=== PATIENT | female | born 1975 | race Caucasian/White ===

== ENCOUNTER 2016-08-06 19:16 | Emergency (ER) | payer MEDICARE ==
[~2016-08-06] VITALS: Ht 165.1 cm; Wt 99.8 kg
[~2016-08-06 19:16] MED LIST: ABILIFY15 MG PO; ABILIFY5 MG PO; ALPHA LIPOIC100 MG PO; ALPHA LIPOIC300 MG PO; ARMOUR THYROID120 MG PO; ARMOUR THYROID90 MG PO; ATARAX25 MG PO; ATIVAN1 MG PO; BENTYL10 MG PO; BENTYL20 MG PO; BONIVA150 MG PO; BUSPIRONE10 MG PO; CALCIUM600 M2 PO; CALCIUM600 MG PO; CARAFATE1 G1 PO; CEFTIN PO; CEFTIN500 M1 PO; CEPHALEXIN500 M1 PO; CIPRO500 MG PO; CIPROFLOXACIN500 MG PO; CLARITIN10 MG PO; CLEOCIN150 MG PO; COLACE100 MG PO; COMBIVENT1 ARO IH; COREG6.25 MG PO; CYCLOBENZAPRINE5 M3 PO; Carafate1 GM PO; DELTASONE20 MG PO; DEXILANT60 MG PO; DICYCLOMINE20 MG PO; DOMPERIDONE1 POW; DOXEPIN100 MG PO; DOXYCYCLINE100 MG PO; DULCOLAX5 MG PO; DULE1ARO INH; DULER200 INH; E MYCIN PO; EES200 MG/5 M PO; ELMIRON100 MG PO; FETZIMA 80 MG PO; FETZIMA120 M1 PO; FLOMAX0.4 MG PO; FLOVENT 220 M220 MCG INH; FLUTICASON0.05 MG/AC NAS; FORADIL AERO0.012 MG IH; FORADIL AEROLIZER; Flovent 220 M220 MCG INH; HYDROCODONE BIT1 T11 PO; HYTONE 2.5% LOT.2 OZ PO; KLONOPIN1 M1 PO; KLONOPIN1 MG PO; KLONOPIN2 MG PO; LATU40TA1 PO; LATU80TA PO; LATUDA PO; LEVSIN0.125 M1 SL; LISINOPRIL5 MG PO; LOMOTIL 0.025 M1 TA1 PO; LORATADINE10 M1 PO; MACROBID100 M1 PO; MACRODANTIN100 MG PO; MEDROL DOSEPAK4 MG PO; MIRALAX17 GM/PACK PO; MULTIPLE VITAMI1 CAP PO; MULTIVITAMIN FO1 CAP PO; NAPROSYN500 MG PO; NEXIUM40 MG PO; NORCO 325 MG-51 TAB PO; OMNICEF300 MG PO; PEPCID40 MG PO; PERIDEX 480 ML480 ML PO; PHENERGAN12.5 MG RC; PHENERGAN25 M3 PO; PHENERGAN25 MG R; PREDNICOT20 MG PO; PREDNISONE10 MG PO; PREVACID30 MG PO; PRILOSEC20 MG PO; PRISTIQ50 MG PO; PROAIR HFA8.5 GM INH; PROTONIX40 MG PO; PYRIDIUM100 MG PO; PYRIDIUM200 M1 PO; PYRIDIUM200 MG PO; Phenergan25 MG PO; QUESTRAN LIGHT4 GM PO; REGLAN5 MG PO; ROBITUSSIN DM 105 ML PO; SEREVENT DISKU50 MCG INH; SEREVENT21 MCG/ACT IH; SINGULAIR10 MG PO; SPIRIVA18 MCG PO; SUDAFED60 MG PO; SYNTHROID,LEV100 MCG PO; SYNTHROID0.1 MG PO; Synthroid,Lev150 MCG PO; TESSALON PERLE200 MG PO; TOPAMAX50 MG PO; TUMS500 MG PO; TYLENOL W/CODEI1 TA2 PO; TYLENOL325 M1 PO; ULTRAM50 MG PO; VENTOLIN 02.5 MG/3 M INH; VENTOLIN H0.09 MG/AC IH; VENTOLIN0.09 MG/AC IH; VIBERZI100 MG PO; VIBRAMYCIN100 MG PO; VIIBRYD PO; VIIBRYD40 PO; VISTARIL50 MG PO; VITAMIN D PO; VITAMIN D400 I1 PO; VITAMIN D400 IU PO; VITAMIN D5000 I2 PO; VIVACTIL10 MG PO; XIFAXAN550 MG PO; ZANTAC 300300 MG PO; ZITHROMAX Z PA250 MG PO; ZITHROMAX250 MG PO; ZOFRAN ODT4 MG PO; ZOFRAN ODT4 MG SL; ZYRTEC10 MG PO; Zofran4 MG PO; [UNRECOGNIZED DRUG - OTHER]; [UNRECOGNIZED DRUG - OTHER] PO; [UNRECOGNIZED DRUG - OTHER] PO; [UNRECOGNIZED DRUG - OTHER] PO; [UNRECOGNIZED DRUG - REMARK]; [UNRECOGNIZED DRUG - REMARK]
[2016-08-06 20:02] LABS: BASO % 0.4 % (0.0-1.0); EOS # 0.1 10*3/uL (0.0-0.4); EOS % 1.5 % (1.0-4.0); HEMATOCRIT 41.4 % (37.0-47.0); LYMPH # 2.2 10*3/uL (1.3-4.4); LYMPH % 26.9 % (27.0-41.0); MEAN CORPUSCULAR HGB 26.7 pg (27.0-31.0); MEAN CORPUSCULAR HGB CONC 31.4 g/dl (33.0-37.0); MEAN PLATELET VOLUME 9.7 fl (9.6-12.3); MONO # 0.7 10*3/uL (0.1-1.0); MONO % 9.1 % (3.0-9.0); NEUT # 5.1 10*3/uL (2.3-7.9); NEUT % 61.9 % (47.0-73.0); PLATELET COUNT AUTOMATED 261 10*3/uL (130-400); RED BLOOD COUNT 4.87 10*6/uL (4.10-5.10); RED CELL DISTRI WIDTH 15.4 % (0-14.5); WHITE BLOOD COUNT 8.2 10*3/uL (4.8-10.8)
[2016-08-06 20:27] LABS: ALBUMIN 3.6 gm/dl (3.1-4.5); ALKALINE PHOSPHATASE 134 U/L (45-117); BILIRUBIN, DIRECT < 0.1 mg/dL (0.0-0.2); BILIRUBIN, TOTAL 0.2 mg/dl (0.2-1.0); BUN 6 mg/dl (7-24); CARBON DIOXIDE 24 mmol/L (21-32); CHLORIDE 108 mmol/L (98-107); EST GLOM FILT AFRICAN AMERICAN > 60 ml/min; GLUCOSE 91 mg/dL (65-99); SGOT/AST 17 IU/L (3-35); SGPT/ALT 24 U/L (12-78); SODIUM 142 mmol/L (136-145); TOTAL PROTEIN 7.6 gm/dL (6.4-8.2)
[2016-08-06 20:44] LABS: BILIRUBIN NEGATIVE (NEGATIVE); BLOOD NEGATIVE (NEGATIVE); CLARITY SL CLOUDY (CLEAR); COLOR YELLOW (YELLOW); GLUCOSE NEGATIVE (NEGATIVE); KETONE NEGATIVE (NEGATIVE); LEUKO ESTERASE 2+ (NEGATIVE); NITRITE NEGATIVE (NEGATIVE); PROTEIN NEGATIVE (NEGATIVE)
[2016-08-06 20:56] LABS: URINE REFLEX COMMENT YES (NO)
[2016-08-06 21:29] VITALS: BP 155/81
[2016-08-06] MEDS ORDERED: PHENERGAN25 M3 PO (21:56)
== END 2016-08-06 21:56 | disposition home or self-care (01) ==
LOC: ED 19:16
PROVIDERS: Emergency Medicine
DX: R10.84 Generalized abdominal pain (principal); R11.2 Nausea with vomiting, unspecified; J45.909 Unspecified asthma, uncomplicated; Z90.710 Acquired absence of both cervix and uterus; Z88.2 Allergy status to sulfonamides; Z88.1 Allergy status to other antibiotic agents; Z88.8 Allergy status to other drugs, medicaments and biological substances; Z88.0 Allergy status to penicillin

== ENCOUNTER 2016-08-18 09:27 | Emergency (ER) | payer MEDICARE ==
[2016-08-18 09:38] VITALS: BP 150/88
[2016-08-18] MEDS ORDERED: HYCODAN,HYDROME10 ML PO (11:00)
== END 2016-08-18 10:36 | disposition home or self-care (01) ==
LOC: ED 09:27
DX: J00 Acute nasopharyngitis [common cold] (principal); Z88.0 Allergy status to penicillin; Z88.1 Allergy status to other antibiotic agents; Z88.8 Allergy status to other drugs, medicaments and biological substances; Z79.899 Other long term (current) drug therapy

== ENCOUNTER 2016-11-01 18:42 | Emergency (ER) | payer MEDICARE ==
[~2016-11-01] VITALS: Ht 165.1 cm; Wt 97.5 kg
[~2016-11-01 18:42] MED LIST changes: +HYCODAN,HYDROME10 ML PO
[2016-11-01] MEDS ORDERED: HYDROXYZINE PAM25 M1 PO (19:06)
[2016-11-01] MEDS ORDERED: BREO ELLIPTA 11 EACH IH (19:06)
[2016-11-01 19:56] LABS: BASO # 0.1 10*3/uL (0.0-0.1); BASO % 0.3 % (0.0-1.0); EOS % 0.2 % (1.0-4.0); HEMATOCRIT 41.3 % (37.0-47.0); HEMOGLOBIN 13.2 g/dl (12.0-16.0); LYMPH # 1.5 10*3/uL (1.3-4.4); LYMPH % 9.4 % (27.0-41.0); MEAN CELL VOLUME 83.4 fl (81.0-99.0); MEAN CORPUSCULAR HGB 26.7 pg (27.0-31.0); MEAN PLATELET VOLUME 9.7 fl (9.6-12.3); MONO # 0.8 10*3/uL (0.1-1.0); MONO % 5.2 % (3.0-9.0); NEUT # 13.6 10*3/uL (2.3-7.9); NEUT % 84.7 % (47.0-73.0); PLATELET COUNT AUTOMATED 271 10*3/uL (130-400); RED BLOOD COUNT 4.95 10*6/uL (4.10-5.10); RED CELL DISTRI WIDTH 15.3 % (0-14.5); WHITE BLOOD COUNT 16.1 10*3/uL (4.8-10.8)
[2016-11-01 20:02] LABS: BILIRUBIN NEGATIVE (NEGATIVE); BLOOD NEGATIVE (NEGATIVE); CLARITY SL CLOUDY (CLEAR); COLOR YELLOW (YELLOW); GLUCOSE NEGATIVE (NEGATIVE); KETONE NEGATIVE (NEGATIVE); LEUKO ESTERASE 2+ (NEGATIVE); NITRITE NEGATIVE (NEGATIVE); PROTEIN NEGATIVE (NEGATIVE); UROBILINOGEN 0.2 E.U./dl (0.2-1.0)
[2016-11-01 20:10] LABS: BACTERIA 3+; RBC 0-2 rbc/hpf (0-2); URINE REFLEX COMMENT YES (NO); WBC 21-30 wbc/hpf (0-5)
[2016-11-01 20:11] LABS: ALBUMIN 3.6 gm/dl (3.1-4.5); ALKALINE PHOSPHATASE 119 U/L (45-117); BILIRUBIN, TOTAL 0.3 mg/dl (0.2-1.0); BUN 13 mg/dl (7-24); CARBON DIOXIDE 22 mmol/L (21-32); CHLORIDE 109 mmol/L (98-107); EST GLOM FILT AFRICAN AMERICAN > 60 ml/min; GLUCOSE 88 mg/dL (65-99); POTASSIUM 3.9 mmol/L (3.5-5.1); SGOT/AST 16 IU/L (3-35); SGPT/ALT 26 U/L (12-78); SODIUM 140 mmol/L (136-145); TOTAL PROTEIN 7.7 gm/dL (6.4-8.2)
[2016-11-01 20:45] VITALS: BP 130/82
[2016-11-01] MEDS ORDERED: ZOFRAN ODT4 MG SL (20:55)
[2016-11-01] MEDS ORDERED: MACRODANTIN100 M1 PO (20:55)
== END 2016-11-01 22:03 | disposition home or self-care (01) ==
LOC: ED 18:42
PROVIDERS: Nurse Practitioner Family
DX: A08.4 Viral intestinal infection, unspecified (principal); N30.00 Acute cystitis without hematuria; Z88.0 Allergy status to penicillin; Z88.1 Allergy status to other antibiotic agents; Z88.2 Allergy status to sulfonamides; Z79.899 Other long term (current) drug therapy

== ENCOUNTER 2016-11-06 17:34 | Emergency (ER) | payer MEDICARE ==
[~2016-11-06] VITALS: Wt 95.3 kg
[~2016-11-06 17:34] MED LIST changes: -AMINOPHYLLIN200 MG PO
[2016-11-06 17:48] VITALS: BP 146/100
[2016-11-06 18:33] LABS: BILIRUBIN NEGATIVE (NEGATIVE); BLOOD NEGATIVE (NEGATIVE); CLARITY SL CLOUDY (CLEAR); COLOR YELLOW (YELLOW); GLUCOSE NEGATIVE (NEGATIVE); KETONE NEGATIVE (NEGATIVE); LEUKO ESTERASE 1+ (NEGATIVE); NITRITE NEGATIVE (NEGATIVE); PH 5.5 (5.0-9.0); PROTEIN NEGATIVE (NEGATIVE); SPECIFIC GRAVITY 1.025 (1.005-1.030)
[2016-11-06 18:49] LABS: BACTERIA 4+; EPITHELIAL CELLS 30-35; WBC 51-100 wbc/hpf (0-5)
[2016-11-06 19:47] LABS: BASO % 0.4 % (0.0-1.0); EOS # 0.1 10*3/uL (0.0-0.4); HEMOGLOBIN 13.2 g/dl (12.0-16.0); LYMPH # 2.4 10*3/uL (1.3-4.4); LYMPH % 24.1 % (27.0-41.0); MEAN CELL VOLUME 84.7 fl (81.0-99.0); MEAN CORPUSCULAR HGB 26.6 pg (27.0-31.0); MEAN CORPUSCULAR HGB CONC 31.4 g/dl (33.0-37.0); MEAN PLATELET VOLUME 9.8 fl (9.6-12.3); MONO # 0.9 10*3/uL (0.1-1.0); MONO % 8.8 % (3.0-9.0); NEUT # 6.4 10*3/uL (2.3-7.9); NEUT % 65.4 % (47.0-73.0); PLATELET COUNT AUTOMATED 289 10*3/uL (130-400); RED BLOOD COUNT 4.96 10*6/uL (4.10-5.10); RED CELL DISTRI WIDTH 15.3 % (0-14.5); WHITE BLOOD COUNT 9.8 10*3/uL (4.8-10.8)
[2016-11-06 20:03] LABS: ALBUMIN 3.7 gm/dl (3.1-4.5); ALKALINE PHOSPHATASE 125 U/L (45-117); BILIRUBIN, TOTAL 0.2 mg/dl (0.2-1.0); BUN 12 mg/dl (7-24); CARBON DIOXIDE 23 mmol/L (21-32); CHLORIDE 108 mmol/L (98-107); EST GLOM FILT AFRICAN AMERICAN > 60 ml/min; GLUCOSE 97 mg/dL (65-99); POTASSIUM 4.7 mmol/L (3.5-5.1); SGOT/AST 14 IU/L (3-35); SGPT/ALT 19 U/L (12-78); SODIUM 138 mmol/L (136-145); TOTAL PROTEIN 7.8 gm/dL (6.4-8.2)
[2016-11-06] MEDS ORDERED: AMINOPHYLLIN200 MG PO (20:54)
== END 2016-11-06 21:04 | disposition home or self-care (01) ==
LOC: ED 17:34
PROVIDERS: Physician Assistant
DX: N30.00 Acute cystitis without hematuria (principal); R19.7 Diarrhea, unspecified; Z88.0 Allergy status to penicillin; Z88.1 Allergy status to other antibiotic agents; Z88.2 Allergy status to sulfonamides; Z79.899 Other long term (current) drug therapy

== ENCOUNTER → 2016-11-06 | Outpatient (CLI) | payer MEDICARE ==
[~2016-11-06] MED LIST changes: +AMINOPHYLLIN200 MG PO; +BREO ELLIPTA 11 EACH IH; +HYDROXYZINE PAM25 M1 PO; +MACRODANTIN100 M1 PO
== END | disposition home or self-care (01) ==
LOC: US 08:51
DX: K76.0 Fatty (change of) liver, not elsewhere classified (principal); R10.84 Generalized abdominal pain

== ENCOUNTER → 2016-11-06 | Outpatient (CLI) | payer MEDICARE | END | disposition home or self-care (01) | LOC: LAB 21:08 | DX: A04.7 Enterocolitis due to Clostridium difficile (principal) ==

== ENCOUNTER → 2016-11-12 | Outpatient (CLI) | payer MEDICARE ==
[~2016-11-12] MED LIST changes: +AMINOPHYLLIN200 MG PO
[2016-11-12 16:30] LABS: BASO # 0.1 10*3/uL (0.0-0.1); BASO % 0.5 % (0.0-1.0); EOS # 0.1 10*3/uL (0.0-0.4); EOS % 0.5 % (1.0-4.0); HEMATOCRIT 41.1 % (37.0-47.0); LYMPH # 2.8 10*3/uL (1.3-4.4); MEAN CORPUSCULAR HGB 26.3 pg (27.0-31.0); MEAN CORPUSCULAR HGB CONC 31.6 g/dl (33.0-37.0); MONO # 0.9 10*3/uL (0.1-1.0); MONO % 9.6 % (3.0-9.0); NEUT # 5.4 10*3/uL (2.3-7.9); NEUT % 59.1 % (47.0-73.0); PLATELET COUNT AUTOMATED 286 10*3/uL (130-400); RED BLOOD COUNT 4.95 10*6/uL (4.10-5.10); RED CELL DISTRI WIDTH 15.4 % (0-14.5); WHITE BLOOD COUNT 9.2 10*3/uL (4.8-10.8)
[2016-11-12 17:07] LABS: FREE T4 1.22 ng/dl (0.76-1.46)
[2016-11-12 17:12] LABS: THYROID STIM HORMONE (HS) 2.04 uIU/ml (0.358-4.75)
== END | disposition home or self-care (01) ==
LOC: LAB 15:54
PROVIDERS: Nurse Practitioner Family
DX: D72.819 Decreased white blood cell count, unspecified (principal); E03.9 Hypothyroidism, unspecified

== ENCOUNTER 2016-11-17 20:34 | Emergency (ER) | payer MEDICARE ==
[~2016-11-17] VITALS: Ht 165.1 cm; Wt 96.2 kg
[2016-11-17 21:09] VITALS: BP 144/82
[2016-11-17 21:12] LABS: BILIRUBIN NEGATIVE (NEGATIVE); BLOOD TRACE-INTACT (NEGATIVE); CLARITY SL CLOUDY (CLEAR); COLOR YELLOW (YELLOW); GLUCOSE NEGATIVE (NEGATIVE); KETONE NEGATIVE (NEGATIVE); LEUKO ESTERASE 2+ (NEGATIVE); NITRITE NEGATIVE (NEGATIVE); PH 5.5 (5.0-9.0); PROTEIN NEGATIVE (NEGATIVE); SPECIFIC GRAVITY 1.025 (1.005-1.030)
[2016-11-17 21:33] LABS: BACTERIA 1+; EPITHELIAL CELLS 20-25; URINE REFLEX COMMENT YES (NO); WBC TNTC wbc/hpf (0-5)
[2016-11-17] MEDS ORDERED: MACROBID100 M1 PO (22:10)
[2016-11-17] MEDS ORDERED: LOMOTIL 0.025 M1 TA1 PO (22:10)
== END 2016-11-17 22:15 | disposition home or self-care (01) ==
LOC: ED 20:34
PROVIDERS: Emergency Medicine Emergency Medical Services
DX: K58.9 Irritable bowel syndrome, unspecified (principal); N39.0 Urinary tract infection, site not specified; F17.200 Nicotine dependence, unspecified, uncomplicated; Z79.899 Other long term (current) drug therapy; Z88.0 Allergy status to penicillin; Z88.1 Allergy status to other antibiotic agents; Z88.2 Allergy status to sulfonamides

== ENCOUNTER 2016-12-05 23:02 | Emergency (ER) | payer MEDICARE ==
[~2016-12-05] VITALS: Ht 165.1 cm; Wt 97.1 kg
[2016-12-05 23:08] VITALS: BP 126/82
[2016-12-06] MEDS ORDERED: NAPROSYN500 MG PO (00:25)
== END 2016-12-06 00:42 | disposition home or self-care (01) ==
LOC: ED 23:02
DX: S09.90XA Unspecified injury of head, initial encounter (principal); K58.9 Irritable bowel syndrome, unspecified; J45.909 Unspecified asthma, uncomplicated; Z90.710 Acquired absence of both cervix and uterus; Z98.890 Other specified postprocedural states; Z79.899 Other long term (current) drug therapy; Z88.0 Allergy status to penicillin; Z88.2 Allergy status to sulfonamides; Z88.1 Allergy status to other antibiotic agents; W20.8XXA Other cause of strike by thrown, projected or falling object, initial encounter; Y93.89 Activity, other specified; Y92.89 Other specified places as the place of occurrence of the external cause; Y99.9 Unspecified external cause status

== ENCOUNTER 2017-01-26 17:27 | Emergency (ER) | payer MEDICARE ==
[~2017-01-26] VITALS: Ht 160 cm; Wt 77.1 kg
[2017-01-26 17:31] VITALS: BP 120/80
[2017-01-26 18:09] LABS: BASO % 0.3 % (0.0-1.0); EOS # 0.1 10*3/uL (0.0-0.4); EOS % 1.1 % (1.0-4.0); HEMATOCRIT 38.1 % (37.0-47.0); HEMOGLOBIN 11.9 g/dl (12.0-16.0); LYMPH # 2.8 10*3/uL (1.3-4.4); LYMPH % 31.3 % (27.0-41.0); MEAN CELL VOLUME 83.7 fl (81.0-99.0); MEAN CORPUSCULAR HGB 26.2 pg (27.0-31.0); MEAN CORPUSCULAR HGB CONC 31.2 g/dl (33.0-37.0); MEAN PLATELET VOLUME 9.4 fl (9.6-12.3); MONO % 10.7 % (3.0-9.0); NEUT # 5.1 10*3/uL (2.3-7.9); NEUT % 56.4 % (47.0-73.0); PLATELET COUNT AUTOMATED 239 10*3/uL (130-400); RED BLOOD COUNT 4.55 10*6/uL (4.10-5.10); RED CELL DISTRI WIDTH 15.9 % (0-14.5)
[2017-01-26 18:35] LABS: ALBUMIN 3.4 gm/dl (3.1-4.5); ALKALINE PHOSPHATASE 124 U/L (45-117); BILIRUBIN, TOTAL 0.2 mg/dl (0.2-1.0); BUN 15 mg/dl (7-24); CARBON DIOXIDE 22 mmol/L (21-32); CHLORIDE 110 mmol/L (98-107); EST GLOM FILT AFRICAN AMERICAN > 60 ml/min; GLUCOSE 90 mg/dL (65-99); POTASSIUM 4.3 mmol/L (3.5-5.1); SGOT/AST 15 IU/L (3-35); SGPT/ALT 24 U/L (12-78); SODIUM 143 mmol/L (136-145)
[2017-01-26 18:36] LABS: TROPONIN I < 0.015 ng/ml (<0.045)
== END 2017-01-26 18:54 | disposition home or self-care (01) ==
LOC: ED 17:27
PROVIDERS: Emergency Medicine
DX: R07.9 Chest pain, unspecified (principal); K21.0 Gastro-esophageal reflux disease with esophagitis; J45.909 Unspecified asthma, uncomplicated; K58.9 Irritable bowel syndrome, unspecified; Z88.0 Allergy status to penicillin; Z88.1 Allergy status to other antibiotic agents; Z88.2 Allergy status to sulfonamides; Z79.899 Other long term (current) drug therapy

== ENCOUNTER 2017-03-01 18:04 | Emergency (ER) | payer MEDICARE ==
[~2017-03-01] VITALS: Ht 165.1 cm; Wt 97.5 kg
[2017-03-01 19:02] VITALS: BP 65/54
[2017-03-01] MEDS ORDERED: Motrin,Rufen800 MG PO (20:30)
== END 2017-03-01 20:32 | disposition home or self-care (01) ==
LOC: ED 18:04
DX: S80.851A Superficial foreign body, right lower leg, initial encounter (principal); K58.9 Irritable bowel syndrome, unspecified; J45.909 Unspecified asthma, uncomplicated; Z79.899 Other long term (current) drug therapy; Z90.710 Acquired absence of both cervix and uterus; Z88.0 Allergy status to penicillin; Z88.2 Allergy status to sulfonamides; Z88.1 Allergy status to other antibiotic agents; Z88.8 Allergy status to other drugs, medicaments and biological substances; X58.XXXA Exposure to other specified factors, initial encounter; Y93.89 Activity, other specified; Y92.89 Other specified places as the place of occurrence of the external cause; Y99.9 Unspecified external cause status

== ENCOUNTER 2017-03-16 19:04 | Emergency (ER) | payer MEDICARE ==
[~2017-03-16] VITALS: Ht 165.1 cm; Wt 97.5 kg
[~2017-03-16 19:04] MED LIST changes: +Motrin,Rufen800 MG PO
[2017-03-16 19:09] VITALS: BP 120/70
== END 2017-03-16 21:35 | disposition home or self-care (01) ==
LOC: ED 19:04
DX: R51 Headache (principal); J02.9 Acute pharyngitis, unspecified; R11.2 Nausea with vomiting, unspecified; Z88.0 Allergy status to penicillin; Z88.2 Allergy status to sulfonamides; Z88.1 Allergy status to other antibiotic agents; Z88.8 Allergy status to other drugs, medicaments and biological substances; Z79.899 Other long term (current) drug therapy

== ENCOUNTER 2017-06-04 01:34 | Emergency (ER) | payer MEDICARE ==
[~2017-06-04] VITALS: Ht 165.1 cm; Wt 95.3 kg
[2017-06-04 01:36] VITALS: BP 116/74
[2017-06-04 01:48] LABS: BILIRUBIN NEGATIVE (NEGATIVE); BLOOD NEGATIVE (NEGATIVE); CLARITY SL CLOUDY (CLEAR); COLOR YELLOW (YELLOW); GLUCOSE NEGATIVE (NEGATIVE); KETONE TRACE (NEGATIVE); LEUKO ESTERASE 2+ (NEGATIVE); NITRITE NEGATIVE (NEGATIVE); PH 6.5 (5.0-9.0); SPECIFIC GRAVITY 1.025 (1.005-1.030)
[2017-06-04 01:55] LABS: EPITHELIAL CELLS 35-40; WBC 31-40 wbc/hpf (0-5)
[2017-06-04 01:56] LABS: BACTERIA TRACE
[2017-06-04 02:19] LABS: BASO % 0.4 % (0.0-1.0); EOS # 0.1 10*3/uL (0.0-0.4); EOS % 1.5 % (1.0-4.0); HEMATOCRIT 42.4 % (37.0-47.0); HEMOGLOBIN 13.8 g/dl (12.0-16.0); LYMPH # 2.9 10*3/uL (1.3-4.4); LYMPH % 33.8 % (27.0-41.0); MEAN CELL VOLUME 88.3 fl (81.0-99.0); MEAN CORPUSCULAR HGB 28.8 pg (27.0-31.0); MEAN CORPUSCULAR HGB CONC 32.5 g/dl (33.0-37.0); MEAN PLATELET VOLUME 10.2 fl (9.6-12.3); MONO # 0.8 10*3/uL (0.1-1.0); NEUT # 4.6 10*3/uL (2.3-7.9); NEUT % 54.9 % (47.0-73.0); PLATELET COUNT AUTOMATED 218 10*3/uL (130-400); WHITE BLOOD COUNT 8.4 10*3/uL (4.8-10.8)
[2017-06-04 02:44] LABS: ALBUMIN 3.9 gm/dl (3.1-4.5); ALKALINE PHOSPHATASE 119 U/L (45-117); BUN 10 mg/dl (7-24); CHLORIDE 108 mmol/L (98-107); LIPASE 97 U/L (73-393); POTASSIUM 3.9 mmol/L (3.5-5.1); SGOT/AST 27 IU/L (3-35); SGPT/ALT 26 U/L (12-78); SODIUM 141 mmol/L (136-145); TOTAL PROTEIN 7.6 gm/dL (6.4-8.2)
[2017-06-04] MEDS ORDERED: MACROBID100 M1 PO (03:26)
[2017-06-04] MEDS ORDERED: ZOFRAN ODT4 MG SL (03:26)
== END 2017-06-04 04:10 | disposition home or self-care (01) ==
LOC: ED 01:34
PROVIDERS: Emergency Medicine Emergency Medical Services
DX: N39.0 Urinary tract infection, site not specified (principal); Z88.0 Allergy status to penicillin; Z88.2 Allergy status to sulfonamides

== ENCOUNTER 2017-06-13 15:21 | Inpatient (IN) | payer MEDICARE ==
[~2017-06-13] VITALS: Ht 165.1 cm; Wt 90.0 kg
--- NOTE | ~2017-06-13 | CON ---
[place], [place] REPORT OF CONSULTATION NAME: VERONICA ELIAS [facility] [id number] UNIT #: [id number] ROOM: 501 DOCTOR: BARBRA JARAMILLOOPHELIANIK BIRTHDATE: [birth year] DOS: 06/14/2017 HISTORY OF PRESENT ILLNESS: A 42-year-old patient who presented with nausea, vomiting for 1 month duration and she had to be admitted for definitive assessment, she had wolff cultures, genital, urine and blood cultures, the only positivity came back gram-positive cocci Streptococcus species sensitive to penicillin and vancomycin. CBC: White blood cell was 11 initially H and H of 15 and 46. Differential within normal limit. Comprehensive metabolic panel: BUN and creatinine within normal limits. Electrolytes were balanced. Bilirubin 0.4, alkaline phosphatase 128. Urinalysis, inactive urine. Troponin was normal. 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 Troponin was negative. Comprehensive metabolic panel was negative. Trichomonas was addressed, no growth was noticed. PAST MEDICAL HISTORY: Associated with gastroesophageal reflux, bipolar, depression, anxiety, migraines cephalalgia, hypothyroidism, and interstitial cystitis has been recorded. PAST SURGICAL HISTORY: Esophagectomy, partial gastric surgery, hysterectomy. SOCIAL HISTORY: Nonsmoker, nonalcohol consumer. ALLERGIES: CIPROFLOXACIN, SULFA, PENICILLIN, METOCLOPRAMIDE. MEDICATIONS: List has been reviewed. The patient is on ibuprofen 800 mg t.i.d. On the other hand, the patient is on pantoprazole. REVIEW OF SYSTEMS: HEENT: Denies double vision, blurred vision. RESPIRATORY: Denies acute shortness of breath. CARDIOVASCULAR: Denies chest pain. DIGESTIVE SYSTEM: Nausea, vomiting, diarrhea. PHYSICAL EXAMINATION: VITAL SIGNS: Stable. HEENT Within normal limits. NECK: Supple, no thyromegaly, no cervical lymphadenopathy. CHEST: Symmetric anatomy, equal expansion. HEART: Normal sinus rhythm, no gallop, no murmur. ABDOMEN: Soft. No hepato-organomegaly, slight obesity. No rebound effect was noticed. EXTREMITIES: No cyanosis, no pedal edema. NEUROLOGIC: Appears to be alert and oriented. LABORATORY DATA: Reviewed. Records reviewed. IMPRESSION: Nausea, vomiting, ruling out dislocated gastric pouch, herniation into diaphragm, past history of esophageal and gastric repair. Details on available migraine cephalalgia, bipolar depression. [place], [place] REPORT OF CONSULTATION NAME: VERONICA ELIAS UNIT #: [id number] ROOM: [facility] DOCTOR: BARBRA JARAMILLO,CATARINO BIRTHDATE: [birth year] PLAN AND DISCUSSION: We are going to endoscopically assess EGD colon and clinical reevaluation. CATARINO BELLE MD CM:CONSTR:REPORT OF CONSULTATION 1507 06/15/17 1020 interface
--- NOTE | ~2017-06-13 | O ---
[place], [place] OPERATIVE NOTE NAME: [id number] UNIT #: [id number] ROOM: 501 DOCTOR: BARBRA JARAMILLOCATARINO BIRTHDATE: [birth year] DOS: 06/14/2017 INDICATIONS: This is a 42-year-old patient with a chief complaint of nausea, vomiting, diarrhea for the past several days. The patient was admitted. 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 There is also hiatal hernia extending to the medial left lung base containing the transverse colon. Her blood cultures were negative. Her urine culture was negative. Genital cultures are positive Gram and positive cocci. She is complaining of diarrhea also. C. diff was negative. PROCEDURE: Today's procedure part of investigation is panendoscopy and colonoscopy. PREMEDICATION: Versed and Diprivan. SCOPE: Olympus forward-viewing gastroscope Q10 video. REPORT: After putting the patient in left lateral position and application of lubricant to the scope, the scope was introduced. Thereafter, under direct visualization, I advanced through the length of esophagus. Esophagogastric junction was defined at 18 cm. This is the site of anastomosis and definitive esophagogastric junction, post partial esophagectomy. Stomach is entirely displaced and there is free reflux of bile. Enteric site was scoped. There is no obstruction. However, the anatomy of the gastric pouch is distorted and access. This is most likely secondary to gastric pull through and the new configuration of the surgery. The patient extubated, tolerated the procedure well. IMPRESSION: Bile reflux gastritis, status post partial esophagectomy and gastric pull. PLAN AND DISCUSSION: This is a configuration that she is going to be living with and antireflux, elevation of the head of the bed all time, what to expect to be done as far as her diarrhea, I am going to check with colonoscopy today. INDICATIONS: This is a 42-year-old patient who has presented with nausea, vomiting, diarrhea to Emergency Room and for few days of nausea, vomiting and diarrhea of uncontrollable status. She has been taking multiple Imodium. It has not done the job yet. PROCEDURE: Today's procedure part of investigation is colonoscopy. PREMEDICATION: Versed and Diprivan. SCOPE: Olympus forward-viewing colonoscope 10L video. REPORT: After putting the patient in left lateral position and application of lubricant to rectal pouch and digital examination, scope was introduced. [place], [place] OPERATIVE NOTE NAME: VERONICA ELIAS UNIT #: [id number] ROOM: [facility] DOCTOR: BARBRA JARAMILLO,CATARINO BIRTHDATE: [birth year] Thereafter, under direct visualization, advanced to mid transverse colon. There is barium retention throughout the colon, detailed visualization impractical. Scope was gradually withdrawn. The patient extubated, tolerated procedure well. IMPRESSION: Retained barium throughout the length of the colon. PLAN AND DISCUSSION: Her stool was foul more than usual and I wonder if there is any other concern that we have to address with. We are going to do ova and parasites and assuring that there is no other cause to diarrhea. Yersinia, Campylobacter jejuni, and all can be ruled out and supportive management otherwise. CATARINO BELLE MD CM:OPRECORD:OPERATIVE NOTE 1641 170 CATARINO BELLE MD 06/14/17 1705 interface
[2017-06-13 15:27] VITALS: BP 171/89
[2017-06-13 16:15] LABS: BASO % 0.3 % (0.0-1.0); EOS # 0.1 10*3/uL (0.0-0.4); EOS % 1.2 % (1.0-4.0); HEMATOCRIT 46.1 % (37.0-47.0); HEMOGLOBIN 15.1 g/dl (12.0-16.0); LYMPH # 2.3 10*3/uL (1.3-4.4); LYMPH % 20.1 % (27.0-41.0); MEAN CELL VOLUME 89.2 fl (81.0-99.0); MEAN CORPUSCULAR HGB 29.2 pg (27.0-31.0); MEAN CORPUSCULAR HGB CONC 32.8 g/dl (33.0-37.0); MEAN PLATELET VOLUME 10.2 fl (9.6-12.3); MONO # 0.8 10*3/uL (0.1-1.0); MONO % 7.3 % (3.0-9.0); NEUT # 8.1 10*3/uL (2.3-7.9); NEUT % 70.7 % (47.0-73.0); PLATELET COUNT AUTOMATED 270 10*3/uL (130-400); RED BLOOD COUNT 5.17 10*6/uL (4.10-5.10); RED CELL DISTRI WIDTH 14.8 % (0-14.5); WHITE BLOOD COUNT 11.4 10*3/uL (4.8-10.8)
--- NOTE | 2017-06-13 16:30 | NUR ---
PT STATES THAT MED FOR PAIN AND NAUSEA HAS BEEN EFFECTIVE. PT RESTING IN BED TALKING WITH FAMILY. WILL CONTINUE TO MONITOR.
[2017-06-13 16:33] LABS: ALBUMIN 4.2 gm/dl (3.1-4.5); ALKALINE PHOSPHATASE 128 U/L (45-117); BUN 14 mg/dl (7-24); CHLORIDE 113 mmol/L (98-107); CREATININE 0.88 mg/dL (0.55-1.02); POTASSIUM 3.8 mmol/L (3.5-5.1); SGOT/AST 21 IU/L (3-35); SGPT/ALT 32 U/L (12-78); SODIUM 138 mmol/L (136-145); TOTAL PROTEIN 8.8 gm/dL (6.4-8.2)
--- NOTE | 2017-06-13 18:20 | NUR ---
PT C/O NAUSEA AT THIS TIME. DR NOTIFIED. SEE NEW ORDERS.
--- NOTE | 2017-06-13 18:30 | NUR ---
PT MEDICATED FOR NAUSEA AT THIS TIME.
--- NOTE | 2017-06-13 18:45 | NUR ---
PT MEDICATED FOR NAUSEA AT THIS TIME.
[2017-06-13 18:56] LABS: BILIRUBIN 1+ (NEGATIVE); BLOOD TRACE-INTACT (NEGATIVE); CLARITY SL CLOUDY (CLEAR); COLOR YELLOW (YELLOW); GLUCOSE NEGATIVE (NEGATIVE); KETONE TRACE (NEGATIVE); LEUKO ESTERASE 1+ (NEGATIVE); NITRITE NEGATIVE (NEGATIVE); SPECIFIC GRAVITY >= 1.030 (1.005-1.030); UROBILINOGEN 0.2 E.U./dl (0.2-1.0)
[2017-06-13 19:05] LABS: BACTERIA 1+; EPITHELIAL CELLS 0-2; MUCOUS 1+; RBC 0-2 rbc/hpf (0-2); WBC 16-20 wbc/hpf (0-5)
--- NOTE | 2017-06-13 19:05 | NUR ---
NURSE TO NURSE REPORT GIVEN TO THIS RN.
[2017-06-13 19:45] VITALS: BP 118/79
--- NOTE | 2017-06-13 19:45 | NUR ---
Time: 1943 A 42 year old FEMALE admitted to 5E under services of BENEDICT LEÓN DO, Pt. arrived via wheel chair from ER. Chief complaint: ABDOMINAL PAIN,NAUSEA,VOMITING,AND DIARRHEA. GILL MALIN
[2017-06-13 20:00] VITALS: BP 118/79
--- NOTE | 2017-06-13 20:05 | NUR ---
Medication reconciliation updated and verified with patient and her medication list from home.
[2017-06-13] MEDS ORDERED: VRAYLAR3 MG PO (20:20)
--- NOTE | 2017-06-13 21:35 | NUR ---
Called and notified Dr. Perla regarding consult and new orders were received.
[2017-06-14] VITALS (9 sets, daily range): BP systolic 91–128; BP diastolic 53–69
[2017-06-14 05:59] LABS: CHLORIDE 112 mmol/L (98-107); POTASSIUM 3.5 mmol/L (3.5-5.1); SODIUM 139 mmol/L (136-145)
[2017-06-14 06:07] LABS: ALBUMIN 3.9 gm/dl (3.1-4.5); ALKALINE PHOSPHATASE 119 U/L (45-117); BUN 9 mg/dl (7-24); CHOLESTEROL 109 mg/dL (<200); CREATININE 0.74 mg/dL (0.55-1.02); HDL CHOLESTEROL 43 mg/dl (40-60); LDL CHOLESTEROL 40 mg/dL (9-159); PHOSPHOROUS 2.3 mg/dL (2.5-4.9); SGOT/AST 20 IU/L (3-35); SGPT/ALT 29 U/L (12-78); TOTAL PROTEIN 7.9 gm/dL (6.4-8.2); TRIGLYCERIDES 131 mg/dl (<150); VLDL CHOLESTEROL 26 mg/dL (6-40)
[2017-06-14 06:10] LABS: BASO % 0.4 % (0.0-1.0); EOS # 0.3 10*3/uL (0.0-0.4); EOS % 3.6 % (1.0-4.0); HEMATOCRIT 44.8 % (37.0-47.0); HEMOGLOBIN 14.2 g/dl (12.0-16.0); LYMPH # 2.2 10*3/uL (1.3-4.4); LYMPH % 27.7 % (27.0-41.0); MEAN CELL VOLUME 90.9 fl (81.0-99.0); MEAN CORPUSCULAR HGB 28.8 pg (27.0-31.0); MEAN CORPUSCULAR HGB CONC 31.7 g/dl (33.0-37.0); MEAN PLATELET VOLUME 10.6 fl (9.6-12.3); MONO # 0.8 10*3/uL (0.1-1.0); NEUT # 4.5 10*3/uL (2.3-7.9); PLATELET COUNT AUTOMATED 213 10*3/uL (130-400); RED BLOOD COUNT 4.93 10*6/uL (4.10-5.10); RED CELL DISTRI WIDTH 14.9 % (0-14.5); WHITE BLOOD COUNT 7.8 10*3/uL (4.8-10.8)
[2017-06-14 08:05] LABS: VITAMIN D, 25-HYDROXY 30.9 ng/mL (30-100)
--- NOTE | 2017-06-14 09:00 | NUR ---
Custom Ski Maker in to talk to patient. Patient states lives at home with . There are few steps in the home. Physician: med kumar Pharmacy: [facility] Home health services: none Patient's level of ADLs: INDEPENDENT Patient has working utilities: all working DME: none Follow-up physician's appointment after d/c: will be made by hospitalist nurse director upon discharge Does patient want to access PORTAL?: no Discharge plan discussed with patient, patient lives at home with , she is independent in adls and ambulation, drives, patient will be going back home when able and denies any home needs. XAVIER MICHEL
--- NOTE | 2017-06-14 14:43 | NUR ---
SW RECIEVED CALL FROM KASANDRA REQUESTING FOOD VOUCHERS DUE TO BEING ON [facility] AND HAVING NO MONEY TO BUY FOOD WHILE WAS IN THE HOSPITAL. SW WILL CHECK ABOUT MEAL VOUCHER AND COME SEE THEM.
--- NOTE | 2017-06-14 14:45 | NUR ---
ROMMEL SPOKE WITH [facility] THAT APPROVED 1 LUNCH BOX FOR FOR SATURDAY AND SATURDAY.
--- NOTE | 2017-06-14 14:46 | NUR ---
SW SPOKE WITH PT TO INFORM HER THAT [facility]UTR[facility] SERVICES WILL SEND UP 1 LUNCH BOX FOR HER HUSABND SATURDAY AND SATURDAY. PT SAID THANK YOU. WENT TO GET HER MOTHER AND WILL BE BACK.
--- NOTE | 2017-06-14 14:47 | NUR ---
PT OFF FLOOR FOR COLO/EGD.
--- NOTE | 2017-06-14 19:30 | NUR ---
ASSUMED CARE OF PT AT THIS TIME, RESPS EASY AND NONLABORED WITH NO S/S OF DISTRESS CALL LIGHT WITH IN REACH
[2017-06-15] VITALS: BP 138/67
[2017-06-15 06:02] LABS: BASO % 0.4 % (0.0-1.0); EOS # 0.2 10*3/uL (0.0-0.4); EOS % 3.9 % (1.0-4.0); HEMATOCRIT 38.9 % (37.0-47.0); HEMOGLOBIN 12.7 g/dl (12.0-16.0); LYMPH # 1.4 10*3/uL (1.3-4.4); LYMPH % 25.7 % (27.0-41.0); MEAN CELL VOLUME 88.6 fl (81.0-99.0); MEAN CORPUSCULAR HGB 28.9 pg (27.0-31.0); MEAN CORPUSCULAR HGB CONC 32.6 g/dl (33.0-37.0); MEAN PLATELET VOLUME 10.7 fl (9.6-12.3); MONO # 0.5 10*3/uL (0.1-1.0); MONO % 9.4 % (3.0-9.0); NEUT # 3.3 10*3/uL (2.3-7.9); NEUT % 60.2 % (47.0-73.0); PLATELET COUNT AUTOMATED 198 10*3/uL (130-400); RED BLOOD COUNT 4.39 10*6/uL (4.10-5.10); RED CELL DISTRI WIDTH 14.7 % (0-14.5); WHITE BLOOD COUNT 5.4 10*3/uL (4.8-10.8)
[2017-06-15 06:32] LABS: BUN 5 mg/dl (7-24); CHLORIDE 112 mmol/L (98-107); CREATININE 0.63 mg/dL (0.55-1.02); POTASSIUM 3.5 mmol/L (3.5-5.1); SODIUM 141 mmol/L (136-145)
[2017-06-15 08:00] VITALS: BP 144/80
--- NOTE | 2017-06-15 08:01 | NUR ---
Shift chart check completed.
[2017-06-15 12:00] VITALS: BP 132/92
[2017-06-15 16:00] VITALS: BP 134/73
--- NOTE | 2017-06-15 19:30 | NUR ---
ASSUMED CARE OF PT AT THIS TIME, RESPS EASY AND NONLABORED WITH NO S/S OF DISTRESS CALL LIGHT WITH IN REACH
[2017-06-15 20:00] VITALS: BP 118/74
[2017-06-16] VITALS: BP 113/70
--- NOTE | 2017-06-16 04:32 | NUR ---
PT RESTING IN BED AT THIS TIME, RESPS EASY AND NONLABORED WITH NO S/S OF DISTRESS CALL LIGHT WITH IN REACH
--- NOTE | 2017-06-16 05:05 | NUR ---
PT C/O ABDOMINAL PAIN AT THIS TIME, REQUESTED PAIN MEDICATION, TYLENOL IF AVAILABLE, ADMINSTERED TYLENOL 650MG PO PRN PER ORDERS AT THIS TIME., CALL LIGHT WITH IN REACH.
--- NOTE | 2017-06-16 05:51 | NUR ---
PT TOOK AM MEDICATIONS WITH NO DIFFICULTY AT THIS TIME, RESPS EASY AND NONLABORED WITH NO S/S OF DISTRESS. CALL LIGHT WITH IN REACH
--- NOTE | 2017-06-16 05:53 | NUR ---
CURRENTLY STOOL FOR OVA AND PARASITE, PENDING AT THIS TIME.
--- NOTE | 2017-06-16 05:55 | NUR ---
PT STATES THAT PAIN HAS SOMEWHAT DECREASED AT THIS TIME, BUT STILL HAS SOME BURNING NOTED.
[2017-06-16 05:59] LABS: BUN 7 mg/dl (7-24); CHLORIDE 111 mmol/L (98-107); CREATININE 0.72 mg/dL (0.55-1.02); SODIUM 138 mmol/L (136-145)
[2017-06-16 06:02] LABS: BASO % 0.6 % (0.0-1.0); EOS # 0.2 10*3/uL (0.0-0.4); EOS % 3.5 % (1.0-4.0); HEMATOCRIT 42.3 % (37.0-47.0); HEMOGLOBIN 14.1 g/dl (12.0-16.0); LYMPH # 1.2 10*3/uL (1.3-4.4); LYMPH % 21.8 % (27.0-41.0); MEAN CELL VOLUME 88.5 fl (81.0-99.0); MEAN CORPUSCULAR HGB 29.5 pg (27.0-31.0); MEAN CORPUSCULAR HGB CONC 33.3 g/dl (33.0-37.0); MEAN PLATELET VOLUME 10.1 fl (9.6-12.3); MONO # 0.6 10*3/uL (0.1-1.0); MONO % 10.3 % (3.0-9.0); NEUT # 3.5 10*3/uL (2.3-7.9); NEUT % 63.6 % (47.0-73.0); PLATELET COUNT AUTOMATED 221 10*3/uL (130-400); RED BLOOD COUNT 4.78 10*6/uL (4.10-5.10); RED CELL DISTRI WIDTH 14.8 % (0-14.5); WHITE BLOOD COUNT 5.4 10*3/uL (4.8-10.8)
[2017-06-16 08:00] VITALS: BP 122/74
--- NOTE | 2017-06-16 09:17 | NUR ---
NOTIFIED DR BELLE THAT STOOL CULTURE CAME BACK NEGATIVE AND STILL WAITING ON O&P
--- NOTE | 2017-06-16 10:12 | NUR ---
PATIENT MEDICATED WITH IV PHENERGAN FOR NAUSEA/VOMITING
--- NOTE | 2017-06-16 11:12 | NUR ---
PATIENT STATES MEDICATION EFFECTIVE
[2017-06-16 12:00] VITALS: BP 99/62
[2017-06-16 16:00] VITALS: BP 136/66
[2017-06-16 17:08] LABS: FATS, NEUTRAL Normal (.); FATS, TOTAL Normal (.)
--- NOTE | 2017-06-16 17:56 | NUR ---
NOTIFIED DR BELLE AND DR PEREZ OF PATIENT'S NEGATIVE STOOL CULTURES AND O&P
[2017-06-16 20:00] VITALS: BP 142/85
[2017-06-17] VITALS: BP 137/51
[2017-06-17 06:42] LABS: BASO % 0.7 % (0.0-1.0); EOS # 0.2 10*3/uL (0.0-0.4); EOS % 3.4 % (1.0-4.0); HEMATOCRIT 42.1 % (37.0-47.0); LYMPH # 1.3 10*3/uL (1.3-4.4); LYMPH % 22.3 % (27.0-41.0); MEAN CELL VOLUME 88.4 fl (81.0-99.0); MEAN CORPUSCULAR HGB 29.4 pg (27.0-31.0); MEAN CORPUSCULAR HGB CONC 33.3 g/dl (33.0-37.0); MEAN PLATELET VOLUME 10.2 fl (9.6-12.3); MONO # 0.6 10*3/uL (0.1-1.0); NEUT # 3.5 10*3/uL (2.3-7.9); NEUT % 62.4 % (47.0-73.0); PLATELET COUNT AUTOMATED 186 10*3/uL (130-400); RED BLOOD COUNT 4.76 10*6/uL (4.10-5.10); RED CELL DISTRI WIDTH 14.7 % (0-14.5); WHITE BLOOD COUNT 5.7 10*3/uL (4.8-10.8)
[2017-06-17 06:56] LABS: BUN 7 mg/dl (7-24); CHLORIDE 110 mmol/L (98-107); POTASSIUM 3.5 mmol/L (3.5-5.1); SODIUM 139 mmol/L (136-145)
[2017-06-17 06:59] LABS: CREATININE 0.75 mg/dL (0.55-1.02)
[2017-06-17 08:00] VITALS: BP 122/72
--- NOTE | 2017-06-17 09:00 | NUR ---
case management visits with patient, patient denies any home needs
[2017-06-17 12:00] VITALS: BP 122/75
[2017-06-17] MEDS ORDERED: FLAGYL500 MG PO (15:18)
--- NOTE | 2017-06-17 16:50 | NUR ---
Discharge instructions reviewed with patient/family. Patient receptive and verbalizes understanding. Follow-up care arranged. Written instructions given to patient/family. AURORA REINA
== END 2017-06-17 16:50 | disposition home or self-care (01) | DRG 872 ==
LOC: ED 15:21 → 5E 18:41 → EDHOLD 18:41 → 5E 18:54
PROVIDERS: Family Medicine; Internal Medicine; Nurse Practitioner Family; ADMIT Internal Medicine
PROC: 0DJ08ZZ Inspection of Upper Intestinal Tract, Via Natural or Artificial Opening Endoscopic (ICD-10-PCS; principal; 2017-06-14)
PROC: 0DJD8ZZ Inspection of Lower Intestinal Tract, Via Natural or Artificial Opening Endoscopic (ICD-10-PCS; 2017-06-14)
DX: A41.9 Sepsis, unspecified organism (principal); E87.8 Other disorders of electrolyte and fluid balance, not elsewhere classified; F31.30 Bipolar disorder, current episode depressed, mild or moderate severity, unspecified; I10 Essential (primary) hypertension; N30.11 Interstitial cystitis (chronic) with hematuria; K21.9 Gastro-esophageal reflux disease without esophagitis; F41.9 Anxiety disorder, unspecified; E03.9 Hypothyroidism, unspecified; G43.909 Migraine, unspecified, not intractable, without status migrainosus; K29.60 Other gastritis without bleeding; K58.0 Irritable bowel syndrome with diarrhea; D72.810 Lymphocytopenia; R74.8 Abnormal levels of other serum enzymes; E66.9 Obesity, unspecified; K44.9 Diaphragmatic hernia without obstruction or gangrene; J45.909 Unspecified asthma, uncomplicated; Z83.3 Family history of diabetes mellitus; Z68.33 Body mass index [BMI] 33.0-33.9, adult; Z88.1 Allergy status to other antibiotic agents; Z88.2 Allergy status to sulfonamides; Z88.0 Allergy status to penicillin; Z88.8 Allergy status to other drugs, medicaments and biological substances; Z87.440 Personal history of urinary (tract) infections; Z90.710 Acquired absence of both cervix and uterus; Z80.0 Family history of malignant neoplasm of digestive organs; Z79.899 Other long term (current) drug therapy

== ENCOUNTER 2017-07-11 10:20 | Emergency (ER) | payer MEDICARE ==
[~2017-07-11] VITALS: Ht 165.1 cm; Wt 95.3 kg
[~2017-07-11 10:20] MED LIST changes: +FLAGYL500 MG PO; +VRAYLAR3 MG PO
[2017-07-11 10:29] VITALS: BP 135/74
[2017-07-11 10:55] LABS: BASO % 0.6 % (0.0-1.0); EOS # 0.1 10*3/uL (0.0-0.4); EOS % 1.2 % (1.0-4.0); HEMATOCRIT 42.9 % (37.0-47.0); LYMPH # 1.7 10*3/uL (1.3-4.4); MEAN CELL VOLUME 89.2 fl (81.0-99.0); MEAN CORPUSCULAR HGB 29.1 pg (27.0-31.0); MEAN CORPUSCULAR HGB CONC 32.6 g/dl (33.0-37.0); MONO # 0.8 10*3/uL (0.1-1.0); NEUT # 4.2 10*3/uL (2.3-7.9); NEUT % 61.9 % (47.0-73.0); PLATELET COUNT AUTOMATED 237 10*3/uL (130-400); RED BLOOD COUNT 4.81 10*6/uL (4.10-5.10); RED CELL DISTRI WIDTH 14.4 % (0-14.5); WHITE BLOOD COUNT 6.8 10*3/uL (4.8-10.8)
[2017-07-11 11:10] LABS: ALBUMIN 3.8 gm/dl (3.1-4.5); ALKALINE PHOSPHATASE 125 U/L (45-117); BUN 8 mg/dl (7-24); CHLORIDE 108 mmol/L (98-107); CREATININE 0.78 mg/dL (0.55-1.02); LIPASE 114 U/L (73-393); POTASSIUM 3.7 mmol/L (3.5-5.1); SGOT/AST 17 IU/L (3-35); SGPT/ALT 30 U/L (12-78); SODIUM 142 mmol/L (136-145)
[2017-07-11 11:18] LABS: BILIRUBIN NEGATIVE (NEGATIVE); BLOOD NEGATIVE (NEGATIVE); CLARITY CLEAR (CLEAR); COLOR YELLOW (YELLOW); GLUCOSE NEGATIVE (NEGATIVE); KETONE NEGATIVE (NEGATIVE); LEUKO ESTERASE TRACE (NEGATIVE); NITRITE NEGATIVE (NEGATIVE); PH 7.5 (5.0-9.0)
[2017-07-11 11:32] LABS: BACTERIA TRACE; RBC 0-2 rbc/hpf (0-2)
== END 2017-07-11 11:43 | disposition home or self-care (01) ==
LOC: ED 10:20
PROVIDERS: Nurse Practitioner Family
DX: K29.00 Acute gastritis without bleeding (principal); R03.0 Elevated blood-pressure reading, without diagnosis of hypertension; Z88.0 Allergy status to penicillin; Z88.1 Allergy status to other antibiotic agents; Z88.2 Allergy status to sulfonamides; Z88.8 Allergy status to other drugs, medicaments and biological substances; Z79.899 Other long term (current) drug therapy

== ENCOUNTER 2017-07-22 19:09 | Emergency (ER) | payer MEDICARE ==
[~2017-07-22] VITALS: Ht 167.6 cm; Wt 108.9 kg
--- NOTE | ~2017-07-22 | EKG ---
[place], [place] ELECTROCARDIOGRAM REPORT [id number] UNIT #: [id number] ROOM: DOCTOR: CAITLIN JARAMILLO,KRISTYN BIRTHDATE: [birth year] DOS: 07/22/2017 TIME: 1917 hours. IMPRESSION: 1. Sinus rhythm, sinus tachycardia. 2. Nonspecific ST-T changes. 3. Normal QT interval. KRISTYN TUCKER MD CM:EKGRPT:ELECTROCARDIOGRAM REPORT [id number] KRISTYN TUCKER MD
[2017-07-22 19:34] LABS: BASO % 0.4 % (0.0-1.0); EOS # 0.1 10*3/uL (0.0-0.4); EOS % 1.3 % (1.0-4.0); HEMATOCRIT 41.8 % (37.0-47.0); HEMOGLOBIN 13.5 g/dl (12.0-16.0); LYMPH # 2.7 10*3/uL (1.3-4.4); MEAN CELL VOLUME 90.1 fl (81.0-99.0); MEAN CORPUSCULAR HGB 29.1 pg (27.0-31.0); MEAN CORPUSCULAR HGB CONC 32.3 g/dl (33.0-37.0); MEAN PLATELET VOLUME 10.2 fl (9.6-12.3); MONO # 1.1 10*3/uL (0.1-1.0); MONO % 10.2 % (3.0-9.0); NEUT # 6.4 10*3/uL (2.3-7.9); NEUT % 61.8 % (47.0-73.0); PLATELET COUNT AUTOMATED 223 10*3/uL (130-400); RED BLOOD COUNT 4.64 10*6/uL (4.10-5.10); RED CELL DISTRI WIDTH 14.1 % (0-14.5); WHITE BLOOD COUNT 10.4 10*3/uL (4.8-10.8)
[2017-07-22 19:44] LABS: ACT PARTIAL THROMBO TIME 25.1 SECONDS (20.8-31.5)
[2017-07-22 19:50] LABS: ALBUMIN 3.7 gm/dl (3.1-4.5); ALKALINE PHOSPHATASE 130 U/L (45-117); BUN 11 mg/dl (7-24); CHLORIDE 110 mmol/L (98-107); POTASSIUM 3.9 mmol/L (3.5-5.1); SGOT/AST 15 IU/L (3-35); SGPT/ALT 30 U/L (12-78); SODIUM 141 mmol/L (136-145); TOTAL PROTEIN 7.8 gm/dL (6.4-8.2)
[2017-07-22 19:52] LABS: TROPONIN I < 0.015 ng/ml (<0.045)
[2017-07-22 22:21] VITALS: BP 124/83
== END 2017-07-22 22:54 | disposition home or self-care (01) ==
LOC: ED 19:09
PROVIDERS: Student in an Organized Health Care Education/Training Program
DX: R07.89 Other chest pain (principal); F41.9 Anxiety disorder, unspecified; F32.9 Major depressive disorder, single episode, unspecified; I10 Essential (primary) hypertension; K21.9 Gastro-esophageal reflux disease without esophagitis; E78.00 Pure hypercholesterolemia, unspecified; E03.9 Hypothyroidism, unspecified; K58.9 Irritable bowel syndrome, unspecified; Z68.34 Body mass index [BMI] 34.0-34.9, adult; G43.909 Migraine, unspecified, not intractable, without status migrainosus; Z90.710 Acquired absence of both cervix and uterus; Z90.89 Acquired absence of other organs; Z88.0 Allergy status to penicillin; Z88.2 Allergy status to sulfonamides; Z88.1 Allergy status to other antibiotic agents; Z88.8 Allergy status to other drugs, medicaments and biological substances; Z79.899 Other long term (current) drug therapy

== ENCOUNTER 2017-10-28 21:54 | Inpatient (IN) | payer MEDICARE ==
[~2017-10-28] VITALS: Ht 165 cm; Wt 87.7 kg
[2017-10-28 21:55] VITALS: BP 109/83
[2017-10-28] MEDS ORDERED: Azithromyc100 MG/5 M PO (21:58)
[2017-10-28] MEDS ORDERED: PROTEIN SUPPLEMENT PO (21:59)
[2017-10-28 22:53] LABS: BASO % 0.5 % (0.0-1.0); EOS # 0.2 10*3/uL (0.0-0.4); EOS % 2.4 % (1.0-4.0); HEMATOCRIT 44.5 % (37.0-47.0); HEMOGLOBIN 13.9 g/dl (12.0-16.0); LYMPH # 2.3 10*3/uL (1.3-4.4); LYMPH % 30.3 % (27.0-41.0); MEAN CELL VOLUME 91.8 fl (81.0-99.0); MEAN CORPUSCULAR HGB 28.7 pg (27.0-31.0); MEAN CORPUSCULAR HGB CONC 31.2 g/dl (33.0-37.0); MEAN PLATELET VOLUME 10.4 fl (9.6-12.3); MONO # 0.7 10*3/uL (0.1-1.0); MONO % 9.4 % (3.0-9.0); NEUT # 4.3 10*3/uL (2.3-7.9); NEUT % 57.3 % (47.0-73.0); PLATELET COUNT AUTOMATED 195 10*3/uL (130-400); RED BLOOD COUNT 4.85 10*6/uL (4.10-5.10); RED CELL DISTRI WIDTH 13.2 % (0-14.5); WHITE BLOOD COUNT 7.5 10*3/uL (4.8-10.8)
[2017-10-28 22:56] LABS: BILIRUBIN NEGATIVE (NEGATIVE); BLOOD TRACE-INTACT (NEGATIVE); CLARITY CLOUDY (CLEAR); COLOR YELLOW (YELLOW); GLUCOSE NEGATIVE (NEGATIVE); KETONE TRACE (NEGATIVE); LEUKO ESTERASE 2+ (NEGATIVE); NITRITE NEGATIVE (NEGATIVE); PH 6.5 (5.0-9.0); SPECIFIC GRAVITY 1.025 (1.005-1.030)
[2017-10-28 23:00] VITALS: BP 126/72
[2017-10-28 23:10] LABS: BACTERIA 1+; EPITHELIAL CELLS TNTC; WBC 41-50 wbc/hpf (0-5)
[2017-10-28 23:10] LABS: ALBUMIN 3.7 gm/dl (3.1-4.5); ALKALINE PHOSPHATASE 101 U/L (45-117); BUN 8 mg/dl (7-24); CHLORIDE 108 mmol/L (98-107); CREATININE 0.87 mg/dL (0.55-1.02); LIPASE 152 U/L (73-393); POTASSIUM 3.5 mmol/L (3.5-5.1); SGOT/AST 19 IU/L (3-35); SGPT/ALT 34 U/L (12-78); SODIUM 141 mmol/L (136-145); TOTAL PROTEIN 7.4 gm/dL (6.4-8.2)
[2017-10-29 01:00] VITALS: BP 122/81
[2017-10-29 02:00] VITALS: BP 109/88
[2017-10-29] MEDS ORDERED: ZANTAC 150150 MG PO (02:21)
[2017-10-29 05:19] LABS: ALBUMIN 3.5 gm/dl (3.1-4.5); ALKALINE PHOSPHATASE 98 U/L (45-117); BUN 6 mg/dl (7-24); CHLORIDE 110 mmol/L (98-107); CHOLESTEROL 101 mg/dL (<200); CREATININE 0.71 mg/dL (0.55-1.02); HDL CHOLESTEROL 51 mg/dl (40-60); LDL CHOLESTEROL 31 mg/dL (9-159); PHOSPHOROUS 2.2 mg/dL (2.5-4.9); POTASSIUM 3.6 mmol/L (3.5-5.1); SGOT/AST 19 IU/L (3-35); SGPT/ALT 34 U/L (12-78); SODIUM 141 mmol/L (136-145); TOTAL PROTEIN 7.1 gm/dL (6.4-8.2); TRIGLYCERIDES 97 mg/dl (<150); VLDL CHOLESTEROL 19 mg/dL (6-40)
[2017-10-29 05:24] LABS: THYROID STIM HORMONE (HS) 0.163 uIU/ml (0.358-4.75)
[2017-10-29 05:58] LABS: BASO % 0.6 % (0.0-1.0); EOS # 0.1 10*3/uL (0.0-0.4); EOS % 1.9 % (1.0-4.0); HEMATOCRIT 42.8 % (37.0-47.0); HEMOGLOBIN 13.3 g/dl (12.0-16.0); LYMPH # 1.9 10*3/uL (1.3-4.4); LYMPH % 26.5 % (27.0-41.0); MEAN CELL VOLUME 90.7 fl (81.0-99.0); MEAN CORPUSCULAR HGB 28.2 pg (27.0-31.0); MEAN CORPUSCULAR HGB CONC 31.1 g/dl (33.0-37.0); MEAN PLATELET VOLUME 10.8 fl (9.6-12.3); MONO # 0.8 10*3/uL (0.1-1.0); MONO % 11.3 % (3.0-9.0); NEUT # 4.3 10*3/uL (2.3-7.9); NEUT % 59.3 % (47.0-73.0); PLATELET COUNT AUTOMATED 181 10*3/uL (130-400); RED BLOOD COUNT 4.72 10*6/uL (4.10-5.10); RED CELL DISTRI WIDTH 13.3 % (0-14.5); WHITE BLOOD COUNT 7.3 10*3/uL (4.8-10.8)
[2017-10-29 06:40] LABS: VITAMIN D, 25-HYDROXY 23.2 ng/mL (30-100)
[2017-10-29 08:00] VITALS: BP 118/62
[2017-10-29 12:00] VITALS: BP 130/68
[2017-10-29 16:00] VITALS: BP 106/57
[2017-10-29 20:00] VITALS: BP 130/83
[2017-10-30] VITALS: BP 129/70
[2017-10-30 08:00] VITALS: BP 124/71
[2017-10-30 12:00] VITALS: BP 128/54
[2017-10-30] MEDS ORDERED: Synthroid,Lev150 MCG PO (12:55)
[2017-10-30] MEDS ORDERED: Vitamin D PO (12:55)
[2017-10-30] MEDS ORDERED: DICYCLOMINE HCL10 MG PO (12:55)
[2017-10-30] MEDS ORDERED: PHARMASSURE FO0.4 MG PO (12:55)
== END 2017-10-30 13:40 | disposition home or self-care (01) | DRG 690 ==
LOC: ED 21:54 → EDHOLD 10-29 00:56 → 4E 10-29 00:56
PROVIDERS: Internal Medicine Nephrology; Nurse Practitioner Family
DX: N39.0 Urinary tract infection, site not specified (principal); E87.8 Other disorders of electrolyte and fluid balance, not elsewhere classified; E83.39 Other disorders of phosphorus metabolism; E83.51 Hypocalcemia; K31.84 Gastroparesis; F31.30 Bipolar disorder, current episode depressed, mild or moderate severity, unspecified; K52.9 Noninfective gastroenteritis and colitis, unspecified; I10 Essential (primary) hypertension; K21.9 Gastro-esophageal reflux disease without esophagitis; F41.9 Anxiety disorder, unspecified; E03.9 Hypothyroidism, unspecified; F31.9 Bipolar disorder, unspecified; J30.2 Other seasonal allergic rhinitis; R07.9 Chest pain, unspecified; R42 Dizziness and giddiness; R00.0 Tachycardia, unspecified; D72.821 Monocytosis (symptomatic); E66.09 Other obesity due to excess calories; I95.1 Orthostatic hypotension; E53.8 Deficiency of other specified B group vitamins; Z88.0 Allergy status to penicillin; Z88.2 Allergy status to sulfonamides; Z88.1 Allergy status to other antibiotic agents; Z88.8 Allergy status to other drugs, medicaments and biological substances; Z82.49 Family history of ischemic heart disease and other diseases of the circulatory system; Z79.899 Other long term (current) drug therapy; Z68.32 Body mass index [BMI] 32.0-32.9, adult; Z90.710 Acquired absence of both cervix and uterus; Z80.0 Family history of malignant neoplasm of digestive organs; Z83.3 Family history of diabetes mellitus

== ENCOUNTER 2017-11-19 12:03 | Emergency (ER) | payer MEDICARE ==
[~2017-11-19] VITALS: Ht 165.1 cm; Wt 84.4 kg
[~2017-11-19 12:03] MED LIST changes: +Azithromyc100 MG/5 M PO; +DICYCLOMINE HCL10 MG PO; +PHARMASSURE FO0.4 MG PO; +PROTEIN SUPPLEMENT PO; +Vitamin D PO; +ZANTAC 150150 MG PO
[2017-11-19 12:04] VITALS: BP 122/86
[2017-11-19 12:42] LABS: BILIRUBIN NEGATIVE (NEGATIVE); BLOOD NEGATIVE (NEGATIVE); CLARITY SL CLOUDY (CLEAR); COLOR YELLOW (YELLOW); GLUCOSE NEGATIVE (NEGATIVE); KETONE 1+ (NEGATIVE); LEUKO ESTERASE NEGATIVE (NEGATIVE); NITRITE NEGATIVE (NEGATIVE); SPECIFIC GRAVITY 1.025 (1.005-1.030)
[2017-11-19 12:59] LABS: BACTERIA 2+; WBC 0-2 wbc/hpf (0-5)
[2017-11-19 13:09] LABS: BASO % 0.4 % (0.0-1.0); EOS # 0.1 10*3/uL (0.0-0.4); EOS % 0.9 % (1.0-4.0); HEMATOCRIT 45.2 % (37.0-47.0); HEMOGLOBIN 14.5 g/dl (12.0-16.0); LYMPH # 1.3 10*3/uL (1.3-4.4); LYMPH % 16.4 % (27.0-41.0); MEAN CELL VOLUME 89.7 fl (81.0-99.0); MEAN CORPUSCULAR HGB 28.8 pg (27.0-31.0); MEAN CORPUSCULAR HGB CONC 32.1 g/dl (33.0-37.0); MEAN PLATELET VOLUME 10.5 fl (9.6-12.3); MONO # 0.7 10*3/uL (0.1-1.0); MONO % 8.7 % (3.0-9.0); NEUT # 5.6 10*3/uL (2.3-7.9); NEUT % 73.2 % (47.0-73.0); PLATELET COUNT AUTOMATED 205 10*3/uL (130-400); RED BLOOD COUNT 5.04 10*6/uL (4.10-5.10); RED CELL DISTRI WIDTH 13.4 % (0-14.5); WHITE BLOOD COUNT 7.7 10*3/uL (4.8-10.8)
[2017-11-19 13:28] LABS: ALKALINE PHOSPHATASE 99 U/L (45-117); BUN 6 mg/dl (7-24); CHLORIDE 107 mmol/L (98-107); CREATININE 1.01 mg/dL (0.55-1.02); POTASSIUM 3.7 mmol/L (3.5-5.1); SGOT/AST 23 IU/L (3-35); SGPT/ALT 28 U/L (12-78); SODIUM 140 mmol/L (136-145); TOTAL PROTEIN 7.9 gm/dL (6.4-8.2)
[2017-11-19] MEDS ORDERED: PHENERGAN25 M3 PO (14:07)
== END 2017-11-19 14:10 | disposition home or self-care (01) ==
LOC: ED 12:03
PROVIDERS: Emergency Medicine
DX: K29.00 Acute gastritis without bleeding (principal); K21.9 Gastro-esophageal reflux disease without esophagitis; G43.909 Migraine, unspecified, not intractable, without status migrainosus; I10 Essential (primary) hypertension; E03.9 Hypothyroidism, unspecified; J45.909 Unspecified asthma, uncomplicated; Z88.0 Allergy status to penicillin; Z88.2 Allergy status to sulfonamides; Z88.1 Allergy status to other antibiotic agents; Z88.8 Allergy status to other drugs, medicaments and biological substances; Z79.899 Other long term (current) drug therapy

== ENCOUNTER 2017-11-20 16:40 | Emergency (ER) | payer MEDICARE ==
[~2017-11-20] VITALS: Wt 84.4 kg
[2017-11-20 16:45] VITALS: BP 119/83
[2017-11-20 17:28] LABS: BASO % 0.6 % (0.0-1.0); EOS # 0.2 10*3/uL (0.0-0.4); EOS % 2.5 % (1.0-4.0); HEMATOCRIT 42.9 % (37.0-47.0); HEMOGLOBIN 13.8 g/dl (12.0-16.0); LYMPH # 2.2 10*3/uL (1.3-4.4); LYMPH % 32.3 % (27.0-41.0); MEAN CELL VOLUME 89.6 fl (81.0-99.0); MEAN CORPUSCULAR HGB 28.8 pg (27.0-31.0); MEAN CORPUSCULAR HGB CONC 32.2 g/dl (33.0-37.0); MEAN PLATELET VOLUME 10.2 fl (9.6-12.3); MONO # 0.8 10*3/uL (0.1-1.0); MONO % 11.7 % (3.0-9.0); NEUT # 3.6 10*3/uL (2.3-7.9); NEUT % 52.8 % (47.0-73.0); PLATELET COUNT AUTOMATED 203 10*3/uL (130-400); RED BLOOD COUNT 4.79 10*6/uL (4.10-5.10); RED CELL DISTRI WIDTH 13.2 % (0-14.5); WHITE BLOOD COUNT 6.8 10*3/uL (4.8-10.8)
[2017-11-20 17:34] LABS: BILIRUBIN NEGATIVE (NEGATIVE); BLOOD NEGATIVE (NEGATIVE); CLARITY CLEAR (CLEAR); COLOR YELLOW (YELLOW); GLUCOSE NEGATIVE (NEGATIVE); KETONE NEGATIVE (NEGATIVE); LEUKO ESTERASE TRACE (NEGATIVE); NITRITE NEGATIVE (NEGATIVE); PH 6.5 (5.0-9.0); SPECIFIC GRAVITY 1.015 (1.005-1.030)
[2017-11-20 17:38] LABS: EPITHELIAL CELLS TNTC; RBC 0-2 rbc/hpf (0-2); WBC 0-2 wbc/hpf (0-5)
[2017-11-20 17:39] LABS: BACTERIA 2+
[2017-11-20 17:43] LABS: ALBUMIN 3.7 gm/dl (3.1-4.5); ALKALINE PHOSPHATASE 96 U/L (45-117); BUN 7 mg/dl (7-24); CHLORIDE 108 mmol/L (98-107); CREATININE 0.94 mg/dL (0.55-1.02); LIPASE 170 U/L (73-393); POTASSIUM 3.4 mmol/L (3.5-5.1); SGOT/AST 22 IU/L (3-35); SGPT/ALT 26 U/L (12-78); SODIUM 138 mmol/L (136-145); TOTAL PROTEIN 7.4 gm/dL (6.4-8.2)
[2017-11-20 17:52] LABS: THYROID STIM HORMONE (HS) 0.141 uIU/ml (0.358-4.75)
== END 2017-11-20 18:33 | disposition home or self-care (01) ==
LOC: ED 16:40
PROVIDERS: Emergency Medicine
DX: R19.7 Diarrhea, unspecified (principal); R11.10 Vomiting, unspecified; E05.90 Thyrotoxicosis, unspecified without thyrotoxic crisis or storm; E83.51 Hypocalcemia; J45.909 Unspecified asthma, uncomplicated; K91.1 Postgastric surgery syndromes; K31.84 Gastroparesis; K21.9 Gastro-esophageal reflux disease without esophagitis; G43.909 Migraine, unspecified, not intractable, without status migrainosus; Z98.890 Other specified postprocedural states; Z90.710 Acquired absence of both cervix and uterus; Z79.899 Other long term (current) drug therapy; Z88.0 Allergy status to penicillin; Z88.2 Allergy status to sulfonamides; Z88.1 Allergy status to other antibiotic agents

== ENCOUNTER → 2017-12-18 | Outpatient (CLI) | payer MEDICARE | END | disposition home or self-care (01) | LOC: MAMMO 07:39 | DX: Z12.31 Encounter for screening mammogram for malignant neoplasm of breast (principal) ==

== ENCOUNTER 2018-02-12 07:46 | Emergency (ER) | payer MEDICARE ==
[~2018-02-12] VITALS: Ht 165.1 cm; Wt 81.2 kg
--- NOTE | ~2018-02-12 | EKG ---
[place], [place] ELECTROCARDIOGRAM REPORT NAME: VERONICA ELIAS UNIT #: [id number] ROOM: DOCTOR: EPIPHANY DRAFT REPORT BIRTHDATE: [birth year] [facility] Test Date: 2018-02-12 Test Time: 08:13:00 Pat Name: VERONICA ELIAS Department: Room: Gender: F Ore Smelter: : 1975 Requested By: NOEMI TA Order Number: [id number] Reading MD: Teresa Lujan MD Measurements Intervals [place] Rate: 83 P: 31 ID: 137 QRS: 73 QRSD: 99 T: 53 QT: 394 QTc: 463 Interpretive Statements Sinus rhythm Electronically Signed On 02-12-2018 8:18:48 PDT by Teresa Lujan MD CM:EKGRPT:ELECTROCARDIOGRAM REPORT 2 7 NOEMI HENDERSON DRAFT REPORT NOEMI TA MD
[2018-02-12 08:16] LABS: BILIRUBIN 2+ (NEGATIVE); BLOOD NEGATIVE (NEGATIVE); CLARITY CLOUDY (CLEAR); COLOR YELLOW (YELLOW); GLUCOSE NEGATIVE (NEGATIVE); KETONE 2+ (NEGATIVE); LEUKO ESTERASE TRACE (NEGATIVE); NITRITE NEGATIVE (NEGATIVE); SPECIFIC GRAVITY >= 1.030 (1.005-1.030)
[2018-02-12 08:32] LABS: BASO % 0.4 % (0.0-1.0); EOS # 0.1 10*3/uL (0.0-0.4); EOS % 2.5 % (1.0-4.0); HEMATOCRIT 44.5 % (37.0-47.0); HEMOGLOBIN 14.5 g/dl (12.0-16.0); LYMPH # 1.1 10*3/uL (1.3-4.4); LYMPH % 21.1 % (27.0-41.0); MEAN CELL VOLUME 88.5 fl (81.0-99.0); MEAN CORPUSCULAR HGB 28.8 pg (27.0-31.0); MEAN CORPUSCULAR HGB CONC 32.6 g/dl (33.0-37.0); MEAN PLATELET VOLUME 10.6 fl (9.6-12.3); MONO # 0.7 10*3/uL (0.1-1.0); MONO % 14.3 % (3.0-9.0); NEUT # 3.2 10*3/uL (2.3-7.9); NEUT % 61.5 % (47.0-73.0); PLATELET COUNT AUTOMATED 181 10*3/uL (130-400); RED BLOOD COUNT 5.03 10*6/uL (4.10-5.10); RED CELL DISTRI WIDTH 14.1 % (0-14.5); WHITE BLOOD COUNT 5.1 10*3/uL (4.8-10.8)
[2018-02-12 08:37] LABS: BACTERIA 3+; EPITHELIAL CELLS 20-30; MUCOUS 2+
[2018-02-12 08:47] LABS: ALBUMIN 4.1 gm/dl (3.1-4.5); ALKALINE PHOSPHATASE 98 U/L (45-117); BUN 4 mg/dl (7-24); CHLORIDE 107 mmol/L (98-107); LIPASE 86 U/L (73-393); POTASSIUM 3.4 mmol/L (3.5-5.1); SGOT/AST 10 IU/L (3-35); SGPT/ALT 19 U/L (12-78); SODIUM 140 mmol/L (136-145); TOTAL PROTEIN 7.7 gm/dL (6.4-8.2)
[2018-02-12 08:54] LABS: ACT PARTIAL THROMBO TIME 21.4 SECONDS (20.8-31.5); INTERNATIONAL NORM RATIO 1.1 (2.0-3.5)
[2018-02-12 08:57] LABS: TROPONIN I < 0.015 ng/ml (<0.045)
[2018-02-12] MEDS ORDERED: PHENERGAN25 MG R (09:05)
[2018-02-12 09:32] VITALS: BP 124/64
== END 2018-02-12 10:53 | disposition home or self-care (01) ==
LOC: ED 07:46
PROVIDERS: Emergency Medicine
DX: E86.0 Dehydration (principal); E87.6 Hypokalemia; R19.7 Diarrhea, unspecified; K91.1 Postgastric surgery syndromes; K31.84 Gastroparesis; R11.0 Nausea; J45.909 Unspecified asthma, uncomplicated; I10 Essential (primary) hypertension; K21.9 Gastro-esophageal reflux disease without esophagitis; E78.00 Pure hypercholesterolemia, unspecified; E05.90 Thyrotoxicosis, unspecified without thyrotoxic crisis or storm; G43.909 Migraine, unspecified, not intractable, without status migrainosus; E66.9 Obesity, unspecified; Z98.890 Other specified postprocedural states; Z90.89 Acquired absence of other organs; Z90.710 Acquired absence of both cervix and uterus; Z79.899 Other long term (current) drug therapy; Z88.0 Allergy status to penicillin; Z88.2 Allergy status to sulfonamides; Z88.1 Allergy status to other antibiotic agents; Z88.8 Allergy status to other drugs, medicaments and biological substances

== ENCOUNTER 2018-03-05 00:52 | Emergency (ER) | payer MEDICARE ==
[~2018-03-05] VITALS: Ht 165.1 cm; Wt 81.6 kg
[2018-03-05 01:11] LABS: BASO % 0.4 % (0.0-1.0); EOS # 0.1 10*3/uL (0.0-0.4); EOS % 1.8 % (1.0-4.0); HEMATOCRIT 39.6 % (37.0-47.0); HEMOGLOBIN 12.9 g/dl (12.0-16.0); LYMPH # 2.5 10*3/uL (1.3-4.4); LYMPH % 33.9 % (27.0-41.0); MEAN CELL VOLUME 89.2 fl (81.0-99.0); MEAN CORPUSCULAR HGB 29.1 pg (27.0-31.0); MEAN CORPUSCULAR HGB CONC 32.6 g/dl (33.0-37.0); MEAN PLATELET VOLUME 9.7 fl (9.6-12.3); MONO # 0.7 10*3/uL (0.1-1.0); NEUT # 3.9 10*3/uL (2.3-7.9); NEUT % 53.8 % (47.0-73.0); PLATELET COUNT AUTOMATED 162 10*3/uL (130-400); RED BLOOD COUNT 4.44 10*6/uL (4.10-5.10); RED CELL DISTRI WIDTH 14.2 % (0-14.5); WHITE BLOOD COUNT 7.2 10*3/uL (4.8-10.8)
[2018-03-05 01:30] LABS: ALBUMIN 3.4 gm/dl (3.1-4.5); ALKALINE PHOSPHATASE 95 U/L (45-117); BUN 6 mg/dl (7-24); CHLORIDE 111 mmol/L (98-107); CREATININE 0.79 mg/dL (0.55-1.02); POTASSIUM 3.2 mmol/L (3.5-5.1); SGOT/AST 12 IU/L (3-35); SGPT/ALT 18 U/L (12-78); SODIUM 141 mmol/L (136-145); TOTAL PROTEIN 6.9 gm/dL (6.4-8.2)
[2018-03-05 01:35] LABS: ACETAMINOPHEN (TYLENOL) < 2.0 ug/ml (10-30); ETHYL ALCOHOL < 3.0 mg/dl (<3)
[2018-03-05 01:39] LABS: BILIRUBIN NEGATIVE (NEGATIVE); BLOOD NEGATIVE (NEGATIVE); CLARITY CLEAR (CLEAR); COLOR YELLOW (YELLOW); GLUCOSE NEGATIVE (NEGATIVE); KETONE NEGATIVE (NEGATIVE); LEUKO ESTERASE NEGATIVE (NEGATIVE); NITRITE NEGATIVE (NEGATIVE); SPECIFIC GRAVITY <= 1.005 (1.005-1.030); UROBILINOGEN 0.2 E.U./dl (0.2-1.0)
[2018-03-05 01:47] LABS: URINE AMPHETAMINES < 1000 (1000ng/ml); URINE BARBITURATES < 200 (200ng/ml); URINE BENZODIAZEPINES < 200 (200ng/ml); URINE CANNABINOIDS (THC) < 50 (50ng/ml); URINE COCAINE < 300 (300ng/ml); URINE METHADONE < 300 (300ng/ml); URINE OPIATES < 300 (300ng/ml)
[2018-03-05 01:48] LABS: URINE PHENCYCLIDINE < 25 (25ng/ml)
[2018-03-05 01:51] LABS: EPITHELIAL CELLS 20-25
[2018-03-05 01:52] LABS: BACTERIA TRACE
[2018-03-05 09:26] VITALS: BP 104/74
== END 2018-03-05 09:35 | disposition home or self-care (01) ==
LOC: ED 00:52
PROVIDERS: Student in an Organized Health Care Education/Training Program
DX: F33.9 Major depressive disorder, recurrent, unspecified (principal); I10 Essential (primary) hypertension; K21.9 Gastro-esophageal reflux disease without esophagitis; E03.9 Hypothyroidism, unspecified; G43.909 Migraine, unspecified, not intractable, without status migrainosus; F31.9 Bipolar disorder, unspecified

== ENCOUNTER 2018-05-05 19:34 | Emergency (ER) | payer MEDICARE ==
[~2018-05-05] VITALS: Ht 165.1 cm; Wt 78.9 kg
[2018-05-05 19:40] VITALS: BP 119/78
[2018-05-05 20:17] LABS: BASO % 0.2 % (0.0-1.0); EOS % 0.3 % (1.0-4.0); HEMATOCRIT 42.4 % (37.0-47.0); HEMOGLOBIN 13.8 g/dl (12.0-16.0); LYMPH # 1.5 10*3/uL (1.3-4.4); LYMPH % 16.6 % (27.0-41.0); MEAN CELL VOLUME 89.6 fl (81.0-99.0); MEAN CORPUSCULAR HGB 29.2 pg (27.0-31.0); MEAN CORPUSCULAR HGB CONC 32.5 g/dl (33.0-37.0); MEAN PLATELET VOLUME 10.7 fl (9.6-12.3); MONO # 0.9 10*3/uL (0.1-1.0); MONO % 10.7 % (3.0-9.0); NEUT # 6.3 10*3/uL (2.3-7.9); PLATELET COUNT AUTOMATED 209 10*3/uL (130-400); RED BLOOD COUNT 4.73 10*6/uL (4.10-5.10); RED CELL DISTRI WIDTH 14.1 % (0-14.5); WHITE BLOOD COUNT 8.7 10*3/uL (4.8-10.8)
[2018-05-05 20:21] LABS: BILIRUBIN NEGATIVE (NEGATIVE); BLOOD NEGATIVE (NEGATIVE); CLARITY CLEAR (CLEAR); COLOR YELLOW (YELLOW); GLUCOSE NEGATIVE (NEGATIVE); KETONE NEGATIVE (NEGATIVE); LEUKO ESTERASE NEGATIVE (NEGATIVE); NITRITE NEGATIVE (NEGATIVE); PH 6.5 (5.0-9.0); SPECIFIC GRAVITY 1.015 (1.005-1.030)
[2018-05-05 20:29] LABS: RBC 0-2 rbc/hpf (0-2); WBC 0-2 wbc/hpf (0-5)
[2018-05-05 20:30] LABS: BACTERIA 2+; MUCOUS TRACE
[2018-05-05 20:33] LABS: ALBUMIN 3.4 gm/dl (3.1-4.5); BUN 7 mg/dl (7-24); CHLORIDE 110 mmol/L (98-107); CREATININE 0.94 mg/dL (0.55-1.02); POTASSIUM 5.1 mmol/L (3.5-5.1); SGOT/AST 36 IU/L (3-35); SGPT/ALT 21 U/L (12-78); SODIUM 137 mmol/L (136-145); TOTAL PROTEIN 7.8 gm/dL (6.4-8.2)
[2018-05-05 20:34] LABS: ALKALINE PHOSPHATASE 121 U/L (45-117)
[2018-05-05] MEDS ORDERED: MACROBID100 M1 PO (21:14)
== END 2018-05-05 21:12 | disposition home or self-care (01) ==
LOC: ED 19:34
PROVIDERS: Emergency Medicine
DX: N39.0 Urinary tract infection, site not specified (principal); B34.9 Viral infection, unspecified; J45.909 Unspecified asthma, uncomplicated; I10 Essential (primary) hypertension; K21.9 Gastro-esophageal reflux disease without esophagitis; G43.909 Migraine, unspecified, not intractable, without status migrainosus; E05.90 Thyrotoxicosis, unspecified without thyrotoxic crisis or storm; E03.9 Hypothyroidism, unspecified; E66.9 Obesity, unspecified; Z88.1 Allergy status to other antibiotic agents; Z88.0 Allergy status to penicillin; Z88.2 Allergy status to sulfonamides; Z88.8 Allergy status to other drugs, medicaments and biological substances; Z79.899 Other long term (current) drug therapy; Z90.710 Acquired absence of both cervix and uterus

== ENCOUNTER 2018-05-14 15:18 | Inpatient (IN) | payer MEDICARE ==
[~2018-05-14] VITALS: Ht 167.6 cm; Wt 78.9 kg
--- NOTE | ~2018-05-14 | EKG ---
[place], [place] ELECTROCARDIOGRAM REPORT NAME: VERONICA ELIAS UNIT #: [id number] ROOM: 525 DOCTOR: SANTIAGO DRAFT REPORT BIRTHDATE: [birth year] [facility] Test Date: 2018-05-15 Test Time: 15:47:34 Pat Name: VERONICA ELIAS Department: Room: [facility] 1 Gender: F Geophysical Operator: MICHELE : 1975 Requested By: REHANA HUDSON Order Number: [id number] Reading MD: Bobby Butler MD Measurements Intervals [place] Rate: 97 P: 59 FL: 143 QRS: 75 QRSD: 91 T: 55 QT: 347 QTc: 441 Interpretive Statements Sinus rhythm Compared to ECG 03/26/2018 17:58:45 Sinus tachycardia no longer present Electronically Signed On 05-15-2018 18:40:06 PDT by Bobby Butler MD CM:EKGRPT:ELECTROCARDIOGRAM REPORT [id number] REHANA SHERMAN DRAFT REPORT REHANA HUDSON DO
[2018-05-14 15:19] VITALS: BP 125/76
[2018-05-14 16:37] LABS: BASO # 0.1 10*3/uL (0.0-0.1); BASO % 0.7 % (0.0-1.0); EOS # 0.2 10*3/uL (0.0-0.4); EOS % 2.7 % (1.0-4.0); HEMATOCRIT 44.8 % (37.0-47.0); HEMOGLOBIN 14.2 g/dl (12.0-16.0); LYMPH # 1.5 10*3/uL (1.3-4.4); MEAN CELL VOLUME 89.6 fl (81.0-99.0); MEAN CORPUSCULAR HGB 28.4 pg (27.0-31.0); MEAN CORPUSCULAR HGB CONC 31.7 g/dl (33.0-37.0); MEAN PLATELET VOLUME 10.4 fl (9.6-12.3); MONO # 0.8 10*3/uL (0.1-1.0); MONO % 8.8 % (3.0-9.0); NEUT # 6.4 10*3/uL (2.3-7.9); NEUT % 70.6 % (47.0-73.0); PLATELET COUNT AUTOMATED 223 10*3/uL (130-400)
[2018-05-14 16:54] LABS: ALBUMIN 3.5 gm/dl (3.1-4.5); ALKALINE PHOSPHATASE 119 U/L (45-117); BUN 6 mg/dl (7-24); CHLORIDE 111 mmol/L (98-107); CREATININE 0.82 mg/dL (0.55-1.02); POTASSIUM 3.7 mmol/L (3.5-5.1); SGOT/AST 22 IU/L (3-35); SGPT/ALT 26 U/L (12-78); SODIUM 140 mmol/L (136-145); TOTAL PROTEIN 7.6 gm/dL (6.4-8.2)
[2018-05-14 20:00] VITALS: BP 139/90
[2018-05-15] VITALS: BP 102/58
[2018-05-15 06:55] LABS: BASO % 0.2 % (0.0-1.0); HEMOGLOBIN 13.6 g/dl (12.0-16.0); LYMPH % 17.5 % (27.0-41.0); MEAN CELL VOLUME 89.2 fl (81.0-99.0); MEAN CORPUSCULAR HGB 28.9 pg (27.0-31.0); MEAN CORPUSCULAR HGB CONC 32.4 g/dl (33.0-37.0); MEAN PLATELET VOLUME 10.7 fl (9.6-12.3); MONO # 0.5 10*3/uL (0.1-1.0); MONO % 8.4 % (3.0-9.0); NEUT # 4.2 10*3/uL (2.3-7.9); NEUT % 73.6 % (47.0-73.0); PLATELET COUNT AUTOMATED 206 10*3/uL (130-400); RED BLOOD COUNT 4.71 10*6/uL (4.10-5.10); WHITE BLOOD COUNT 5.7 10*3/uL (4.8-10.8)
[2018-05-15 07:13] LABS: BUN 4 mg/dl (7-24); CHLORIDE 111 mmol/L (98-107); CREATININE 0.64 mg/dL (0.55-1.02); FREE T4 1.36 ng/dl (0.76-1.46); PHOSPHOROUS 3.3 mg/dL (2.5-4.9); POTASSIUM 3.9 mmol/L (3.5-5.1); SODIUM 140 mmol/L (136-145)
[2018-05-15 07:19] LABS: THYROID STIM HORMONE (HS) 0.959 uIU/ml (0.358-4.75)
[2018-05-15 07:48] LABS: VITAMIN D, 25-HYDROXY 26.2 ng/mL (30-100)
[2018-05-15 08:00] VITALS: BP 104/80
[2018-05-15 12:00] VITALS: BP 128/52
[2018-05-15 16:00] VITALS: BP 104/64
[2018-05-15 20:00] VITALS: BP 115/58
[2018-05-16] VITALS: BP 105/58
[2018-05-16 06:42] LABS: BASO % 0.3 % (0.0-1.0); HEMATOCRIT 41.6 % (37.0-47.0); HEMOGLOBIN 13.6 g/dl (12.0-16.0); LYMPH # 2.3 10*3/uL (1.3-4.4); LYMPH % 22.2 % (27.0-41.0); MEAN CELL VOLUME 89.7 fl (81.0-99.0); MEAN CORPUSCULAR HGB 29.3 pg (27.0-31.0); MEAN CORPUSCULAR HGB CONC 32.7 g/dl (33.0-37.0); MEAN PLATELET VOLUME 11.3 fl (9.6-12.3); MONO # 0.7 10*3/uL (0.1-1.0); MONO % 6.7 % (3.0-9.0); NEUT # 7.4 10*3/uL (2.3-7.9); NEUT % 70.3 % (47.0-73.0); PLATELET COUNT AUTOMATED 204 10*3/uL (130-400); RED BLOOD COUNT 4.64 10*6/uL (4.10-5.10); RED CELL DISTRI WIDTH 14.5 % (0-14.5); WHITE BLOOD COUNT 10.5 10*3/uL (4.8-10.8)
[2018-05-16 07:22] LABS: BUN 7 mg/dl (7-24); CHLORIDE 118 mmol/L (98-107); CREATININE 0.56 mg/dL (0.55-1.02); POTASSIUM 4.1 mmol/L (3.5-5.1); SODIUM 146 mmol/L (136-145)
[2018-05-16 08:00] VITALS: BP 118/72
[2018-05-16 12:00] VITALS: BP 112/62
[2018-05-16 16:00] VITALS: BP 120/65
[2018-05-16 20:00] VITALS: BP 109/61
[2018-05-17] VITALS: BP 117/57
[2018-05-17 06:55] LABS: BASO % 0.3 % (0.0-1.0); HEMATOCRIT 43.9 % (37.0-47.0); LYMPH # 2.5 10*3/uL (1.3-4.4); LYMPH % 22.2 % (27.0-41.0); MEAN CORPUSCULAR HGB 28.7 pg (27.0-31.0); MEAN CORPUSCULAR HGB CONC 31.9 g/dl (33.0-37.0); MEAN PLATELET VOLUME 10.3 fl (9.6-12.3); MONO # 0.7 10*3/uL (0.1-1.0); NEUT % 71.1 % (47.0-73.0); PLATELET COUNT AUTOMATED 236 10*3/uL (130-400); RED BLOOD COUNT 4.88 10*6/uL (4.10-5.10); RED CELL DISTRI WIDTH 14.4 % (0-14.5); WHITE BLOOD COUNT 11.2 10*3/uL (4.8-10.8)
[2018-05-17 07:10] LABS: BUN 8 mg/dl (7-24); CHLORIDE 114 mmol/L (98-107); CREATININE 0.65 mg/dL (0.55-1.02); POTASSIUM 3.6 mmol/L (3.5-5.1); SODIUM 141 mmol/L (136-145)
[2018-05-17 08:00] VITALS: BP 111/52
[2018-05-17] MEDS ORDERED: Zofran4 MG SL (09:47)
[2018-05-17] MEDS ORDERED: MUCINEX ER600 MG PO (09:47)
[2018-05-17] MEDS ORDERED: TESSALON PERLE100 MG PO (09:47)
[2018-05-17] MEDS ORDERED: AVPAK AZITHROM250 MG PO (09:47)
[2018-05-17] MEDS ORDERED: PREDNISONE10 MG PO (09:47)
== END 2018-05-17 11:12 | disposition home or self-care (01) | DRG 871 ==
LOC: ED 15:18 → EDHOLD 18:00 → 5E 18:00
PROVIDERS: Internal Medicine; Physician Assistant
DX: A41.9 Sepsis, unspecified organism (principal); J18.9 Pneumonia, unspecified organism; J44.1 Chronic obstructive pulmonary disease with (acute) exacerbation; F31.30 Bipolar disorder, current episode depressed, mild or moderate severity, unspecified; J44.0 Chronic obstructive pulmonary disease with (acute) lower respiratory infection; E87.8 Other disorders of electrolyte and fluid balance, not elsewhere classified; K58.9 Irritable bowel syndrome, unspecified; N30.10 Interstitial cystitis (chronic) without hematuria; E53.8 Deficiency of other specified B group vitamins; K31.84 Gastroparesis; J45.20 Mild intermittent asthma, uncomplicated; F41.9 Anxiety disorder, unspecified; E03.9 Hypothyroidism, unspecified; I10 Essential (primary) hypertension; K21.9 Gastro-esophageal reflux disease without esophagitis; E83.41 Hypermagnesemia; J84.10 Pulmonary fibrosis, unspecified; E66.9 Obesity, unspecified; G43.909 Migraine, unspecified, not intractable, without status migrainosus; Z90.89 Acquired absence of other organs; Z90.710 Acquired absence of both cervix and uterus; Z90.49 Acquired absence of other specified parts of digestive tract; Z88.0 Allergy status to penicillin; Z88.2 Allergy status to sulfonamides; Z88.8 Allergy status to other drugs, medicaments and biological substances; Z79.899 Other long term (current) drug therapy; Z87.440 Personal history of urinary (tract) infections; Z83.3 Family history of diabetes mellitus; Z82.49 Family history of ischemic heart disease and other diseases of the circulatory system; Z80.0 Family history of malignant neoplasm of digestive organs; Z68.28 Body mass index [BMI] 28.0-28.9, adult

== ENCOUNTER 2018-05-25 18:29 | Emergency (ER) | payer MEDICARE ==
[~2018-05-25] VITALS: Ht 167.6 cm; Wt 78.9 kg
--- NOTE | ~2018-05-25 | EKG ---
[place], [place] ELECTROCARDIOGRAM REPORT NAME: VERONICA ELIAS UNIT #: [id number] ROOM: DOCTOR: EPIPHANY DRAFT REPORT BIRTHDATE: [birth year] [facility] Test Date: 2018-05-25 Test Time: 19:39:13 Pat Name: VERONICA ELIAS Department: Room: Gender: F Energy Efficiency Specialist: Madie Lujan : 1975 Requested By: ALEXANDRA GILMAN PA-C Order Number: [id number] Reading MD: Jairo Novoa MD Measurements Intervals [place] Rate: 96 P: 69 [place]: 135 QRS: 88 QRSD: 82 T: 55 QT: 367 QTc: 464 Interpretive Statements Sinus rhythm Consider left ventricular hypertrophy Compared to ECG 05/15/2018 15:47:34 No significant changes Electronically Signed On 05-26-2018 8:06:07 PDT by Jairo Novoa MD CM:EKGRPT:ELECTROCARDIOGRAM REPORT [id number] ALEXANDRA GILMAN PA-C EPIPHANY DRAFT REPORT ALEXANDRA GILMAN PA-C
[~2018-05-25 18:29] MED LIST changes: +AVPAK AZITHROM250 MG PO; +MUCINEX ER600 MG PO; +TESSALON PERLE100 MG PO; +Zofran4 MG SL
[2018-05-25 18:38] VITALS: BP 115/66
[2018-05-25 19:13] LABS: BASO % 0.1 % (0.0-1.0); EOS % 0.1 % (1.0-4.0); HEMATOCRIT 43.5 % (37.0-47.0); HEMOGLOBIN 14.3 g/dl (12.0-16.0); LYMPH # 2.7 10*3/uL (1.3-4.4); LYMPH % 18.3 % (27.0-41.0); MEAN CELL VOLUME 89.3 fl (81.0-99.0); MEAN CORPUSCULAR HGB 29.4 pg (27.0-31.0); MEAN CORPUSCULAR HGB CONC 32.9 g/dl (33.0-37.0); MEAN PLATELET VOLUME 9.8 fl (9.6-12.3); MONO # 1.2 10*3/uL (0.1-1.0); MONO % 7.7 % (3.0-9.0); NEUT % 73.3 % (47.0-73.0); PLATELET COUNT AUTOMATED 255 10*3/uL (130-400); RED BLOOD COUNT 4.87 10*6/uL (4.10-5.10)
[2018-05-25 19:23] LABS: ACT PARTIAL THROMBO TIME 21.5 SECONDS (20.8-31.5)
[2018-05-25 19:29] LABS: ALBUMIN 3.6 gm/dl (3.1-4.5); ALKALINE PHOSPHATASE 101 U/L (45-117); BUN 14 mg/dl (7-24); CHLORIDE 109 mmol/L (98-107); CREATININE 0.92 mg/dL (0.55-1.02); POTASSIUM 3.9 mmol/L (3.5-5.1); SGOT/AST 18 IU/L (3-35); SGPT/ALT 29 U/L (12-78); SODIUM 139 mmol/L (136-145); TOTAL PROTEIN 7.2 gm/dL (6.4-8.2)
[2018-05-25 19:32] LABS: TROPONIN I < 0.015 ng/ml (<0.045)
[2018-05-25] MEDS ORDERED: Meclizine25 MG PO (20:19)
== END 2018-05-25 20:44 | disposition home or self-care (01) ==
LOC: ED 18:29
PROVIDERS: Physician Assistant
DX: R42 Dizziness and giddiness (principal); J44.9 Chronic obstructive pulmonary disease, unspecified; R11.2 Nausea with vomiting, unspecified; Z88.0 Allergy status to penicillin; Z88.2 Allergy status to sulfonamides; Z88.1 Allergy status to other antibiotic agents; Z88.8 Allergy status to other drugs, medicaments and biological substances; Z79.899 Other long term (current) drug therapy; Z98.890 Other specified postprocedural states; Z90.710 Acquired absence of both cervix and uterus

== ENCOUNTER 2018-05-27 15:32 | Inpatient (IN) | payer MEDICARE ==
[~2018-05-27] VITALS: Ht 167.6 cm; Wt 79.6 kg
--- NOTE | ~2018-05-27 | EKG ---
[place], [place] ELECTROCARDIOGRAM REPORT NAME: VERONICA ELIAS UNIT #: [id number] ROOM: 515 DOCTOR: EPIPHANY DRAFT REPORT BIRTHDATE: [birth year] [facility] Test Date: 2018-05-27 Test Time: 16:28:15 Pat Name: VERONICA ELIAS Department: Room: [facility] Gender: F Dairy Nutritionist: Zoya Burrell : 1975 Requested By: KOBI HATFIELD DNP Order Number: [id number] Reading MD: Bobby Butler MD Measurements Intervals [place] Rate: 103 P: 55 NE: 144 QRS: 74 QRSD: 80 T: 56 QT: 373 QTc: 489 Interpretive Statements Sinus tachycardia Compared to ECG 05/25/2018 19:39:13 Sinus rhythm no longer present Electronically Signed On 05-27-2018 20:09:13 PDT by Bobby Butler MD CM:EKGRPT:ELECTROCARDIOGRAM REPORT [id number] KOBI HOLLIDAYANY DRAFT REPORT KOBI HATFIELD DNP
[~2018-05-27 15:32] MED LIST changes: +Meclizine25 MG PO
[2018-05-27 15:33] VITALS: BP 107/50
[2018-05-27 16:40] VITALS: BP 107/52
[2018-05-27 17:45] VITALS: BP 106/50; BP 106/52
[2018-05-27 18:22] LABS: HEMATOCRIT 45.1 % (37.0-47.0); HEMOGLOBIN 14.4 g/dl (12.0-16.0); MEAN CELL VOLUME 88.1 fl (81.0-99.0); MEAN CORPUSCULAR HGB 28.1 pg (27.0-31.0); MEAN CORPUSCULAR HGB CONC 31.9 g/dl (33.0-37.0); MEAN PLATELET VOLUME 10.8 fl (9.6-12.3); PLATELET COUNT AUTOMATED 194 10*3/uL (130-400); RED BLOOD COUNT 5.12 10*6/uL (4.10-5.10); RED CELL DISTRI WIDTH 14.2 % (0-14.5); WHITE BLOOD COUNT 19.8 10*3/uL (4.8-10.8)
[2018-05-27 18:25] LABS: TOTAL CELLS COUNTED 100 #CELLS
[2018-05-27 18:26] LABS: PLATELET SUFFICIENCY NORMAL (NORMAL)
[2018-05-27 18:30] VITALS: BP 106/50
[2018-05-27 18:35] LABS: ALBUMIN 3.2 gm/dl (3.1-4.5); ALKALINE PHOSPHATASE 97 U/L (45-117); BUN 14 mg/dl (7-24); CHLORIDE 112 mmol/L (98-107); CREATININE 0.77 mg/dL (0.55-1.02); POTASSIUM 4.6 mmol/L (3.5-5.1); SGOT/AST 16 IU/L (3-35); SGPT/ALT 23 U/L (12-78); SODIUM 140 mmol/L (136-145); TOTAL PROTEIN 6.9 gm/dL (6.4-8.2)
[2018-05-27 18:41] LABS: TROPONIN I < 0.015 ng/ml (<0.045)
[2018-05-27 20:10] VITALS: BP 106/52
[2018-05-27 21:10] VITALS: BP 101/47
[2018-05-27] MEDS ORDERED: SYNTHROID300 MCG PO (21:29)
[2018-05-28] VITALS: BP 106/55
[2018-05-28 06:24] LABS: BASO % 0.1 % (0.0-1.0); EOS % 0.1 % (1.0-4.0); HEMATOCRIT 42.9 % (37.0-47.0); HEMOGLOBIN 13.8 g/dl (12.0-16.0); LYMPH # 1.3 10*3/uL (1.3-4.4); LYMPH % 9.1 % (27.0-41.0); MEAN CELL VOLUME 90.7 fl (81.0-99.0); MEAN CORPUSCULAR HGB 29.2 pg (27.0-31.0); MEAN CORPUSCULAR HGB CONC 32.2 g/dl (33.0-37.0); MEAN PLATELET VOLUME 10.1 fl (9.6-12.3); MONO # 0.6 10*3/uL (0.1-1.0); MONO % 4.4 % (3.0-9.0); NEUT # 12.1 10*3/uL (2.3-7.9); NEUT % 85.7 % (47.0-73.0); PLATELET COUNT AUTOMATED 215 10*3/uL (130-400); RED BLOOD COUNT 4.73 10*6/uL (4.10-5.10); RED CELL DISTRI WIDTH 14.4 % (0-14.5); WHITE BLOOD COUNT 14.1 10*3/uL (4.8-10.8)
[2018-05-28 06:43] LABS: CHLORIDE 112 mmol/L (98-107); POTASSIUM 4.4 mmol/L (3.5-5.1); SODIUM 139 mmol/L (136-145)
[2018-05-28 06:47] LABS: BUN 7 mg/dl (7-24); CREATININE 0.58 mg/dL (0.55-1.02); PHOSPHOROUS 2.9 mg/dL (2.5-4.9)
[2018-05-28 07:39] LABS: BILIRUBIN NEGATIVE (NEGATIVE); BLOOD NEGATIVE (NEGATIVE); CLARITY SL CLOUDY (CLEAR); COLOR YELLOW (YELLOW); GLUCOSE NEGATIVE (NEGATIVE); KETONE NEGATIVE (NEGATIVE); LEUKO ESTERASE NEGATIVE (NEGATIVE); NITRITE NEGATIVE (NEGATIVE); PH 6.5 (5.0-9.0)
[2018-05-28 08:06] LABS: BACTERIA 4+; CALCIUM OXALATE CRYSTALS 4+
[2018-05-28 09:26] VITALS: BP 118/62
[2018-05-28 12:00] VITALS: BP 105/60
[2018-05-28 16:00] VITALS: BP 116/66
[2018-05-28 20:00] VITALS: BP 97/66
[2018-05-29] VITALS: BP 110/60
[2018-05-29] MEDS ORDERED: LOPRESSOR25 MG PO (11:50)
[2018-05-29 12:00] VITALS: BP 93/58
== END 2018-05-29 12:47 | disposition home or self-care (01) | DRG 640 ==
LOC: ED 15:32 → 5E 19:49 → EDHOLD 19:49 → 5E 20:33
PROVIDERS: Nurse Practitioner Family; Student in an Organized Health Care Education/Training Program
DX: E86.0 Dehydration (principal); R65.11 Systemic inflammatory response syndrome (SIRS) of non-infectious origin with acute organ dysfunction; J44.1 Chronic obstructive pulmonary disease with (acute) exacerbation; F31.30 Bipolar disorder, current episode depressed, mild or moderate severity, unspecified; F41.9 Anxiety disorder, unspecified; K21.9 Gastro-esophageal reflux disease without esophagitis; K58.0 Irritable bowel syndrome with diarrhea; F31.9 Bipolar disorder, unspecified; E66.9 Obesity, unspecified; E87.8 Other disorders of electrolyte and fluid balance, not elsewhere classified; I95.1 Orthostatic hypotension; E03.9 Hypothyroidism, unspecified; J30.2 Other seasonal allergic rhinitis; K31.84 Gastroparesis; E55.9 Vitamin D deficiency, unspecified; E53.8 Deficiency of other specified B group vitamins; Z88.0 Allergy status to penicillin; Z88.2 Allergy status to sulfonamides; Z88.1 Allergy status to other antibiotic agents; Z88.8 Allergy status to other drugs, medicaments and biological substances; Z90.710 Acquired absence of both cervix and uterus; Z83.3 Family history of diabetes mellitus; Z82.49 Family history of ischemic heart disease and other diseases of the circulatory system; Z80.0 Family history of malignant neoplasm of digestive organs

== ENCOUNTER 2018-07-28 01:04 | Emergency (ER) | payer MEDICARE ==
[~2018-07-28] VITALS: Ht 165.1 cm; Wt 79.4 kg
[~2018-07-28 01:04] MED LIST changes: +LOPRESSOR25 MG PO; +SYNTHROID300 MCG PO
[2018-07-28 01:06] VITALS: BP 123/73
[2018-07-28] MEDS ORDERED: ZITHROMAX250 MG PO (02:41)
[2018-07-28] MEDS ORDERED: PREDNISONE20 M1 PO (02:41)
[2019-02-15] MEDS ORDERED: MACROBID100 M1 PO (21:13)
== END 2018-07-28 03:25 | disposition home or self-care (01) ==
LOC: ED 01:04
DX: J06.9 Acute upper respiratory infection, unspecified (principal); Z88.0 Allergy status to penicillin; Z88.2 Allergy status to sulfonamides; Z88.1 Allergy status to other antibiotic agents; Z88.8 Allergy status to other drugs, medicaments and biological substances; Z79.899 Other long term (current) drug therapy; Z90.710 Acquired absence of both cervix and uterus

== ENCOUNTER 2018-08-17 19:26 | Emergency (ER) | payer MEDICARE ==
[~2018-08-17] VITALS: Ht 165.1 cm; Wt 80.3 kg
[~2018-08-17 19:26] MED LIST changes: +PREDNISONE20 M1 PO
[2018-08-17 19:29] VITALS: BP 115/72
[2018-08-17 19:55] LABS: BASO % 0.2 % (0.0-1.0); EOS # 0.1 10*3/uL (0.0-0.4); EOS % 1.2 % (1.0-4.0); HEMATOCRIT 43.9 % (37.0-47.0); LYMPH # 2.4 10*3/uL (1.3-4.4); LYMPH % 29.9 % (27.0-41.0); MEAN CORPUSCULAR HGB 28.1 pg (27.0-31.0); MEAN CORPUSCULAR HGB CONC 31.9 g/dl (33.0-37.0); MEAN PLATELET VOLUME 10.1 fl (9.6-12.3); MONO # 0.7 10*3/uL (0.1-1.0); MONO % 8.7 % (3.0-9.0); NEUT # 4.8 10*3/uL (2.3-7.9); NEUT % 59.9 % (47.0-73.0); PLATELET COUNT AUTOMATED 209 10*3/uL (130-400); RED BLOOD COUNT 4.99 10*6/uL (4.10-5.10); RED CELL DISTRI WIDTH 14.6 % (0-14.5)
[2018-08-17 20:10] LABS: ALBUMIN 3.7 gm/dl (3.1-4.5); ALKALINE PHOSPHATASE 129 U/L (45-117); BUN 12 mg/dl (7-24); CHLORIDE 113 mmol/L (98-107); CREATININE 0.96 mg/dL (0.55-1.02); LIPASE 90 U/L (73-393); POTASSIUM 3.3 mmol/L (3.5-5.1); SGOT/AST 18 IU/L (3-35); SGPT/ALT 22 U/L (12-78); SODIUM 142 mmol/L (136-145); TOTAL PROTEIN 7.3 gm/dL (6.4-8.2)
[2018-08-17 20:16] LABS: BILIRUBIN NEGATIVE (NEGATIVE); BLOOD NEGATIVE (NEGATIVE); CLARITY CLEAR (CLEAR); COLOR YELLOW (YELLOW); GLUCOSE NEGATIVE (NEGATIVE); KETONE NEGATIVE (NEGATIVE); LEUKO ESTERASE NEGATIVE (NEGATIVE); NITRITE NEGATIVE (NEGATIVE); SPECIFIC GRAVITY 1.025 (1.005-1.030); UROBILINOGEN 0.2 E.U./dl (0.2-1.0)
[2018-08-17 20:24] LABS: BACTERIA 1+; CALCIUM OXALATE CRYSTALS 1+; EPITHELIAL CELLS 15-20
[2018-08-17 20:25] LABS: RBC 0-2 rbc/hpf (0-2)
== END 2018-08-17 21:23 | disposition home or self-care (01) ==
LOC: ED 19:26
PROVIDERS: Physician Assistant
DX: K52.9 Noninfective gastroenteritis and colitis, unspecified (principal); J02.9 Acute pharyngitis, unspecified; Z88.0 Allergy status to penicillin; Z88.2 Allergy status to sulfonamides; Z88.1 Allergy status to other antibiotic agents; Z88.8 Allergy status to other drugs, medicaments and biological substances; Z79.899 Other long term (current) drug therapy; Z79.2 Long term (current) use of antibiotics; Z90.710 Acquired absence of both cervix and uterus

== ENCOUNTER 2018-09-22 20:04 | Emergency (ER) | payer MEDICARE ==
[~2018-09-22] VITALS: Ht 165.1 cm; Wt 80.3 kg
[2018-09-22 20:07] VITALS: BP 125/75
[2018-09-22 20:28] LABS: BASO % 0.4 % (0.0-1.0); EOS # 0.1 10*3/uL (0.0-0.4); EOS % 0.8 % (1.0-4.0); HEMATOCRIT 40.5 % (37.0-47.0); HEMOGLOBIN 12.9 g/dl (12.0-16.0); LYMPH # 2.7 10*3/uL (1.3-4.4); LYMPH % 35.9 % (27.0-41.0); MEAN CELL VOLUME 87.9 fl (81.0-99.0); MEAN CORPUSCULAR HGB CONC 31.9 g/dl (33.0-37.0); MEAN PLATELET VOLUME 10.3 fl (9.6-12.3); MONO # 0.7 10*3/uL (0.1-1.0); MONO % 9.3 % (3.0-9.0); NEUT % 53.5 % (47.0-73.0); PLATELET COUNT AUTOMATED 246 10*3/uL (130-400); RED BLOOD COUNT 4.61 10*6/uL (4.10-5.10); RED CELL DISTRI WIDTH 15.5 % (0-14.5); WHITE BLOOD COUNT 7.5 10*3/uL (4.8-10.8)
[2018-09-22 21:40] LABS: ALBUMIN 3.1 gm/dl (3.1-4.5); ALKALINE PHOSPHATASE 111 U/L (45-117); BUN 7 mg/dl (7-24); CHLORIDE 115 mmol/L (98-107); CREATININE 0.72 mg/dL (0.55-1.02); LIPASE 63 U/L (73-393); POTASSIUM 3.7 mmol/L (3.5-5.1); SGOT/AST 11 IU/L (3-35); SGPT/ALT 16 U/L (12-78); SODIUM 145 mmol/L (136-145); TOTAL PROTEIN 6.5 gm/dL (6.4-8.2)
[2019-02-15] MEDS ORDERED: MACROBID100 M1 PO (21:13)
== END 2018-09-22 21:52 | disposition home or self-care (01) ==
LOC: ED 20:04
PROVIDERS: Student in an Organized Health Care Education/Training Program
DX: R11.2 Nausea with vomiting, unspecified (principal); R19.7 Diarrhea, unspecified; R53.1 Weakness; J45.909 Unspecified asthma, uncomplicated; I10 Essential (primary) hypertension; K21.9 Gastro-esophageal reflux disease without esophagitis; E03.9 Hypothyroidism, unspecified; Z88.0 Allergy status to penicillin; Z88.2 Allergy status to sulfonamides; Z88.1 Allergy status to other antibiotic agents; Z88.8 Allergy status to other drugs, medicaments and biological substances; Z79.899 Other long term (current) drug therapy; Z79.2 Long term (current) use of antibiotics; Z90.710 Acquired absence of both cervix and uterus

== ENCOUNTER → 2018-09-24 | Outpatient (CLI) | payer MEDICARE | END | disposition home or self-care (01) | LOC: LAB 03:24 | DX: R19.7 Diarrhea, unspecified (principal) ==

== ENCOUNTER → 2018-12-25 | Outpatient (CLI) | payer MEDICARE ==
[2018-12-25 11:05] LABS: ALBUMIN 3.5 gm/dl (3.1-4.5); ALKALINE PHOSPHATASE 136 U/L (45-117); BUN 11 mg/dl (7-24); CHLORIDE 113 mmol/L (98-107); FREE T4 1.09 ng/dl (0.76-1.46); POTASSIUM 3.7 mmol/L (3.5-5.1); SGOT/AST 20 IU/L (3-35); SGPT/ALT 25 U/L (12-78); SODIUM 141 mmol/L (136-145)
== END | disposition home or self-care (01) ==
LOC: LAB 09:47
PROVIDERS: Nurse Practitioner Family
DX: E03.9 Hypothyroidism, unspecified (principal); I10 Essential (primary) hypertension

== ENCOUNTER 2019-02-20 18:07 | Emergency (ER) | payer MEDICARE ==
[~2019-02-20] VITALS: Ht 165.1 cm; Wt 79.4 kg
[2019-02-20 18:07] VITALS: BP 147/87
[2019-02-20 18:36] LABS: BASO % 0.3 % (0.0-1.0); EOS % 0.5 % (1.0-4.0); HEMATOCRIT 41.8 % (37.0-47.0); HEMOGLOBIN 13.3 g/dl (12.0-16.0); LYMPH # 1.8 10*3/uL (1.3-4.4); LYMPH % 23.5 % (27.0-41.0); MEAN CELL VOLUME 88.9 fl (81.0-99.0); MEAN CORPUSCULAR HGB 28.3 pg (27.0-31.0); MEAN CORPUSCULAR HGB CONC 31.8 g/dl (33.0-37.0); MEAN PLATELET VOLUME 10.3 fl (9.6-12.3); MONO # 0.9 10*3/uL (0.1-1.0); MONO % 11.7 % (3.0-9.0); NEUT # 4.9 10*3/uL (2.3-7.9); NEUT % 63.6 % (47.0-73.0); PLATELET COUNT AUTOMATED 205 10*3/uL (130-400); RED CELL DISTRI WIDTH 14.1 % (0-14.5); WHITE BLOOD COUNT 7.7 10*3/uL (4.8-10.8)
[2019-02-20 18:54] LABS: ALBUMIN 3.6 gm/dl (3.1-4.5); ALKALINE PHOSPHATASE 144 U/L (45-117); BUN 13 mg/dl (7-24); CHLORIDE 113 mmol/L (98-107); CREATININE 0.99 mg/dL (0.55-1.02); SGOT/AST 31 IU/L (3-35); SGPT/ALT 25 U/L (12-78); SODIUM 141 mmol/L (136-145); TOTAL PROTEIN 7.4 gm/dL (6.4-8.2)
[2019-02-20] MEDS ORDERED: PROAIR HFA8.5 GM INH (20:51)
[2019-02-20] MEDS ORDERED: VENTOLIN 02.5 MG/3 M INH (21:08)
[2019-02-20] MEDS ORDERED: Meclizine25 MG PO (21:09)
== END 2019-02-20 21:08 | disposition home or self-care (01) ==
LOC: ED 18:07
PROVIDERS: Nurse Practitioner Family
DX: J45.909 Unspecified asthma, uncomplicated (principal); I10 Essential (primary) hypertension; E03.9 Hypothyroidism, unspecified; K21.9 Gastro-esophageal reflux disease without esophagitis; G43.909 Migraine, unspecified, not intractable, without status migrainosus; E66.9 Obesity, unspecified; Z88.0 Allergy status to penicillin; Z88.2 Allergy status to sulfonamides; Z88.1 Allergy status to other antibiotic agents; Z91.040 Latex allergy status; Z88.8 Allergy status to other drugs, medicaments and biological substances; Z79.2 Long term (current) use of antibiotics; Z79.899 Other long term (current) drug therapy; Z90.710 Acquired absence of both cervix and uterus

== ENCOUNTER 2019-06-26 09:14 | Emergency (ER) | payer MEDICARE ==
[~2019-06-26] VITALS: Ht 165.1 cm; Wt 80.3 kg
[2019-06-26 09:15] VITALS: BP 127/84
[2019-06-26] MEDS ORDERED: MIRALAX119 GM PO (10:36)
== END 2019-06-26 10:38 | disposition home or self-care (01) ==
LOC: ED 09:14
DX: K59.00 Constipation, unspecified (principal); R19.7 Diarrhea, unspecified; R11.2 Nausea with vomiting, unspecified; K21.9 Gastro-esophageal reflux disease without esophagitis; J45.909 Unspecified asthma, uncomplicated; E07.9 Disorder of thyroid, unspecified; Z88.0 Allergy status to penicillin; Z88.2 Allergy status to sulfonamides; Z88.1 Allergy status to other antibiotic agents; Z91.040 Latex allergy status; Z88.8 Allergy status to other drugs, medicaments and biological substances; Z79.899 Other long term (current) drug therapy; Z79.2 Long term (current) use of antibiotics; Z90.710 Acquired absence of both cervix and uterus

== ENCOUNTER → 2019-07-11 | Outpatient (CLI) | payer MEDICARE ==
[~2019-07-11] MED LIST changes: +MIRALAX119 GM PO; +ZOFRAN4 MG PO
== END | disposition home or self-care (01) ==
LOC: LAB 06:44
DX: R19.7 Diarrhea, unspecified (principal)

== ENCOUNTER 2019-07-12 10:16 | Emergency (ER) | payer MEDICARE ==
[~2019-07-12] VITALS: Ht 165.1 cm; Wt 81.2 kg
[~2019-07-12 10:16] MED LIST changes: -ZOFRAN4 MG PO
[2019-07-12 10:37] LABS: BASO % 0.3 % (0.0-1.0); EOS % 0.4 % (1.0-4.0); HEMATOCRIT 44.6 % (37.0-47.0); HEMOGLOBIN 14.1 g/dl (12.0-16.0); LYMPH # 1.5 10*3/uL (1.3-4.4); LYMPH % 22.5 % (27.0-41.0); MEAN CELL VOLUME 87.8 fl (81.0-99.0); MEAN CORPUSCULAR HGB 27.8 pg (27.0-31.0); MEAN CORPUSCULAR HGB CONC 31.6 g/dl (33.0-37.0); MONO # 0.6 10*3/uL (0.1-1.0); MONO % 9.3 % (3.0-9.0); NEUT # 4.6 10*3/uL (2.3-7.9); NEUT % 67.4 % (47.0-73.0); PLATELET COUNT AUTOMATED 267 10*3/uL (130-400); RED BLOOD COUNT 5.08 10*6/uL (4.10-5.10); RED CELL DISTRI WIDTH 14.1 % (0-14.5); WHITE BLOOD COUNT 6.8 10*3/uL (4.8-10.8)
[2019-07-12 10:53] LABS: ALBUMIN 3.6 gm/dl (3.1-4.5); ALKALINE PHOSPHATASE 115 U/L (45-117); BUN 10 mg/dl (7-24); CHLORIDE 114 mmol/L (98-107); CREATININE 0.99 mg/dL (0.55-1.02); LIPASE 91 U/L (73-393); POTASSIUM 3.9 mmol/L (3.5-5.1); SGOT/AST 19 IU/L (3-35); SGPT/ALT 24 U/L (12-78); SODIUM 142 mmol/L (136-145); TOTAL PROTEIN 7.6 gm/dL (6.4-8.2)
[2019-07-12 11:30] LABS: BILIRUBIN NEGATIVE (NEGATIVE); BLOOD NEGATIVE (NEGATIVE); CLARITY CLEAR (CLEAR); COLOR YELLOW (YELLOW); GLUCOSE NEGATIVE (NEGATIVE); KETONE NEGATIVE (NEGATIVE); LEUKO ESTERASE NEGATIVE (NEGATIVE); NITRITE NEGATIVE (NEGATIVE); PH 7.5 (5.0-9.0); UROBILINOGEN 0.2 E.U./dl (0.2-1.0)
[2019-07-12 11:42] LABS: BACTERIA 1+; RBC 0-2 rbc/hpf (0-2); WBC 0-2 wbc/hpf (0-5)
[2019-07-12 12:02] VITALS: BP 122/74
[2019-07-12] MEDS ORDERED: ZOFRAN4 MG PO (12:36)
== END 2019-07-12 12:37 | disposition home or self-care (01) ==
LOC: ED 10:16
PROVIDERS: Nurse Practitioner Family
DX: A08.4 Viral intestinal infection, unspecified (principal); R11.2 Nausea with vomiting, unspecified; R19.7 Diarrhea, unspecified; K21.9 Gastro-esophageal reflux disease without esophagitis; J45.909 Unspecified asthma, uncomplicated; Z88.0 Allergy status to penicillin; Z88.2 Allergy status to sulfonamides; Z88.1 Allergy status to other antibiotic agents; Z91.040 Latex allergy status; Z88.8 Allergy status to other drugs, medicaments and biological substances; Z79.899 Other long term (current) drug therapy; Z79.2 Long term (current) use of antibiotics; Z90.710 Acquired absence of both cervix and uterus

== ENCOUNTER 2019-07-25 18:18 | Emergency (ER) | payer MEDICARE ==
[~2019-07-25] VITALS: Ht 165.1 cm; Wt 80.7 kg
[~2019-07-25 18:18] MED LIST changes: +ZOFRAN4 MG PO
[2019-07-25 18:19] VITALS: BP 134/89
[2019-07-25 19:07] LABS: BASO % 0.4 % (0.0-1.0); EOS % 0.5 % (1.0-4.0); HEMATOCRIT 40.2 % (37.0-47.0); HEMOGLOBIN 12.7 g/dl (12.0-16.0); LYMPH # 2.4 10*3/uL (1.3-4.4); LYMPH % 32.7 % (27.0-41.0); MEAN CELL VOLUME 86.1 fl (81.0-99.0); MEAN CORPUSCULAR HGB 27.2 pg (27.0-31.0); MEAN CORPUSCULAR HGB CONC 31.6 g/dl (33.0-37.0); MEAN PLATELET VOLUME 9.9 fl (9.6-12.3); MONO # 0.6 10*3/uL (0.1-1.0); MONO % 8.1 % (3.0-9.0); NEUT # 4.3 10*3/uL (2.3-7.9); NEUT % 57.9 % (47.0-73.0); PLATELET COUNT AUTOMATED 267 10*3/uL (130-400); RED BLOOD COUNT 4.67 10*6/uL (4.10-5.10); RED CELL DISTRI WIDTH 13.8 % (0-14.5); WHITE BLOOD COUNT 7.4 10*3/uL (4.8-10.8)
[2019-07-25 19:25] LABS: ALBUMIN 3.5 gm/dl (3.1-4.5); ALKALINE PHOSPHATASE 111 U/L (45-117); BUN 7 mg/dl (7-24); CHLORIDE 110 mmol/L (98-107); CREATININE 0.82 mg/dL (0.55-1.02); LIPASE 44 U/L (73-393); POTASSIUM 3.6 mmol/L (3.5-5.1); SGOT/AST 9 IU/L (3-35); SGPT/ALT 14 U/L (12-78); SODIUM 137 mmol/L (136-145); TOTAL PROTEIN 7.3 gm/dL (6.4-8.2)
[2019-07-25 20:01] LABS: BILIRUBIN NEGATIVE (NEGATIVE); BLOOD NEGATIVE (NEGATIVE); CLARITY CLEAR (CLEAR); COLOR YELLOW (YELLOW); GLUCOSE NEGATIVE (NEGATIVE); KETONE NEGATIVE (NEGATIVE); LEUKO ESTERASE NEGATIVE (NEGATIVE); NITRITE NEGATIVE (NEGATIVE); UROBILINOGEN 0.2 E.U./dl (0.2-1.0)
[2019-07-25 20:12] LABS: BACTERIA 2+; WBC 0-2 wbc/hpf (0-5)
[2019-07-25] MEDS ORDERED: VIBRAMYCIN100 MG PO (22:05)
== END 2019-07-25 22:16 | disposition home or self-care (01) ==
LOC: ED 18:18
PROVIDERS: Nurse Practitioner Family
DX: J98.8 Other specified respiratory disorders (principal); R19.7 Diarrhea, unspecified; R11.0 Nausea; R10.9 Unspecified abdominal pain; Z88.0 Allergy status to penicillin; Z88.2 Allergy status to sulfonamides; Z88.1 Allergy status to other antibiotic agents; Z88.8 Allergy status to other drugs, medicaments and biological substances; Z91.040 Latex allergy status; Z79.899 Other long term (current) drug therapy

== ENCOUNTER 2019-07-31 17:39 | Emergency (ER) | payer MEDICARE ==
[~2019-07-31] VITALS: Ht 165.1 cm; Wt 80.7 kg
[2019-07-31 17:39] VITALS: BP 133/61
[2019-07-31 18:39] LABS: BASO % 0.4 % (0.0-1.0); EOS # 0.1 10*3/uL (0.0-0.4); EOS % 0.7 % (1.0-4.0); HEMATOCRIT 44.9 % (37.0-47.0); HEMOGLOBIN 14.1 g/dl (12.0-16.0); LYMPH # 2.9 10*3/uL (1.3-4.4); LYMPH % 31.4 % (27.0-41.0); MEAN CELL VOLUME 86.5 fl (81.0-99.0); MEAN CORPUSCULAR HGB 27.2 pg (27.0-31.0); MEAN CORPUSCULAR HGB CONC 31.4 g/dl (33.0-37.0); MEAN PLATELET VOLUME 9.7 fl (9.6-12.3); MONO # 0.8 10*3/uL (0.1-1.0); NEUT # 5.3 10*3/uL (2.3-7.9); NEUT % 58.3 % (47.0-73.0); PLATELET COUNT AUTOMATED 306 10*3/uL (130-400); RED BLOOD COUNT 5.19 10*6/uL (4.10-5.10); RED CELL DISTRI WIDTH 13.8 % (0-14.5); WHITE BLOOD COUNT 9.2 10*3/uL (4.8-10.8)
[2019-07-31 18:55] LABS: ALBUMIN 3.7 gm/dl (3.1-4.5); ALKALINE PHOSPHATASE 112 U/L (45-117); BUN 10 mg/dl (7-24); CHLORIDE 111 mmol/L (98-107); CREATININE 0.99 mg/dL (0.55-1.02); LIPASE 123 U/L (73-393); POTASSIUM 3.3 mmol/L (3.5-5.1); SGOT/AST 15 IU/L (3-35); SGPT/ALT 17 U/L (12-78); SODIUM 141 mmol/L (136-145); TOTAL PROTEIN 7.5 gm/dL (6.4-8.2)
[2019-07-31 19:00] LABS: BILIRUBIN NEGATIVE (NEGATIVE); BLOOD NEGATIVE (NEGATIVE); CLARITY CLEAR (CLEAR); COLOR YELLOW (YELLOW); GLUCOSE NEGATIVE (NEGATIVE); KETONE NEGATIVE (NEGATIVE); LEUKO ESTERASE NEGATIVE (NEGATIVE); NITRITE NEGATIVE (NEGATIVE); SPECIFIC GRAVITY 1.015 (1.005-1.030); UROBILINOGEN 0.2 E.U./dl (0.2-1.0)
[2019-07-31 19:07] LABS: BACTERIA 2+; EPITHELIAL CELLS 0-2; WBC 0-2 wbc/hpf (0-5)
[2019-07-31] MEDS ORDERED: CEPHALEXIN500 M1 PO (20:51)
== END 2019-07-31 21:03 | disposition home or self-care (01) ==
LOC: ED 17:39
PROVIDERS: Nurse Practitioner Family
DX: R11.2 Nausea with vomiting, unspecified (principal); J45.909 Unspecified asthma, uncomplicated; K21.9 Gastro-esophageal reflux disease without esophagitis; E03.9 Hypothyroidism, unspecified; I10 Essential (primary) hypertension; G43.909 Migraine, unspecified, not intractable, without status migrainosus; E66.9 Obesity, unspecified; Z88.0 Allergy status to penicillin; Z88.1 Allergy status to other antibiotic agents; Z88.2 Allergy status to sulfonamides; Z88.8 Allergy status to other drugs, medicaments and biological substances; Z91.040 Latex allergy status; Z79.899 Other long term (current) drug therapy

== ENCOUNTER 2019-08-12 11:39 | Emergency (ER) | payer MEDICARE ==
[~2019-08-12] VITALS: Ht 165.1 cm; Wt 81.2 kg
[2019-08-12 12:15] LABS: BASO % 0.3 % (0.0-1.0); EOS % 0.3 % (1.0-4.0); HEMATOCRIT 43.9 % (37.0-47.0); HEMOGLOBIN 13.6 g/dl (12.0-16.0); LYMPH # 1.8 10*3/uL (1.3-4.4); LYMPH % 29.8 % (27.0-41.0); MEAN CELL VOLUME 86.9 fl (81.0-99.0); MEAN CORPUSCULAR HGB 26.9 pg (27.0-31.0); MEAN PLATELET VOLUME 10.5 fl (9.6-12.3); MONO # 0.6 10*3/uL (0.1-1.0); MONO % 9.4 % (3.0-9.0); NEUT # 3.7 10*3/uL (2.3-7.9); PLATELET COUNT AUTOMATED 242 10*3/uL (130-400); RED BLOOD COUNT 5.05 10*6/uL (4.10-5.10); RED CELL DISTRI WIDTH 13.9 % (0-14.5); WHITE BLOOD COUNT 6.2 10*3/uL (4.8-10.8)
[2019-08-12 12:25] LABS: ACT PARTIAL THROMBO TIME 24.8 SECONDS (20.0-32.1)
[2019-08-12 12:38] LABS: ALBUMIN 3.8 gm/dl (3.1-4.5); ALKALINE PHOSPHATASE 117 U/L (45-117); CHLORIDE 109 mmol/L (98-107); CREATININE 0.98 mg/dL (0.55-1.02); POTASSIUM 3.8 mmol/L (3.5-5.1); SGOT/AST 16 IU/L (3-35); SGPT/ALT 21 U/L (12-78); SODIUM 139 mmol/L (136-145); TOTAL PROTEIN 7.5 gm/dL (6.4-8.2)
[2019-08-12 12:39] LABS: TROPONIN I < 0.015 ng/ml (<0.045)
[2019-08-12 12:46] LABS: BUN 9 mg/dl (7-24)
[2019-08-12 14:00] VITALS: BP 105/54
== END 2019-08-12 15:40 | disposition home or self-care (01) ==
LOC: ED 11:39
PROVIDERS: Emergency Medicine
DX: R07.9 Chest pain, unspecified (principal); Z79.899 Other long term (current) drug therapy; Z88.0 Allergy status to penicillin; Z88.2 Allergy status to sulfonamides; Z88.1 Allergy status to other antibiotic agents; Z91.040 Latex allergy status; Z88.8 Allergy status to other drugs, medicaments and biological substances

== ENCOUNTER 2019-10-13 06:46 | Emergency (ER) | payer MEDICARE ==
[~2019-10-13] VITALS: Ht 165.1 cm; Wt 81.6 kg
[2019-10-13 07:39] LABS: BASO % 0.2 % (0.0-1.0); EOS # 0.1 10*3/uL (0.0-0.4); EOS % 0.4 % (1.0-4.0); HEMATOCRIT 41.9 % (37.0-47.0); HEMOGLOBIN 13.3 g/dl (12.0-16.0); LYMPH # 1.4 10*3/uL (1.3-4.4); LYMPH % 9.7 % (27.0-41.0); MEAN CELL VOLUME 83.1 fl (81.0-99.0); MEAN CORPUSCULAR HGB 26.4 pg (27.0-31.0); MEAN CORPUSCULAR HGB CONC 31.7 g/dl (33.0-37.0); MONO # 1.2 10*3/uL (0.1-1.0); MONO % 8.5 % (3.0-9.0); NEUT # 11.4 10*3/uL (2.3-7.9); NEUT % 80.8 % (47.0-73.0); PLATELET COUNT AUTOMATED 226 10*3/uL (130-400); RED BLOOD COUNT 5.04 10*6/uL (4.10-5.10); RED CELL DISTRI WIDTH 14.9 % (0-14.5); WHITE BLOOD COUNT 14.1 10*3/uL (4.8-10.8)
[2019-10-13 07:54] LABS: ALBUMIN 3.6 gm/dl (3.1-4.5); ALKALINE PHOSPHATASE 142 U/L (45-117); BUN 8 mg/dl (7-24); CHLORIDE 109 mmol/L (98-107); CREATININE 0.84 mg/dL (0.55-1.02); POTASSIUM 3.4 mmol/L (3.5-5.1); SGOT/AST 8 IU/L (3-35); SGPT/ALT 16 U/L (12-78); SODIUM 138 mmol/L (136-145); TOTAL PROTEIN 7.7 gm/dL (6.4-8.2)
[2019-10-13 07:57] LABS: BETA-HCG, QUANT < 1.0 mIU/mL (1-3)
[2019-10-13 08:08] LABS: BILIRUBIN 1+ (NEGATIVE); BLOOD NEGATIVE (NEGATIVE); CLARITY SL CLOUDY (CLEAR); COLOR YELLOW (YELLOW); GLUCOSE NEGATIVE (NEGATIVE); KETONE NEGATIVE (NEGATIVE); LEUKO ESTERASE NEGATIVE (NEGATIVE); NITRITE NEGATIVE (NEGATIVE); PH 7.5 (5.0-9.0); SPECIFIC GRAVITY 1.015 (1.005-1.030)
[2019-10-13 08:12] LABS: BACTERIA 2+; CALCIUM OXALATE CRYSTALS 1+
[2019-10-13 08:14] LABS: MUCOUS 1+
[2019-10-13] MEDS ORDERED: ZITHROMAX250 MG PO (09:41)
[2019-10-13 09:48] VITALS: BP 113/75
[2019-10-13] MEDS ORDERED: ZOFRAN4 MG PO (09:50)
== END 2019-10-13 09:58 | disposition home or self-care (01) ==
LOC: ED 06:46
PROVIDERS: Emergency Medicine
DX: J40 Bronchitis, not specified as acute or chronic (principal); K29.70 Gastritis, unspecified, without bleeding; K21.9 Gastro-esophageal reflux disease without esophagitis; J45.909 Unspecified asthma, uncomplicated; I10 Essential (primary) hypertension; G43.909 Migraine, unspecified, not intractable, without status migrainosus; E03.9 Hypothyroidism, unspecified; E66.9 Obesity, unspecified; Z88.0 Allergy status to penicillin; Z88.2 Allergy status to sulfonamides; Z88.1 Allergy status to other antibiotic agents; Z91.040 Latex allergy status; Z88.8 Allergy status to other drugs, medicaments and biological substances; Z79.2 Long term (current) use of antibiotics; Z79.899 Other long term (current) drug therapy; Z68.25 Body mass index [BMI] 25.0-25.9, adult; Z90.710 Acquired absence of both cervix and uterus; Z98.890 Other specified postprocedural states

== ENCOUNTER 2019-10-20 17:38 | Emergency (ER) | payer MEDICARE ==
[~2019-10-20] VITALS: Ht 165.1 cm; Wt 81.6 kg
[2019-10-20 17:41] VITALS: BP 113/62
[2019-10-20] MEDS ORDERED: ROBITUSSIN DM 105 ML PO (17:42)
[2019-10-20] MEDS ORDERED: FLONASE ALLERG9.9 ML NAS (17:42)
[2019-10-20] MEDS ORDERED: ZYRTEC10 M3 PO (17:42)
== END 2019-10-20 17:42 | disposition home or self-care (01) ==
LOC: ED 17:38
DX: B34.9 Viral infection, unspecified (principal); Z88.0 Allergy status to penicillin; Z88.2 Allergy status to sulfonamides; Z88.1 Allergy status to other antibiotic agents; Z91.040 Latex allergy status; Z88.8 Allergy status to other drugs, medicaments and biological substances; Z79.899 Other long term (current) drug therapy

== ENCOUNTER 2019-11-10 15:41 | Emergency (ER) | payer MEDICARE ==
[~2019-11-10] VITALS: Ht 165.1 cm; Wt 81.6 kg
[~2019-11-10 15:41] MED LIST changes: +FLONASE ALLERG9.9 ML NAS; +ZYRTEC10 M3 PO
[2019-11-10 15:46] VITALS: BP 121/76
[2019-11-10 16:46] LABS: BASO % 0.3 % (0.0-1.0); EOS % 0.3 % (1.0-4.0); HEMATOCRIT 41.7 % (37.0-47.0); LYMPH # 2.1 10*3/uL (1.3-4.4); LYMPH % 16.4 % (27.0-41.0); MEAN CORPUSCULAR HGB 26.8 pg (27.0-31.0); MEAN CORPUSCULAR HGB CONC 31.2 g/dl (33.0-37.0); MONO # 1.1 10*3/uL (0.1-1.0); MONO % 8.5 % (3.0-9.0); NEUT # 9.4 10*3/uL (2.3-7.9); NEUT % 74.2 % (47.0-73.0); PLATELET COUNT AUTOMATED 230 10*3/uL (130-400); RED BLOOD COUNT 4.85 10*6/uL (4.10-5.10); RED CELL DISTRI WIDTH 15.2 % (0-14.5); WHITE BLOOD COUNT 12.7 10*3/uL (4.8-10.8)
[2019-11-10 17:01] LABS: ALBUMIN 3.5 gm/dl (3.1-4.5); ALKALINE PHOSPHATASE 126 U/L (45-117); BUN 11 mg/dl (7-24); CHLORIDE 113 mmol/L (98-107); CREATININE 0.85 mg/dL (0.55-1.02); LIPASE 83 U/L (73-393); POTASSIUM 3.9 mmol/L (3.5-5.1); SGOT/AST 16 IU/L (3-35); SGPT/ALT 19 U/L (12-78); SODIUM 139 mmol/L (136-145); TOTAL PROTEIN 7.6 gm/dL (6.4-8.2)
[2019-11-10 17:27] LABS: BILIRUBIN NEGATIVE (NEGATIVE); BLOOD NEGATIVE (NEGATIVE); CLARITY SL CLOUDY (CLEAR); COLOR YELLOW (YELLOW); GLUCOSE NEGATIVE (NEGATIVE); KETONE NEGATIVE (NEGATIVE); LEUKO ESTERASE TRACE (NEGATIVE); NITRITE NEGATIVE (NEGATIVE); SPECIFIC GRAVITY 1.015 (1.005-1.030); UROBILINOGEN 0.2 E.U./dl (0.2-1.0)
[2019-11-10 17:31] LABS: BACTERIA 1+; CALCIUM OXALATE CRYSTALS 3+
[2019-11-10] MEDS ORDERED: MACROBID100 M1 PO (17:36)
== END 2019-11-10 17:44 | disposition home or self-care (01) ==
LOC: ED 15:41
PROVIDERS: Nurse Practitioner Family
DX: N39.0 Urinary tract infection, site not specified (principal); F41.9 Anxiety disorder, unspecified; J45.909 Unspecified asthma, uncomplicated; K21.9 Gastro-esophageal reflux disease without esophagitis; E03.9 Hypothyroidism, unspecified; F32.9 Major depressive disorder, single episode, unspecified; Z88.0 Allergy status to penicillin; Z88.2 Allergy status to sulfonamides; Z91.040 Latex allergy status; Z79.899 Other long term (current) drug therapy; Z79.2 Long term (current) use of antibiotics

== ENCOUNTER 2019-12-03 18:28 | Emergency (ER) | payer MEDICARE ==
[~2019-12-03] VITALS: Ht 165.1 cm; Wt 81.6 kg
[2019-12-03 18:37] VITALS: BP 142/80
[2019-12-03 19:00] LABS: BILIRUBIN NEGATIVE (NEGATIVE); BLOOD NEGATIVE (NEGATIVE); CLARITY CLOUDY (CLEAR); COLOR YELLOW (YELLOW); GLUCOSE NEGATIVE (NEGATIVE); KETONE NEGATIVE (NEGATIVE); LEUKO ESTERASE TRACE (NEGATIVE); NITRITE NEGATIVE (NEGATIVE); SPECIFIC GRAVITY 1.015 (1.005-1.030); UROBILINOGEN 0.2 E.U./dl (0.2-1.0)
[2019-12-03 19:13] LABS: BACTERIA 1+; EPITHELIAL CELLS 21-30
[2019-12-03 19:35] LABS: BASO % 0.4 % (0.0-1.0); EOS # 0.1 10*3/uL (0.0-0.4); EOS % 0.7 % (1.0-4.0); HEMATOCRIT 41.9 % (37.0-47.0); LYMPH % 26.6 % (27.0-41.0); MEAN CELL VOLUME 85.2 fl (81.0-99.0); MEAN CORPUSCULAR HGB 26.4 pg (27.0-31.0); MEAN PLATELET VOLUME 9.5 fl (9.6-12.3); MONO # 0.6 10*3/uL (0.1-1.0); NEUT # 4.9 10*3/uL (2.3-7.9); NEUT % 64.2 % (47.0-73.0); PLATELET COUNT AUTOMATED 240 10*3/uL (130-400); RED BLOOD COUNT 4.92 10*6/uL (4.10-5.10); RED CELL DISTRI WIDTH 15.8 % (0-14.5); WHITE BLOOD COUNT 7.6 10*3/uL (4.8-10.8)
[2019-12-03 19:52] LABS: ALBUMIN 3.7 gm/dl (3.1-4.5); ALKALINE PHOSPHATASE 114 U/L (45-117); BUN 8 mg/dl (7-24); CHLORIDE 111 mmol/L (98-107); CREATININE 0.89 mg/dL (0.55-1.02); POTASSIUM 3.6 mmol/L (3.5-5.1); SGOT/AST 16 IU/L (3-35); SGPT/ALT 22 U/L (12-78); SODIUM 143 mmol/L (136-145); TOTAL PROTEIN 7.6 gm/dL (6.4-8.2)
[2019-12-03] MEDS ORDERED: CIPRO500 MG PO (20:02)
== END 2019-12-03 20:08 | disposition home or self-care (01) ==
LOC: ED 18:28
PROVIDERS: Physician Assistant
DX: N39.0 Urinary tract infection, site not specified (principal); R11.0 Nausea; F41.9 Anxiety disorder, unspecified; K21.9 Gastro-esophageal reflux disease without esophagitis; F32.9 Major depressive disorder, single episode, unspecified; J45.909 Unspecified asthma, uncomplicated; Z88.0 Allergy status to penicillin; Z88.2 Allergy status to sulfonamides; Z91.040 Latex allergy status; Z88.8 Allergy status to other drugs, medicaments and biological substances; Z79.899 Other long term (current) drug therapy; Z90.710 Acquired absence of both cervix and uterus

== ENCOUNTER 2019-12-29 20:53 | Emergency (ER) | payer MEDICARE ==
[~2019-12-29] VITALS: Ht 165.1 cm; Wt 81.6 kg
[2019-12-29 21:28] LABS: BASO % 0.6 % (0.0-1.0); EOS # 0.1 10*3/uL (0.0-0.4); EOS % 1.1 % (1.0-4.0); HEMATOCRIT 40.3 % (37.0-47.0); LYMPH # 2.8 10*3/uL (1.3-4.4); LYMPH % 44.7 % (27.0-41.0); MEAN CELL VOLUME 85.2 fl (81.0-99.0); MEAN CORPUSCULAR HGB 27.1 pg (27.0-31.0); MEAN CORPUSCULAR HGB CONC 31.8 g/dl (33.0-37.0); MEAN PLATELET VOLUME 10.1 fl (9.6-12.3); MONO # 0.6 10*3/uL (0.1-1.0); MONO % 9.2 % (3.0-9.0); NEUT # 2.8 10*3/uL (2.3-7.9); NEUT % 44.1 % (47.0-73.0); PLATELET COUNT AUTOMATED 133 10*3/uL (130-400); RED BLOOD COUNT 4.73 10*6/uL (4.10-5.10); RED CELL DISTRI WIDTH 15.4 % (0-14.5); WHITE BLOOD COUNT 6.3 10*3/uL (4.8-10.8)
[2019-12-29 21:36] LABS: ACT PARTIAL THROMBO TIME 22.5 SECONDS (20.0-32.1)
[2019-12-29 21:44] LABS: ALBUMIN 3.6 gm/dl (3.1-4.5); ALKALINE PHOSPHATASE 115 U/L (45-117); BUN 7 mg/dl (7-24); CHLORIDE 108 mmol/L (98-107); CREATININE 0.83 mg/dL (0.55-1.02); POTASSIUM 3.6 mmol/L (3.5-5.1); SGOT/AST 21 IU/L (3-35); SGPT/ALT 26 U/L (12-78); SODIUM 139 mmol/L (136-145); TOTAL PROTEIN 7.4 gm/dL (6.4-8.2)
[2019-12-29 21:47] LABS: TROPONIN I < 0.015 ng/ml (<0.045)
[2019-12-30 01:07] VITALS: BP 125/78
== END 2019-12-30 01:30 | disposition home or self-care (01) ==
LOC: ED 20:53
PROVIDERS: Emergency Medicine
DX: R07.9 Chest pain, unspecified (principal); E03.9 Hypothyroidism, unspecified; K21.9 Gastro-esophageal reflux disease without esophagitis; F31.9 Bipolar disorder, unspecified; Z88.0 Allergy status to penicillin; Z88.2 Allergy status to sulfonamides; Z91.040 Latex allergy status; Z79.899 Other long term (current) drug therapy; Z79.2 Long term (current) use of antibiotics

== ENCOUNTER 2020-03-26 10:11 | Emergency (ER) | payer MEDICARE ==
[~2020-03-26] VITALS: Ht 170.1 cm; Wt 86.2 kg
[2020-03-26 10:31] LABS: BASO % 0.5 % (0.0-1.0); EOS % 0.3 % (1.0-4.0); HEMATOCRIT 38.4 % (37.0-47.0); LYMPH # 1.5 10*3/uL (1.3-4.4); LYMPH % 24.7 % (27.0-41.0); MEAN CELL VOLUME 83.3 fl (81.0-99.0); MEAN CORPUSCULAR HGB 25.6 pg (27.0-31.0); MEAN CORPUSCULAR HGB CONC 30.7 g/dl (33.0-37.0); MEAN PLATELET VOLUME 9.7 fl (9.6-12.3); MONO # 0.7 10*3/uL (0.1-1.0); MONO % 12.2 % (3.0-9.0); NEUT # 3.8 10*3/uL (2.3-7.9); NEUT % 62.1 % (47.0-73.0); PLATELET COUNT AUTOMATED 213 10*3/uL (130-400); RED BLOOD COUNT 4.61 10*6/uL (4.10-5.10); WHITE BLOOD COUNT 6.1 10*3/uL (4.8-10.8)
[2020-03-26 10:43] LABS: ACT PARTIAL THROMBO TIME 25.8 SECONDS (20.0-32.1)
[2020-03-26 10:55] LABS: ALBUMIN 3.4 gm/dl (3.1-4.5); ALKALINE PHOSPHATASE 99 U/L (45-117); BUN 9 mg/dl (7-24); CHLORIDE 115 mmol/L (98-107); CREATININE 0.76 mg/dL (0.55-1.02); POTASSIUM 3.6 mmol/L (3.5-5.1); SGOT/AST 14 IU/L (3-35); SGPT/ALT 18 U/L (12-78); SODIUM 141 mmol/L (136-145); TOTAL PROTEIN 7.1 gm/dL (6.4-8.2)
[2020-03-26 10:57] LABS: TROPONIN I < 0.015 ng/ml (<0.045)
[2020-03-26 14:00] VITALS: BP 128/71
== END 2020-03-26 14:05 | disposition home or self-care (01) ==
LOC: ED 10:11
PROVIDERS: Emergency Medicine
DX: R07.89 Other chest pain (principal); Z88.0 Allergy status to penicillin; Z88.1 Allergy status to other antibiotic agents; Z91.040 Latex allergy status; Z88.8 Allergy status to other drugs, medicaments and biological substances; Z88.2 Allergy status to sulfonamides; Z79.899 Other long term (current) drug therapy

== ENCOUNTER → 2020-03-29 | Outpatient (CLI) | payer MEDICARE ==
[2020-03-29 13:25] LABS: FREE T4 1.08 ng/dl (0.76-1.46)
[2020-03-29 13:31] LABS: THYROID STIM HORMONE (HS) 1.56 uIU/ml (0.358-4.75)
== END | disposition home or self-care (01) ==
LOC: LAB 12:34
PROVIDERS: ATTEND Preventive Medicine Occupational Medicine
DX: E03.9 Hypothyroidism, unspecified (principal)

== ENCOUNTER 2020-04-22 19:55 | Emergency (ER) | payer MEDICARE ==
[~2020-04-22] VITALS: Wt 81.6 kg
[2020-04-22 21:06] VITALS: BP 134/71
== END 2020-04-22 22:40 | disposition home or self-care (01) ==
LOC: ED 19:55
DX: T50.905A Adverse effect of unspecified drugs, medicaments and biological substances, initial encounter (principal); F41.9 Anxiety disorder, unspecified; K21.9 Gastro-esophageal reflux disease without esophagitis; F32.9 Major depressive disorder, single episode, unspecified; J45.909 Unspecified asthma, uncomplicated; Z88.2 Allergy status to sulfonamides; Z88.0 Allergy status to penicillin; Z88.8 Allergy status to other drugs, medicaments and biological substances; Z91.040 Latex allergy status; Z79.899 Other long term (current) drug therapy; Y92.89 Other specified places as the place of occurrence of the external cause

== ENCOUNTER 2020-05-20 14:06 | Emergency (ER) | payer MEDICARE ==
[~2020-05-20] VITALS: Ht 165.1 cm; Wt 81.6 kg
[2020-05-20 14:15] VITALS: BP 116/71
[2020-05-20] MEDS ORDERED: 'CLONIDINE0.1 MG PO (14:44)
[2020-05-20] MEDS ORDERED: BENADRYL ALLERG25 M5 PO (14:58)
== END 2020-05-20 15:15 | disposition home or self-care (01) ==
LOC: ED 14:06
DX: T78.40XA Allergy, unspecified, initial encounter (principal); I10 Essential (primary) hypertension; Z88.0 Allergy status to penicillin; Z88.2 Allergy status to sulfonamides; Z91.040 Latex allergy status; Z79.899 Other long term (current) drug therapy; X58.XXXA Exposure to other specified factors, initial encounter

== ENCOUNTER 2020-06-04 16:03 | Emergency (ER) | payer MEDICARE ==
[~2020-06-04] VITALS: Ht 165.1 cm; Wt 81.6 kg
[~2020-06-04 16:03] MED LIST changes: +'CLONIDINE0.1 MG PO; +BENADRYL ALLERG25 M5 PO
[2020-06-04 16:13] VITALS: BP 141/86
== END 2020-06-04 19:47 | disposition home or self-care (01) ==
LOC: ED 16:03
DX: R19.7 Diarrhea, unspecified (principal); Z88.0 Allergy status to penicillin; Z88.2 Allergy status to sulfonamides; Z88.8 Allergy status to other drugs, medicaments and biological substances; Z91.040 Latex allergy status; Z79.899 Other long term (current) drug therapy

== ENCOUNTER → 2020-06-14 | Outpatient (CLI) | payer MEDICARE ==
[~2020-06-14] MED LIST changes: +DECADRON6 M1 PO
== END | disposition home or self-care (01) ==
LOC: RAD 07:04
PROVIDERS: ATTEND Nurse Practitioner Family
DX: K21.9 Gastro-esophageal reflux disease without esophagitis (principal); R19.7 Diarrhea, unspecified; R10.30 Lower abdominal pain, unspecified

== ENCOUNTER 2020-07-29 19:31 | Emergency (ER) | payer MEDICARE ==
[~2020-07-29] VITALS: Ht 165.1 cm; Wt 83.0 kg
[~2020-07-29 19:31] MED LIST changes: -DECADRON6 M1 PO
[2020-07-29 20:13] VITALS: BP 119/83
[2020-07-29 20:59] LABS: BASO % 0.5 % (0.0-1.0); EOS % 0.7 % (1.0-4.0); HEMATOCRIT 47.2 % (37.0-47.0); LYMPH # 1.8 10*3/uL (1.3-4.4); LYMPH % 31.2 % (27.0-41.0); MEAN CELL VOLUME 90.8 fl (81.0-99.0); MEAN CORPUSCULAR HGB 27.5 pg (27.0-31.0); MEAN CORPUSCULAR HGB CONC 30.3 g/dl (33.0-37.0); MEAN PLATELET VOLUME 9.9 fl (9.6-12.3); MONO % 16.8 % (3.0-9.0); NEUT % 50.6 % (47.0-73.0); PLATELET COUNT AUTOMATED 205 10*3/uL (130-400); RED CELL DISTRI WIDTH 15.5 % (0-14.5); WHITE BLOOD COUNT 5.9 10*3/uL (4.8-10.8)
[2020-07-29 21:14] LABS: ALBUMIN 3.7 gm/dl (3.1-4.5); ALKALINE PHOSPHATASE 151 U/L (45-117); BUN 14 mg/dl (7-24); CHLORIDE 112 mmol/L (98-107); CREATININE 1.01 mg/dL (0.55-1.02); POTASSIUM 3.8 mmol/L (3.5-5.1); SGOT/AST 39 IU/L (3-35); SGPT/ALT 51 U/L (12-78); SODIUM 141 mmol/L (136-145); TOTAL PROTEIN 7.7 gm/dL (6.4-8.2)
[2020-07-29] MEDS ORDERED: DECADRON6 M1 PO (21:33)
[2020-07-29] MEDS ORDERED: ZITHROMAX250 MG PO (21:33)
== END 2020-07-29 22:35 | disposition home or self-care (01) ==
LOC: ED 19:31
PROVIDERS: Internal Medicine
DX: U07.1 COVID-19 (principal); B34.9 Viral infection, unspecified; Z88.0 Allergy status to penicillin; Z88.8 Allergy status to other drugs, medicaments and biological substances; Z91.040 Latex allergy status; Z79.899 Other long term (current) drug therapy

== ENCOUNTER 2020-08-02 11:24 | Emergency (ER) | payer MEDICARE ==
[~2020-08-02 11:24] MED LIST changes: +DECADRON6 M1 PO
[2020-08-02 11:25] VITALS: BP 110/80
[2020-08-02 12:09] LABS: BASO % 0.3 % (0.0-1.0); LYMPH # 0.6 10*3/uL (1.3-4.4); LYMPH % 8.5 % (27.0-41.0); MEAN CORPUSCULAR HGB 27.6 pg (27.0-31.0); MEAN CORPUSCULAR HGB CONC 32.1 g/dl (33.0-37.0); MEAN PLATELET VOLUME 9.9 fl (9.6-12.3); MONO # 0.4 10*3/uL (0.1-1.0); MONO % 5.8 % (3.0-9.0); NEUT # 5.7 10*3/uL (2.3-7.9); NEUT % 85.3 % (47.0-73.0); PLATELET COUNT AUTOMATED 164 10*3/uL (130-400); RED CELL DISTRI WIDTH 15.2 % (0-14.5); WHITE BLOOD COUNT 6.7 10*3/uL (4.8-10.8)
[2020-08-02 12:18] LABS: ACT PARTIAL THROMBO TIME 26.5 SECONDS (20.0-32.1)
[2020-08-02 12:30] LABS: ALBUMIN 3.3 gm/dl (3.1-4.5); ALKALINE PHOSPHATASE 130 U/L (45-117); BUN 10 mg/dl (7-24); CHLORIDE 110 mmol/L (98-107); CREATININE 0.81 mg/dL (0.55-1.02); LIPASE 64 U/L (73-393); POTASSIUM 3.8 mmol/L (3.5-5.1); SGOT/AST 18 IU/L (3-35); SGPT/ALT 29 U/L (12-78); SODIUM 137 mmol/L (136-145); TOTAL PROTEIN 7.3 gm/dL (6.4-8.2)
[2020-08-02 12:33] LABS: BETA-HCG, QUANT < 1.0 mIU/mL (1-3); TROPONIN I < 0.015 ng/ml (<0.045)
[2020-08-02] MEDS ORDERED: ZOFRAN4 MG PO (16:10)
== END 2020-08-02 16:42 ==
LOC: ED 11:24
PROVIDERS: Emergency Medicine
DX: U07.1 COVID-19 (principal); Z88.0 Allergy status to penicillin; Z88.2 Allergy status to sulfonamides; Z88.1 Allergy status to other antibiotic agents; Z91.040 Latex allergy status; Z88.8 Allergy status to other drugs, medicaments and biological substances; Z79.899 Other long term (current) drug therapy

== ENCOUNTER 2020-12-18 15:36 | Emergency (ER) | payer MEDICARE ==
[~2020-12-18] VITALS: Ht 165.1 cm; Wt 88.5 kg
[2020-12-18 15:39] VITALS: BP 141/81
[2020-12-18 16:04] LABS: BASO % 0.3 % (0.0-1.0); EOS % 0.4 % (1.0-4.0); HEMATOCRIT 45.2 % (37.0-47.0); LYMPH # 2.1 10*3/uL (1.3-4.4); LYMPH % 21.9 % (27.0-41.0); MEAN CELL VOLUME 91.5 fl (81.0-99.0); MEAN CORPUSCULAR HGB 28.9 pg (27.0-31.0); MEAN CORPUSCULAR HGB CONC 31.6 g/dl (33.0-37.0); MEAN PLATELET VOLUME 9.1 fl (9.6-12.3); MONO # 0.8 10*3/uL (0.1-1.0); MONO % 8.4 % (3.0-9.0); NEUT # 6.6 10*3/uL (2.3-7.9); NEUT % 68.6 % (47.0-73.0); PLATELET COUNT AUTOMATED 278 10*3/uL (130-400); RED BLOOD COUNT 4.94 10*6/uL (4.10-5.10); RED CELL DISTRI WIDTH 14.5 % (0-14.5); WHITE BLOOD COUNT 9.6 10*3/uL (4.8-10.8)
[2020-12-18 16:18] LABS: ALBUMIN 3.6 gm/dl (3.1-4.5); CREATININE 1.65 mg/dL (0.55-1.02); POTASSIUM 4.1 mmol/L (3.5-5.1)
[2020-12-18 17:03] LABS: BILIRUBIN Negative (Negative); BLOOD Negative (Negative); CLARITY Cloudy (Clear); COLOR Yellow (Yellow); GLUCOSE Negative (Negative); KETONE Negative (Negative); LEUKO ESTERASE Trace (Negative); NITRITE Negative (Negative); PH 6.5 (4.5-8.0); SPECIFIC GRAVITY 1.025 (1.001-1.030)
[2020-12-18 17:14] LABS: BACTERIA 3+; EPITHELIAL CELLS TNTC; WBC 0-2 wbc/hpf (0-5); YEAST 1+
== END 2020-12-18 19:58 | disposition home or self-care (01) ==
LOC: ED 15:36
PROVIDERS: Student in an Organized Health Care Education/Training Program
DX: N17.0 Acute kidney failure with tubular necrosis (principal); R19.7 Diarrhea, unspecified; K58.9 Irritable bowel syndrome, unspecified; Z98.890 Other specified postprocedural states; Z79.899 Other long term (current) drug therapy; Z88.0 Allergy status to penicillin; Z88.2 Allergy status to sulfonamides; Z88.1 Allergy status to other antibiotic agents; Z91.040 Latex allergy status; Z88.8 Allergy status to other drugs, medicaments and biological substances

== ENCOUNTER 2020-12-20 10:46 | Emergency (ER) | payer MEDICARE ==
[~2020-12-20] VITALS: Ht 165.1 cm; Wt 88.5 kg
[2020-12-20 11:00] VITALS: BP 144/99
[2020-12-20 12:18] LABS: BASO % 0.3 % (0.0-1.0); EOS % 0.2 % (1.0-4.0); HEMATOCRIT 46.4 % (37.0-47.0); LYMPH # 1.6 10*3/uL (1.3-4.4); LYMPH % 16.4 % (27.0-41.0); MEAN CELL VOLUME 90.8 fl (81.0-99.0); MEAN CORPUSCULAR HGB 29.7 pg (27.0-31.0); MEAN CORPUSCULAR HGB CONC 32.8 g/dl (33.0-37.0); MEAN PLATELET VOLUME 9.6 fl (9.6-12.3); MONO # 0.7 10*3/uL (0.1-1.0); MONO % 7.2 % (3.0-9.0); NEUT # 7.4 10*3/uL (2.3-7.9); NEUT % 75.6 % (47.0-73.0); PLATELET COUNT AUTOMATED 282 10*3/uL (130-400); RED BLOOD COUNT 5.11 10*6/uL (4.10-5.10); RED CELL DISTRI WIDTH 14.6 % (0-14.5); WHITE BLOOD COUNT 9.7 10*3/uL (4.8-10.8)
[2020-12-20 12:41] LABS: ALBUMIN 3.5 gm/dl (3.1-4.5); ALKALINE PHOSPHATASE 167 U/L (45-117); BUN 10 mg/dl (7-24); CHLORIDE 109 mmol/L (98-107); CREATININE 0.81 mg/dL (0.55-1.02); LIPASE 95 U/L (73-393); POTASSIUM 4.8 mmol/L (3.5-5.1); SGOT/AST 28 IU/L (3-35); SGPT/ALT 22 U/L (12-78); SODIUM 138 mmol/L (136-145); TOTAL PROTEIN 8.2 gm/dL (6.4-8.2)
[2020-12-20 13:43] LABS: BILIRUBIN Negative (Negative); BLOOD Negative (Negative); CLARITY Cloudy (Clear); COLOR Yellow (Yellow); GLUCOSE Negative (Negative); KETONE Trace (Negative); LEUKO ESTERASE Negative (Negative); NITRITE Negative (Negative); SPECIFIC GRAVITY 1.025 (1.001-1.030)
[2020-12-20 13:52] LABS: BACTERIA 2+; EPITHELIAL CELLS TNTC
[2020-12-20] MEDS ORDERED: ZOFRAN4 MG PO (14:44)
== END 2020-12-20 14:50 | disposition home or self-care (01) ==
LOC: ED 10:46
PROVIDERS: Physician Assistant
DX: K52.9 Noninfective gastroenteritis and colitis, unspecified (principal); Z88.0 Allergy status to penicillin; Z88.2 Allergy status to sulfonamides; Z91.040 Latex allergy status; Z79.899 Other long term (current) drug therapy; Z98.890 Other specified postprocedural states; Z90.711 Acquired absence of uterus with remaining cervical stump

== ENCOUNTER → 2020-12-28 | Outpatient (CLI) | payer MEDICARE | END | disposition home or self-care (01) | LOC: LAB 06:54 | PROVIDERS: ATTEND Preventive Medicine Occupational Medicine | DX: K58.9 Irritable bowel syndrome, unspecified (principal) ==

== ENCOUNTER → 2021-03-13 | Outpatient (CLI) | payer MEDICARE | END | disposition home or self-care (01) | LOC: MAMMO 07:55 | PROVIDERS: ATTEND Preventive Medicine Occupational Medicine | DX: Z12.31 Encounter for screening mammogram for malignant neoplasm of breast (principal) ==

== ENCOUNTER 2021-06-15 14:12 | Emergency (ER) | payer MEDICARE ==
[~2021-06-15] VITALS: Ht 165.1 cm; Wt 99.8 kg
[2021-06-15 14:42] LABS: BASO % 0.3 % (0.0-1.0); EOS # 0.4 10*3/uL (0.0-0.4); EOS % 3.9 % (1.0-4.0); HEMATOCRIT 40.8 % (37.0-47.0); LYMPH # 2.3 10*3/uL (1.3-4.4); LYMPH % 24.4 % (27.0-41.0); MEAN CELL VOLUME 90.5 fl (81.0-99.0); MEAN CORPUSCULAR HGB 30.4 pg (27.0-31.0); MEAN CORPUSCULAR HGB CONC 33.6 g/dl (33.0-37.0); MEAN PLATELET VOLUME 8.9 fl (9.6-12.3); MONO # 0.6 10*3/uL (0.1-1.0); MONO % 5.9 % (3.0-9.0); NEUT # 6.2 10*3/uL (2.3-7.9); NEUT % 64.9 % (47.0-73.0); PLATELET COUNT AUTOMATED 250 10*3/uL (130-400); RED BLOOD COUNT 4.51 10*6/uL (4.10-5.10); RED CELL DISTRI WIDTH 12.2 % (0-14.5); WHITE BLOOD COUNT 9.5 10*3/uL (4.8-10.8)
[2021-06-15 14:55] LABS: ACT PARTIAL THROMBO TIME 25.7 SECONDS (20.0-32.1)
[2021-06-15 16:11] LABS: ALBUMIN 3.2 gm/dl (3.1-4.5); ALKALINE PHOSPHATASE 123 U/L (45-117); BUN 7 mg/dl (7-24); CHLORIDE 107 mmol/L (98-107); CREATININE 0.76 mg/dL (0.55-1.02); POTASSIUM 3.7 mmol/L (3.5-5.1); SGOT/AST 18 IU/L (3-35); SGPT/ALT 24 U/L (12-78); SODIUM 139 mmol/L (136-145); TOTAL PROTEIN 7.3 gm/dL (6.4-8.2)
[2021-06-15 16:13] LABS: TROPONIN I < 0.015 ng/ml (<0.045)
[2021-06-15 16:19] VITALS: BP 143/116
== END 2021-06-15 16:51 | disposition home or self-care (01) ==
LOC: ED 14:12
PROVIDERS: Emergency Medicine
DX: R07.9 Chest pain, unspecified (principal); R11.0 Nausea; Z88.0 Allergy status to penicillin; Z88.2 Allergy status to sulfonamides; Z88.1 Allergy status to other antibiotic agents; Z88.8 Allergy status to other drugs, medicaments and biological substances; Z79.899 Other long term (current) drug therapy

== ENCOUNTER 2021-07-07 17:30 | Emergency (ER) | payer MEDICARE ==
[~2021-07-07] VITALS: Ht 165.1 cm; Wt 113.4 kg
[2021-07-07 17:35] VITALS: BP 129/60
[2021-07-07 17:59] LABS: BASO % 0.2 % (0.0-1.0); EOS # 0.1 10*3/uL (0.0-0.4); EOS % 0.5 % (1.0-4.0); HEMATOCRIT 45.6 % (37.0-47.0); LYMPH # 2.4 10*3/uL (1.3-4.4); LYMPH % 17.7 % (27.0-41.0); MEAN CELL VOLUME 92.1 fl (81.0-99.0); MEAN CORPUSCULAR HGB 29.7 pg (27.0-31.0); MEAN CORPUSCULAR HGB CONC 32.2 g/dl (33.0-37.0); MEAN PLATELET VOLUME 9.4 fl (9.6-12.3); MONO # 0.8 10*3/uL (0.1-1.0); MONO % 5.8 % (3.0-9.0); NEUT % 75.4 % (47.0-73.0); PLATELET COUNT AUTOMATED 232 10*3/uL (130-400); RED BLOOD COUNT 4.95 10*6/uL (4.10-5.10); RED CELL DISTRI WIDTH 13.1 % (0-14.5); WHITE BLOOD COUNT 13.3 10*3/uL (4.8-10.8)
[2021-07-07 18:16] LABS: ALBUMIN 3.4 gm/dl (3.1-4.5); ALKALINE PHOSPHATASE 140 U/L (45-117); BUN 8 mg/dl (7-24); CHLORIDE 106 mmol/L (98-107); CREATININE 0.83 mg/dL (0.55-1.02); LIPASE 35 U/L (73-393); POTASSIUM 3.8 mmol/L (3.5-5.1); SGOT/AST 15 IU/L (3-35); SGPT/ALT 30 U/L (12-78); SODIUM 140 mmol/L (136-145); TOTAL PROTEIN 7.8 gm/dL (6.4-8.2)
[2021-07-07] MEDS ORDERED: PHENERGAN25 M3 PO (18:51)
== END 2021-07-07 19:11 | disposition home or self-care (01) ==
LOC: ED 17:30
PROVIDERS: Emergency Medicine
DX: R11.2 Nausea with vomiting, unspecified (principal); R10.13 Epigastric pain; J45.909 Unspecified asthma, uncomplicated; K21.9 Gastro-esophageal reflux disease without esophagitis; I10 Essential (primary) hypertension; E03.9 Hypothyroidism, unspecified; Z88.0 Allergy status to penicillin; Z88.2 Allergy status to sulfonamides; Z91.040 Latex allergy status; Z88.8 Allergy status to other drugs, medicaments and biological substances; Z88.1 Allergy status to other antibiotic agents; Z79.899 Other long term (current) drug therapy

== ENCOUNTER 2021-09-16 15:24 | Emergency (ER) | payer MEDICARE ==
[2021-09-16 15:36] VITALS: BP 118/81
[2021-09-16] MEDS ORDERED: PREDNISONE10 MG PO (16:22)
== END 2021-09-16 16:23 | disposition home or self-care (01) ==
LOC: ED 15:24
DX: M77.11 Lateral epicondylitis, right elbow (principal); Z88.0 Allergy status to penicillin; Z88.2 Allergy status to sulfonamides; Z88.1 Allergy status to other antibiotic agents; Z91.040 Latex allergy status; Z88.8 Allergy status to other drugs, medicaments and biological substances; Z79.899 Other long term (current) drug therapy; Z98.890 Other specified postprocedural states; Z90.89 Acquired absence of other organs

== ENCOUNTER 2022-02-20 00:28 | Emergency (ER) | payer MEDICARE ==
[2022-02-20 00:36] VITALS: BP 126/55
[2022-02-20] MEDS ORDERED: Ondansetron4 MG PO (01:31)
== END 2022-02-20 01:35 | disposition home or self-care (01) ==
LOC: ED 00:28
DX: J06.9 Acute upper respiratory infection, unspecified (principal); Z20.822 Contact with and (suspected) exposure to COVID-19; R05.9 Cough, unspecified; Z90.89 Acquired absence of other organs; Z98.890 Other specified postprocedural states; Z79.899 Other long term (current) drug therapy; Z88.0 Allergy status to penicillin; Z88.2 Allergy status to sulfonamides; Z91.040 Latex allergy status

== ENCOUNTER → 2022-03-07 | Outpatient (CLI) | payer MEDICARE ==
[~2022-03-07] MED LIST changes: +Ondansetron4 MG PO
== END | disposition home or self-care (01) ==
LOC: RAD 08:34
PROVIDERS: ATTEND Nurse Practitioner Primary Care
DX: M17.12 Unilateral primary osteoarthritis, left knee (principal)

== ENCOUNTER 2022-03-16 04:06 | Emergency (ER) | payer MEDICARE ==
[2022-03-16 04:10] VITALS: BP 141/76
[2022-03-16] MEDS ORDERED: OXYCODONE-ACET1 EAC1 PO (04:30)
[2022-03-16] MEDS ORDERED: IBU800 M2 PO (04:30)
== END 2022-03-16 05:08 | disposition home or self-care (01) ==
LOC: ED 04:06
DX: S83.8X2A Sprain of other specified parts of left knee, initial encounter (principal); Z88.0 Allergy status to penicillin; Z88.2 Allergy status to sulfonamides; Z88.1 Allergy status to other antibiotic agents; Z91.040 Latex allergy status; Z88.8 Allergy status to other drugs, medicaments and biological substances; Z79.899 Other long term (current) drug therapy; Z90.89 Acquired absence of other organs; Z90.710 Acquired absence of both cervix and uterus; Z98.890 Other specified postprocedural states; X50.9XXA Other and unspecified overexertion or strenuous movements or postures, initial encounter; Y93.89 Activity, other specified; Y92.89 Other specified places as the place of occurrence of the external cause; Y99.8 Other external cause status

== ENCOUNTER 2022-03-26 20:11 | Emergency (ER) | payer OTHER ==
[~2022-03-26] VITALS: Ht 165.1 cm; Wt 106.6 kg
[~2022-03-26 20:11] MED LIST changes: +IBU800 M2 PO; +OXYCODONE-ACET1 EAC1 PO
[2022-03-26 21:03] VITALS: BP 139/88
== END 2022-03-27 00:59 | disposition left against medical advice (07) ==
LOC: ED 20:11
DX: R07.9 Chest pain, unspecified (principal); Z53.21 Procedure and treatment not carried out due to patient leaving prior to being seen by health care provider

== ENCOUNTER 2022-10-24 18:26 | Emergency (ER) | payer OTHER ==
[~2022-10-24] VITALS: Ht 165.1 cm; Wt 106.6 kg
[2022-10-24 18:30] VITALS: BP 145/55
[2022-10-24 19:06] LABS: BASO % 0.4 % (0.0-1.0); EOS # 0.1 10*3/uL (0.0-0.4); EOS % 1.2 % (1.0-4.0); HEMATOCRIT 44.7 % (37.0-47.0); LYMPH # 2.9 10*3/uL (1.3-4.4); LYMPH % 32.3 % (27.0-41.0); MEAN CORPUSCULAR HGB 29.4 pg (27.0-31.0); MEAN PLATELET VOLUME 9.1 fl (9.6-12.3); MONO # 0.9 10*3/uL (0.1-1.0); MONO % 10.1 % (3.0-9.0); NEUT # 5.1 10*3/uL (2.3-7.9); NEUT % 55.7 % (47.0-73.0); PLATELET COUNT AUTOMATED 252 10*3/uL (130-400); RED BLOOD COUNT 4.86 10*6/uL (4.10-5.10); RED CELL DISTRI WIDTH 13.7 % (0-14.5); WHITE BLOOD COUNT 9.1 10*3/uL (4.8-10.8)
[2022-10-24 19:19] LABS: ACT PARTIAL THROMBO TIME 26.3 SECONDS (20.0-32.1)
[2022-10-24 19:23] LABS: ALKALINE PHOSPHATASE 140 U/L (46-116); BUN 5 mg/dl (9-23); CHLORIDE 103 mmol/L (98-107); LIPASE 26 U/L (12-53); POTASSIUM 4.1 mmol/L (3.4-5.1); SGPT/ALT 23 U/L (10-49)
== END 2022-10-24 20:52 | disposition home or self-care (01) ==
LOC: ED 18:26
PROVIDERS: Emergency Medicine
DX: F41.9 Anxiety disorder, unspecified (principal); K21.9 Gastro-esophageal reflux disease without esophagitis; F32.A Depression, unspecified; J45.909 Unspecified asthma, uncomplicated; Z88.0 Allergy status to penicillin; Z88.2 Allergy status to sulfonamides; Z88.1 Allergy status to other antibiotic agents; Z91.040 Latex allergy status; Z88.8 Allergy status to other drugs, medicaments and biological substances; Z90.711 Acquired absence of uterus with remaining cervical stump; Z90.89 Acquired absence of other organs; Z98.890 Other specified postprocedural states

== ENCOUNTER 2022-11-12 09:02 | Emergency (ER) | payer OTHER ==
[~2022-11-12] VITALS: Ht 165.1 cm; Wt 107.9 kg
[2022-11-12 09:17] VITALS: BP 136/89
[2022-11-12] MEDS ORDERED: ATENOLOL25 MG PO (09:32)
[2022-11-12 10:17] LABS: BASO % 0.3 % (0.0-1.0); EOS % 0.1 % (1.0-4.0); HEMATOCRIT 44.8 % (37.0-47.0); LYMPH # 1.2 10*3/uL (1.3-4.4); LYMPH % 16.1 % (27.0-41.0); MEAN CELL VOLUME 89.8 fl (81.0-99.0); MEAN CORPUSCULAR HGB 30.1 pg (27.0-31.0); MEAN CORPUSCULAR HGB CONC 33.5 g/dl (33.0-37.0); MEAN PLATELET VOLUME 9.2 fl (9.6-12.3); MONO # 0.7 10*3/uL (0.1-1.0); MONO % 8.7 % (3.0-9.0); NEUT # 5.7 10*3/uL (2.3-7.9); NEUT % 74.4 % (47.0-73.0); PLATELET COUNT AUTOMATED 231 10*3/uL (130-400); RED BLOOD COUNT 4.99 10*6/uL (4.10-5.10); RED CELL DISTRI WIDTH 13.9 % (0-14.5); WHITE BLOOD COUNT 7.6 10*3/uL (4.8-10.8)
[2022-11-12 10:36] LABS: ALKALINE PHOSPHATASE 119 U/L (46-116); BUN 5 mg/dl (9-23); CHLORIDE 107 mmol/L (98-107); LIPASE 25 U/L (12-53); POTASSIUM 3.5 mmol/L (3.4-5.1); SGPT/ALT 8 U/L (10-49); TOTAL PROTEIN 6.7 gm/dL (6.0-8.0)
[2022-11-12 10:41] LABS: B-hCG (QUALITATIVE) NEGATIVE (NEGATIVE)
[2022-11-12 11:57] LABS: BILIRUBIN Negative (Negative); BLOOD Negative (Negative); CLARITY Cloudy (Clear); COLOR Yellow (Yellow); GLUCOSE Negative (Negative); KETONE 1+ (Negative); LEUKO ESTERASE Trace (Negative); NITRITE Positive (Negative); PH 5.5 (4.5-8.0); SPECIFIC GRAVITY >= 1.030 (1.001-1.030)
[2022-11-12 12:10] LABS: BACTERIA 3+; RBC 0-2 rbc/hpf (0-2)
[2022-11-12] MEDS ORDERED: PHENERGAN25 M3 PO (12:56)
[2022-11-12] MEDS ORDERED: DOXYCYCLINE HY100 M3 PO (12:56)
== END 2022-11-12 13:11 | disposition home or self-care (01) ==
LOC: ED 09:02
PROVIDERS: Family Medicine
DX: N39.0 Urinary tract infection, site not specified (principal); R19.7 Diarrhea, unspecified; Z88.0 Allergy status to penicillin; Z88.2 Allergy status to sulfonamides; Z88.1 Allergy status to other antibiotic agents; Z88.8 Allergy status to other drugs, medicaments and biological substances; Z79.899 Other long term (current) drug therapy; Z90.89 Acquired absence of other organs; Z90.710 Acquired absence of both cervix and uterus; Z98.890 Other specified postprocedural states

== ENCOUNTER → 2023-02-05 | Outpatient (CLI) | payer OTHER ==
[~2023-02-05] MED LIST changes: +ATENOLOL25 MG PO; +DOXYCYCLINE HY100 M3 PO
== END | disposition home or self-care (01) ==
LOC: US 00:20
PROVIDERS: ATTEND Urology
DX: R30.0 Dysuria (principal)

== ENCOUNTER → 2023-02-08 | Outpatient (CLI) | payer OTHER ==
[2023-02-08 07:38] LABS: BASO % 0.3 % (0.0-1.0); EOS # 0.1 10*3/uL (0.0-0.4); EOS % 0.7 % (1.0-4.0); HEMATOCRIT 44.6 % (37.0-47.0); LYMPH # 1.8 10*3/uL (1.3-4.4); LYMPH % 19.8 % (27.0-41.0); MEAN CELL VOLUME 89.2 fl (81.0-99.0); MEAN CORPUSCULAR HGB 29.4 pg (27.0-31.0); MEAN PLATELET VOLUME 9.3 fl (9.6-12.3); MONO # 0.8 10*3/uL (0.1-1.0); MONO % 9.1 % (3.0-9.0); NEUT # 6.3 10*3/uL (2.3-7.9); NEUT % 69.8 % (47.0-73.0); PLATELET COUNT AUTOMATED 284 10*3/uL (130-400); RED CELL DISTRI WIDTH 13.2 % (0-14.5)
[2023-02-08 08:02] LABS: ALKALINE PHOSPHATASE 145 U/L (46-116); BUN 9 mg/dl (9-23); CHLORIDE 108 mmol/L (98-107); POTASSIUM 3.8 mmol/L (3.4-5.1); SGPT/ALT 11 U/L (10-49); TOTAL PROTEIN 7.3 gm/dL (6.0-8.0)
[2023-02-08 08:06] LABS: BILIRUBIN Negative (Negative); BLOOD Negative (Negative); CLARITY Cloudy (Clear); COLOR Yellow (Yellow); GLUCOSE Negative (Negative); KETONE Negative (Negative); LEUKO ESTERASE Negative (Negative); NITRITE Positive (Negative); PH 5.5 (4.5-8.0); SPECIFIC GRAVITY >= 1.030 (1.001-1.030)
[2023-02-08 08:53] LABS: BACTERIA 3+; CALCIUM OXALATE CRYSTALS 3+
[2023-02-08 08:55] LABS: WBC 0-2 wbc/hpf (0-5)
== END | disposition home or self-care (01) ==
LOC: LAB 07:02
PROVIDERS: ATTEND Urology
DX: R30.0 Dysuria (principal)

== ENCOUNTER → 2023-03-19 | Outpatient (CLI) | payer OTHER | END | disposition home or self-care (01) | LOC: CT 11:00 | PROVIDERS: ATTEND Urology | DX: K57.32 Diverticulitis of large intestine without perforation or abscess without bleeding (principal); N20.0 Calculus of kidney; K44.9 Diaphragmatic hernia without obstruction or gangrene; Z90.710 Acquired absence of both cervix and uterus ==

== ENCOUNTER → 2023-04-09 | Outpatient (CLI) | payer OTHER | END | disposition home or self-care (01) | LOC: MAMMO 13:19 | PROVIDERS: ATTEND Nurse Practitioner | DX: Z12.31 Encounter for screening mammogram for malignant neoplasm of breast (principal) ==

== ENCOUNTER 2023-07-03 21:17 | Emergency (ER) | payer OTHER ==
[~2023-07-03] VITALS: Ht 162.5 cm; Wt 104.3 kg
[2023-07-03 21:27] VITALS: BP 127/74
[2023-07-03 21:41] LABS: BASO % 0.4 % (0.0-1.0); EOS # 0.1 10*3/uL (0.0-0.4); EOS % 0.8 % (1.0-4.0); HEMATOCRIT 42.5 % (37.0-47.0); LYMPH # 2.3 10*3/uL (1.3-4.4); LYMPH % 30.3 % (27.0-41.0); MEAN CELL VOLUME 89.1 fl (81.0-99.0); MEAN CORPUSCULAR HGB 29.4 pg (27.0-31.0); MEAN CORPUSCULAR HGB CONC 32.9 g/dl (33.0-37.0); MEAN PLATELET VOLUME 9.2 fl (9.6-12.3); MONO # 0.8 10*3/uL (0.1-1.0); MONO % 10.6 % (3.0-9.0); NEUT # 4.5 10*3/uL (2.3-7.9); NEUT % 57.5 % (47.0-73.0); PLATELET COUNT AUTOMATED 231 10*3/uL (130-400); RED BLOOD COUNT 4.77 10*6/uL (4.10-5.10); RED CELL DISTRI WIDTH 13.1 % (0-14.5); WHITE BLOOD COUNT 7.7 10*3/uL (4.8-10.8)
[2023-07-03 21:58] LABS: ALKALINE PHOSPHATASE 153 U/L (46-116); BUN 6 mg/dl (9-23); CHLORIDE 106 mmol/L (98-107); POTASSIUM 4.1 mmol/L (3.4-5.1); SGPT/ALT 13 U/L (5-49); TOTAL PROTEIN 7.2 gm/dL (6.0-8.0)
[2023-07-03] MEDS ORDERED: ONDANSETRON4 MG SL (23:11)
== END 2023-07-03 23:30 | disposition home or self-care (01) ==
LOC: ED 21:17
PROVIDERS: Nurse Practitioner
DX: K52.9 Noninfective gastroenteritis and colitis, unspecified (principal); F41.9 Anxiety disorder, unspecified; K21.9 Gastro-esophageal reflux disease without esophagitis; F32.A Depression, unspecified; J45.909 Unspecified asthma, uncomplicated; Z88.0 Allergy status to penicillin; Z88.2 Allergy status to sulfonamides; Z88.1 Allergy status to other antibiotic agents; Z91.040 Latex allergy status; Z90.711 Acquired absence of uterus with remaining cervical stump; Z90.89 Acquired absence of other organs; Z98.890 Other specified postprocedural states; Z20.822 Contact with and (suspected) exposure to COVID-19

== ENCOUNTER 2023-07-08 20:40 | Emergency (ER) | payer OTHER ==
[~2023-07-08] VITALS: Ht 165.1 cm; Wt 81.6 kg
[~2023-07-08 20:40] MED LIST changes: +ONDANSETRON4 MG SL
[2023-07-08 20:58] LABS: BASO % 0.4 % (0.0-1.0); EOS # 0.1 10*3/uL (0.0-0.4); EOS % 1.1 % (1.0-4.0); LYMPH # 2.3 10*3/uL (1.3-4.4); LYMPH % 27.5 % (27.0-41.0); MEAN CELL VOLUME 90.7 fl (81.0-99.0); MEAN CORPUSCULAR HGB 29.4 pg (27.0-31.0); MEAN CORPUSCULAR HGB CONC 32.4 g/dl (33.0-37.0); MONO # 0.8 10*3/uL (0.1-1.0); MONO % 9.9 % (3.0-9.0); NEUT # 5.1 10*3/uL (2.3-7.9); NEUT % 60.6 % (47.0-73.0); PLATELET COUNT AUTOMATED 250 10*3/uL (130-400); RED BLOOD COUNT 4.96 10*6/uL (4.10-5.10); RED CELL DISTRI WIDTH 13.4 % (0-14.5); WHITE BLOOD COUNT 8.5 10*3/uL (4.8-10.8)
[2023-07-08 21:03] VITALS: BP 125/54
[2023-07-08 21:20] LABS: ALKALINE PHOSPHATASE 146 U/L (46-116); BUN 9 mg/dl (9-23); CHLORIDE 106 mmol/L (98-107); POTASSIUM 4.1 mmol/L (3.4-5.1); SGPT/ALT 14 U/L (5-49); TOTAL PROTEIN 7.6 gm/dL (6.0-8.0)
[2023-07-08] MEDS ORDERED: COMPAZINE5 M3 PO (21:31)
== END 2023-07-08 21:45 | disposition home or self-care (01) ==
LOC: ED 20:40
PROVIDERS: Internal Medicine
DX: K52.9 Noninfective gastroenteritis and colitis, unspecified (principal); R11.2 Nausea with vomiting, unspecified; F41.9 Anxiety disorder, unspecified; K21.9 Gastro-esophageal reflux disease without esophagitis; F32.A Depression, unspecified; Z88.0 Allergy status to penicillin; Z88.2 Allergy status to sulfonamides; Z88.1 Allergy status to other antibiotic agents; Z91.040 Latex allergy status; Z88.8 Allergy status to other drugs, medicaments and biological substances; Z98.890 Other specified postprocedural states; Z90.711 Acquired absence of uterus with remaining cervical stump; Z90.89 Acquired absence of other organs

== ENCOUNTER 2023-08-12 07:01 | Emergency (ER) | payer OTHER ==
[~2023-08-12] VITALS: Ht 165.1 cm; Wt 106.6 kg
[~2023-08-12 07:01] MED LIST changes: +ASPIRIN ADULT L81 M1 PO; +BUSPAR5 MG PO; +COMPAZINE5 M3 PO; +DICYCLOMINE HYD20 MG PO; +IMDUR SA30 MG PO; +SYNTHROID137 MCG PO; +VRAYLAR6 MG PO
[2023-08-12 07:27] VITALS: BP 151/68
[2023-08-12 08:07] LABS: BASO % 0.2 % (0.0-1.0); EOS % 0.4 % (1.0-4.0); HEMATOCRIT 43.2 % (37.0-47.0); LYMPH # 0.9 10*3/uL (1.3-4.4); LYMPH % 8.6 % (27.0-41.0); MEAN CELL VOLUME 90.2 fl (81.0-99.0); MEAN CORPUSCULAR HGB 28.6 pg (27.0-31.0); MEAN CORPUSCULAR HGB CONC 31.7 g/dl (33.0-37.0); MONO # 0.7 10*3/uL (0.1-1.0); NEUT # 9.3 10*3/uL (2.3-7.9); NEUT % 84.4 % (47.0-73.0); PLATELET COUNT AUTOMATED 236 10*3/uL (130-400); RED BLOOD COUNT 4.79 10*6/uL (4.10-5.10)
[2023-08-12 08:18] LABS: ACT PARTIAL THROMBO TIME 21.4 SECONDS (20.0-32.1)
[2023-08-12 08:23] LABS: ALKALINE PHOSPHATASE 158 U/L (46-116); CHLORIDE 109 mmol/L (98-107); LIPASE 28 U/L (12-53); POTASSIUM 3.7 mmol/L (3.4-5.1); SGPT/ALT 11 U/L (5-49)
[2023-08-12 08:25] LABS: BUN < 5 mg/dl (9-23)
[2023-08-12] MEDS ORDERED: VIBRAMYCIN100 MG PO (09:23)
[2023-08-12] MEDS ORDERED: PREDNISONE20 M1 PO (09:23)
== END 2023-08-12 09:29 | disposition home or self-care (01) ==
LOC: ED 07:01
PROVIDERS: Internal Medicine
DX: J18.9 Pneumonia, unspecified organism (principal); R11.2 Nausea with vomiting, unspecified; F41.9 Anxiety disorder, unspecified; K21.9 Gastro-esophageal reflux disease without esophagitis; F32.A Depression, unspecified; J45.909 Unspecified asthma, uncomplicated; R10.2 Pelvic and perineal pain; Z88.0 Allergy status to penicillin; Z88.2 Allergy status to sulfonamides; Z91.040 Latex allergy status; Z88.1 Allergy status to other antibiotic agents; Z88.8 Allergy status to other drugs, medicaments and biological substances; Z90.711 Acquired absence of uterus with remaining cervical stump; Z90.89 Acquired absence of other organs; Z98.890 Other specified postprocedural states; F17.210 Nicotine dependence, cigarettes, uncomplicated; Z20.822 Contact with and (suspected) exposure to COVID-19

== ENCOUNTER → 2023-11-05 | Outpatient (CLI) | payer OTHER | END | disposition home or self-care (01) | LOC: RAD 09:20 | PROVIDERS: ATTEND Nurse Practitioner Family | DX: R15.9 Full incontinence of feces (principal); Z98.890 Other specified postprocedural states ==

== ENCOUNTER 2024-01-27 23:03 | Emergency (ER) | payer OTHER ==
[~2024-01-27] VITALS: Ht 165.1 cm; Wt 108.4 kg
[2024-01-27 23:13] VITALS: BP 176/82
[2024-01-27 23:40] LABS: BILIRUBIN Negative (Negative); BLOOD Negative (Negative); CLARITY Clear (Clear); COLOR Yellow (Yellow); GLUCOSE Negative (Negative); KETONE Negative (Negative); LEUKO ESTERASE Negative (Negative); NITRITE Negative (Negative); SPECIFIC GRAVITY 1.015 (1.001-1.030)
[2024-01-27 23:48] LABS: EPITHELIAL CELLS 41-50
[2024-01-27 23:49] LABS: BACTERIA 1+
[2024-01-27] MEDS ORDERED: Ketorolac Tromethamine 60 MG/2 ML VIAL IM ONE (23:55)
[2024-01-27] MEDS ORDERED: METHOCARBAMOL 500 MG TAB PO ONE (23:55)
[2024-01-27] MEDS ORDERED: CLINDAMYCIN HCL 300 MG CAPSULE PO ONE (23:55)
[2024-01-27] MEDS ORDERED: CLINDAMYCIN HC300 MG PO (23:56)
[2024-01-27] MEDS ORDERED: NAPROXEN250 MG PO (23:56)
[2024-01-27] MEDS ORDERED: METHOCARBAMOL750 M1 PO (23:56)
== END 2024-01-28 00:09 | disposition home or self-care (01) ==
LOC: ED 23:03
PROVIDERS: Internal Medicine
DX: S39.012A Strain of muscle, fascia and tendon of lower back, initial encounter (principal); K02.9 Dental caries, unspecified; Z88.0 Allergy status to penicillin; Z88.2 Allergy status to sulfonamides; Z88.8 Allergy status to other drugs, medicaments and biological substances; Z88.1 Allergy status to other antibiotic agents; Z91.040 Latex allergy status; Z79.899 Other long term (current) drug therapy; Z79.82 Long term (current) use of aspirin; Z98.84 Bariatric surgery status; Z90.711 Acquired absence of uterus with remaining cervical stump; Z90.89 Acquired absence of other organs; X58.XXXA Exposure to other specified factors, initial encounter; Y93.89 Activity, other specified; Y92.89 Other specified places as the place of occurrence of the external cause; Y99.8 Other external cause status

== ENCOUNTER 2024-02-14 14:28 | Emergency (ER) | payer OTHER ==
[~2024-02-14] VITALS: Ht 165.1 cm; Wt 108.9 kg
[~2024-02-14 14:28] MED LIST changes: +CLINDAMYCIN HC300 MG PO; +METHOCARBAMOL750 M1 PO; +NAPROXEN250 MG PO
[2024-02-14 14:55] VITALS: BP 127/97
[2024-02-14] MEDS ORDERED: Atropine Sulfate/Diphenoxyla 1 TAB TAB PO ONE (15:15)
[2024-02-14] MEDS ORDERED: SODIUM CHLORIDE 0.9% 1,000 ML IV ONE (15:15)
[2024-02-14 15:39] LABS: BASO % 0.3 % (0.0-1.0); EOS # 0.1 10*3/uL (0.0-0.4); EOS % 0.5 % (1.0-4.0); HEMATOCRIT 45.1 % (37.0-47.0); LYMPH # 1.7 10*3/uL (1.3-4.4); MEAN CELL VOLUME 91.1 fl (81.0-99.0); MEAN CORPUSCULAR HGB 28.9 pg (27.0-31.0); MEAN CORPUSCULAR HGB CONC 31.7 g/dl (33.0-37.0); MEAN PLATELET VOLUME 9.6 fl (9.6-12.3); MONO # 1.1 10*3/uL (0.1-1.0); MONO % 9.7 % (3.0-9.0); NEUT # 8.1 10*3/uL (2.3-7.9); NEUT % 74.1 % (47.0-73.0); PLATELET COUNT AUTOMATED 217 10*3/uL (130-400); RED BLOOD COUNT 4.95 10*6/uL (4.10-5.10); RED CELL DISTRI WIDTH 13.9 % (0-14.5)
[2024-02-14 15:59] LABS: ALKALINE PHOSPHATASE 141 U/L (46-116); CHLORIDE 106 mmol/L (98-107); POTASSIUM 4.1 mmol/L (3.4-5.1); SGPT/ALT 16 U/L (5-49); TOTAL PROTEIN 7.3 gm/dL (6.0-8.0)
[2024-02-14 16:00] LABS: BUN < 5 mg/dl (9-23)
== END 2024-02-14 16:26 | disposition home or self-care (01) ==
LOC: ED 14:28
PROVIDERS: Emergency Medicine
DX: R19.7 Diarrhea, unspecified (principal); R11.0 Nausea; R10.30 Lower abdominal pain, unspecified; F41.9 Anxiety disorder, unspecified; K21.9 Gastro-esophageal reflux disease without esophagitis; F32.A Depression, unspecified; J45.909 Unspecified asthma, uncomplicated; E16.2 Hypoglycemia, unspecified; Z88.0 Allergy status to penicillin; Z88.2 Allergy status to sulfonamides; Z91.040 Latex allergy status; Z88.1 Allergy status to other antibiotic agents; Z88.8 Allergy status to other drugs, medicaments and biological substances; Z98.890 Other specified postprocedural states; Z90.711 Acquired absence of uterus with remaining cervical stump; Z90.89 Acquired absence of other organs

== ENCOUNTER 2024-03-27 16:14 | Emergency (ER) | payer OTHER ==
[~2024-03-27] VITALS: Ht 165.1 cm; Wt 111.1 kg
[2024-03-27] MEDS ORDERED: Prochlorperazine Edisylate 10 MG/2 ML VIAL IV ONE (17:35)
[2024-03-27] MEDS ORDERED: SODIUM CHLORIDE 0.9% 1,000 ML IV ONE (17:35)
[2024-03-27] MEDS ORDERED: diphenhydrAMINE hydrochloride 50 MG/ML VIAL IV ONE (17:35)
[2024-03-27] MEDS ORDERED: Ketorolac Tromethamine 15 MG/ML VIAL IV ONE (17:35)
[2024-03-27 17:57] LABS: BASO # 0.1 10*3/uL (0.0-0.1); BASO % 0.6 % (0.0-1.0); EOS # 0.3 10*3/uL (0.0-0.4); EOS % 3.3 % (1.0-4.0); HEMATOCRIT 42.7 % (37.0-47.0); LYMPH # 2.6 10*3/uL (1.3-4.4); LYMPH % 27.5 % (27.0-41.0); MEAN CELL VOLUME 88.6 fl (81.0-99.0); MEAN CORPUSCULAR HGB CONC 31.6 g/dl (33.0-37.0); MEAN PLATELET VOLUME 9.1 fl (9.6-12.3); MONO # 0.9 10*3/uL (0.1-1.0); MONO % 9.3 % (3.0-9.0); NEUT # 5.5 10*3/uL (2.3-7.9); PLATELET COUNT AUTOMATED 248 10*3/uL (130-400); RED BLOOD COUNT 4.82 10*6/uL (4.10-5.10); RED CELL DISTRI WIDTH 13.8 % (0-14.5); WHITE BLOOD COUNT 9.3 10*3/uL (4.8-10.8)
[2024-03-27 18:13] LABS: ALKALINE PHOSPHATASE 140 U/L (46-116); BUN 6 mg/dl (9-23); CHLORIDE 107 mmol/L (98-107); POTASSIUM 3.7 mmol/L (3.4-5.1); SGPT/ALT 13 U/L (5-49); TOTAL PROTEIN 7.4 gm/dL (6.0-8.0)
[2024-03-27 18:22] VITALS: BP 151/68
[2024-03-27] MEDS ORDERED: Ondansetron4 MG PO (18:28)
[2024-03-27] MEDS ORDERED: ANTI-DIARRHEAL2 MG PO (18:28)
== END 2024-03-27 18:49 | disposition home or self-care (01) ==
LOC: ED 16:14
PROVIDERS: Emergency Medicine
DX: R11.2 Nausea with vomiting, unspecified (principal); R19.7 Diarrhea, unspecified; F31.9 Bipolar disorder, unspecified; F41.9 Anxiety disorder, unspecified; K21.9 Gastro-esophageal reflux disease without esophagitis; J45.909 Unspecified asthma, uncomplicated; Z88.0 Allergy status to penicillin; Z88.2 Allergy status to sulfonamides; Z88.1 Allergy status to other antibiotic agents; Z91.040 Latex allergy status; Z88.8 Allergy status to other drugs, medicaments and biological substances; Z98.890 Other specified postprocedural states; Z90.711 Acquired absence of uterus with remaining cervical stump; Z90.89 Acquired absence of other organs

== ENCOUNTER → 2024-05-26 | Outpatient (CLI) | payer OTHER ==
[~2024-05-26] MED LIST changes: +ANTI-DIARRHEAL2 MG PO
== END | disposition home or self-care (01) ==
LOC: RAD 15:07
PROVIDERS: ATTEND Nurse Practitioner
DX: M51.87 Other intervertebral disc disorders, lumbosacral region (principal); M48.07 Spinal stenosis, lumbosacral region

== ENCOUNTER 2024-06-13 00:09 | Emergency (ER) | payer OTHER ==
[2024-06-13 00:28] VITALS: BP 127/50
[2024-06-13 01:13] LABS: BASO % 0.2 % (0.0-1.0); EOS # 0.1 10*3/uL (0.0-0.4); EOS % 0.5 % (1.0-4.0); HEMATOCRIT 40.3 % (37.0-47.0); MEAN CELL VOLUME 86.3 fl (81.0-99.0); MEAN CORPUSCULAR HGB 27.2 pg (27.0-31.0); MEAN CORPUSCULAR HGB CONC 31.5 g/dl (33.0-37.0); MEAN PLATELET VOLUME 9.1 fl (9.6-12.3); MONO # 1.1 10*3/uL (0.1-1.0); MONO % 9.9 % (3.0-9.0); NEUT # 8.6 10*3/uL (2.3-7.9); NEUT % 78.7 % (47.0-73.0); PLATELET COUNT AUTOMATED 243 10*3/uL (130-400); RED BLOOD COUNT 4.67 10*6/uL (4.10-5.10); RED CELL DISTRI WIDTH 13.4 % (0-14.5); WHITE BLOOD COUNT 10.9 10*3/uL (4.8-10.8)
[2024-06-13 01:31] LABS: BILIRUBIN Negative (Negative); BLOOD Negative (Negative); CLARITY Clear (Clear); COLOR Yellow (Yellow); GLUCOSE Negative (Negative); KETONE Negative (Negative); LEUKO ESTERASE Negative (Negative); NITRITE Negative (Negative); PH 6.5 (4.5-8.0); SPECIFIC GRAVITY 1.025 (1.001-1.030)
[2024-06-13 01:39] LABS: BUN 8 mg/dl (9-23); CHLORIDE 104 mmol/L (98-107)
[2024-06-13 02:16] LABS: RBC 0-2 rbc/hpf (0-2); WBC 0-2 wbc/hpf (0-5)
[2024-06-13] MEDS ORDERED: ZITHROMAX250 MG PO (02:57)
[2024-06-13] MEDS ORDERED: AZITHROMYCIN 250 MG TAB PO ONE (03:00)
== END 2024-06-13 03:07 | disposition home or self-care (01) ==
LOC: ED 00:09
PROVIDERS: Emergency Medicine
DX: J18.9 Pneumonia, unspecified organism (principal); R11.10 Vomiting, unspecified; E78.00 Pure hypercholesterolemia, unspecified; F41.9 Anxiety disorder, unspecified; J45.909 Unspecified asthma, uncomplicated; F31.9 Bipolar disorder, unspecified; I10 Essential (primary) hypertension; K21.9 Gastro-esophageal reflux disease without esophagitis; G43.909 Migraine, unspecified, not intractable, without status migrainosus; E03.9 Hypothyroidism, unspecified; Z88.0 Allergy status to penicillin; Z88.2 Allergy status to sulfonamides; Z88.1 Allergy status to other antibiotic agents; Z91.040 Latex allergy status; Z88.8 Allergy status to other drugs, medicaments and biological substances; Z98.890 Other specified postprocedural states; Z90.89 Acquired absence of other organs; Z90.711 Acquired absence of uterus with remaining cervical stump

== ENCOUNTER 2024-07-01 09:45 | Emergency (ER) | payer OTHER ==
[~2024-07-01] VITALS: Ht 165.1 cm; Wt 103.0 kg
[~2024-07-01 09:45] MED LIST changes: +Ondansetron4 MG SL
[2024-07-01 09:54] VITALS: BP 128/63
[2024-07-01] MEDS ORDERED: FAMOTIDINE 50 ML IV ONE (10:05)
[2024-07-01] MEDS ORDERED: SODIUM CHLORIDE 0.9% 1,000 ML IV ONE (10:05)
[2024-07-01] MEDS ORDERED: Prochlorperazine Edisylate 10 MG/2 ML VIAL IV ONE (10:05)
[2024-07-01] MEDS ORDERED: diphenhydrAMINE hydrochloride 50 MG/ML VIAL IV ONE (10:05)
[2024-07-01 10:50] LABS: BASO % 0.3 % (0.0-1.0); EOS # 0.1 10*3/uL (0.0-0.4); EOS % 0.8 % (1.0-4.0); HEMATOCRIT 41.5 % (37.0-47.0); MEAN CELL VOLUME 87.6 fl (81.0-99.0); MEAN CORPUSCULAR HGB 26.8 pg (27.0-31.0); MEAN CORPUSCULAR HGB CONC 30.6 g/dl (33.0-37.0); MEAN PLATELET VOLUME 9.2 fl (9.6-12.3); MONO # 0.6 10*3/uL (0.1-1.0); MONO % 9.6 % (3.0-9.0); NEUT # 3.9 10*3/uL (2.3-7.9); NEUT % 60.3 % (47.0-73.0); PLATELET COUNT AUTOMATED 241 10*3/uL (130-400); RED BLOOD COUNT 4.74 10*6/uL (4.10-5.10); RED CELL DISTRI WIDTH 13.2 % (0-14.5); WHITE BLOOD COUNT 6.4 10*3/uL (4.8-10.8)
[2024-07-01 11:18] LABS: BUN 8 mg/dl (9-23); CHLORIDE 105 mmol/L (98-107); POTASSIUM 4.1 mmol/L (3.4-5.1)
== END 2024-07-01 11:47 | disposition home or self-care (01) ==
LOC: ED 09:45
PROVIDERS: Emergency Medicine
DX: R11.2 Nausea with vomiting, unspecified (principal); R19.7 Diarrhea, unspecified; M54.50 Low back pain, unspecified; F31.9 Bipolar disorder, unspecified; J45.909 Unspecified asthma, uncomplicated; I10 Essential (primary) hypertension; E78.5 Hyperlipidemia, unspecified; Z88.0 Allergy status to penicillin; Z88.2 Allergy status to sulfonamides; Z88.8 Allergy status to other drugs, medicaments and biological substances; Z91.040 Latex allergy status; Z79.899 Other long term (current) drug therapy; Z90.710 Acquired absence of both cervix and uterus; Z90.89 Acquired absence of other organs

== ENCOUNTER 2024-07-11 22:35 | Emergency (ER) | payer OTHER ==
[~2024-07-11] VITALS: Ht 165.1 cm; Wt 104.3 kg
[2024-07-11 23:05] VITALS: BP 125/75
[2024-07-11] MEDS ORDERED: Prochlorperazine Edisylate 10 MG/2 ML VIAL IV ONE (23:15)
[2024-07-11] MEDS ORDERED: SODIUM CHLORIDE 0.9% 500 ML IV ONE (23:15)
[2024-07-11] MEDS ORDERED: diphenhydrAMINE hydrochloride 50 MG/ML VIAL IV ONE (23:15)
[2024-07-11] MEDS ORDERED: FAMOTIDINE 50 ML IV ONE (23:15)
[2024-07-11 23:29] LABS: BASO % 0.3 % (0.0-1.0); EOS # 0.2 10*3/uL (0.0-0.4); EOS % 3.5 % (1.0-4.0); HEMATOCRIT 41.1 % (37.0-47.0); MEAN CELL VOLUME 85.8 fl (81.0-99.0); MEAN CORPUSCULAR HGB 26.7 pg (27.0-31.0); MEAN CORPUSCULAR HGB CONC 31.1 g/dl (33.0-37.0); MEAN PLATELET VOLUME 9.4 fl (9.6-12.3); MONO # 0.9 10*3/uL (0.1-1.0); MONO % 13.2 % (3.0-9.0); NEUT % 59.7 % (47.0-73.0); PLATELET COUNT AUTOMATED 230 10*3/uL (130-400); RED BLOOD COUNT 4.79 10*6/uL (4.10-5.10); RED CELL DISTRI WIDTH 13.2 % (0-14.5); WHITE BLOOD COUNT 6.6 10*3/uL (4.8-10.8)
[2024-07-11 23:45] LABS: BILIRUBIN Negative (Negative); BLOOD Negative (Negative); CLARITY Clear (Clear); COLOR Yellow (Yellow); GLUCOSE Negative (Negative); KETONE Trace (Negative); LEUKO ESTERASE Negative (Negative); NITRITE Negative (Negative); SPECIFIC GRAVITY >= 1.030 (1.001-1.030)
[2024-07-11 23:49] LABS: BUN 7 mg/dl (9-23); CHLORIDE 104 mmol/L (98-107); POTASSIUM 3.7 mmol/L (3.4-5.1)
[2024-07-11 23:54] LABS: HYALINE CAST 0-2; MUCOUS 1+; RBC 0-2 rbc/hpf (0-2); WBC 0-2 wbc/hpf (0-5)
[2024-07-12] MEDS ORDERED: COMPAZINE5 M3 PO (00:22)
== END 2024-07-12 00:45 | disposition home or self-care (01) ==
LOC: ED 22:35
PROVIDERS: Internal Medicine
DX: R11.2 Nausea with vomiting, unspecified (principal); F41.9 Anxiety disorder, unspecified; K21.9 Gastro-esophageal reflux disease without esophagitis; F32.A Depression, unspecified; J45.909 Unspecified asthma, uncomplicated; Z88.0 Allergy status to penicillin; Z88.2 Allergy status to sulfonamides; Z88.1 Allergy status to other antibiotic agents; Z88.8 Allergy status to other drugs, medicaments and biological substances; Z91.040 Latex allergy status; Z90.711 Acquired absence of uterus with remaining cervical stump; Z90.89 Acquired absence of other organs; Z98.890 Other specified postprocedural states

== ENCOUNTER 2024-11-11 22:20 | Emergency (ER) | payer OTHER ==
[~2024-11-11] VITALS: Ht 165.1 cm; Wt 115.7 kg
[2024-11-11 22:30] VITALS: BP 143/76
[2024-11-11] MEDS ORDERED: Ondansetron Hydrochloride 4 MG TAB SL ONE (22:55)
== END 2024-11-12 00:30 | disposition home or self-care (01) ==
LOC: ED 22:20
DX: U07.1 COVID-19 (principal); J45.909 Unspecified asthma, uncomplicated; F32.A Depression, unspecified; F41.9 Anxiety disorder, unspecified; K21.9 Gastro-esophageal reflux disease without esophagitis; Z79.899 Other long term (current) drug therapy; Z88.0 Allergy status to penicillin; Z88.2 Allergy status to sulfonamides; Z88.8 Allergy status to other drugs, medicaments and biological substances; Z91.040 Latex allergy status; Z90.89 Acquired absence of other organs; Z98.890 Other specified postprocedural states

== ENCOUNTER → 2024-12-25 | Outpatient (CLI) | payer OTHER | END | disposition home or self-care (01) | LOC: RAD 07:25 | PROVIDERS: ATTEND Nurse Practitioner Primary Care | DX: M41.86 Other forms of scoliosis, lumbar region (principal); M46.06 Spinal enthesopathy, lumbar region; M54.9 Dorsalgia, unspecified ==

== ENCOUNTER → 2025-05-07 | Outpatient (CLI) | payer OTHER | END | disposition home or self-care (01) | LOC: MRI 03:41 | PROVIDERS: ATTEND Nurse Practitioner Primary Care | DX: M47.816 Spondylosis without myelopathy or radiculopathy, lumbar region (principal); M48.061 Spinal stenosis, lumbar region without neurogenic claudication; M51.369 Other intervertebral disc degeneration, lumbar region without mention of lumbar back pain or lower extremity pain; M54.9 Dorsalgia, unspecified; M54.30 Sciatica, unspecified side; M47.27 Other spondylosis with radiculopathy, lumbosacral region ==